=== PATIENT | male | born 1935 | race Caucasian/White ===

== ENCOUNTER 2024-04-25 11:20 | Outpatient (REF) | payer MEDICARE, BC, SELFPAY ==
--- NOTE | ~2024-04-25 | XR_ITS ---
Exam: X-ray lumbar spine, right knee, right hip and pelvis INDICATION: Patient states fall and pain in the hip and back COMPARISON: None TECHNIQUE: 4 views of the lumbar spine, 3 views of the right knee, and 2 views of the pelvis as well as AP and frog lateral views of the right hip. FINDINGS: Lumbar spine: Mild dextro scoliosis of the lumbar spine Bones are diffusely demineralized. Surgical clips right upper quadrant. Extensive atherosclerotic aortoiliac calcifications. Facet arthritis in the lower spine. Multilevel lumbar spondylosis. Multilevel superior and inferior endplate can cavities most notable at L1, of indeterminate age and etiology. Grade 1 anterolisthesis of L4 on L5 with mild loss of disc space height. Advanced degenerative changes with loss of disc space height at L5-S1. Pelvis and right hip: Diffuse demineralization. Moderate degenerative changes in the bilateral sacroiliac joints. Marked degenerative changes on single AP views of the left hip. Marked degenerative changes in the right hip with superolateral joint space narrowing. Additional imaging with CT scan recommended if there is concern for fracture or other underlying pathology. Right knee: Diffuse demineralization. Moderate joint effusion. Mild narrowing of the medial compartment. Tiny medial and patellofemoral osteophytes. XR/XR lumbar spine 2-3V IMPRESSION: 1. Multilevel lumbar spondylosis. 2. Multilevel superior and inferior endplate can cavities most notable at L1, of indeterminate age and etiology. 3. Marked degenerative changes in the bilateral hips. 4. Moderate joint effusion right knee. 5. Additional imaging with CT scan recommended if there is concern for fracture or other underlying pathology. Electronically signed by: Maggy Lieberman MD 05/22/2024 10:02 AM EDT
--- NOTE | ~2024-04-25 | XR_ITS ---
Exam: X-ray lumbar spine, right knee, right hip and pelvis INDICATION: Patient states fall and pain in the hip and back COMPARISON: None TECHNIQUE: 4 views of the lumbar spine, 3 views of the right knee, and 2 views of the pelvis as well as AP and frog lateral views of the right hip. FINDINGS: Lumbar spine: Mild dextro scoliosis of the lumbar spine Bones are diffusely demineralized. Surgical clips right upper quadrant. Extensive atherosclerotic aortoiliac calcifications. Facet arthritis in the lower spine. Multilevel lumbar spondylosis. Multilevel superior and inferior endplate can cavities most notable at L1, of indeterminate age and etiology. Grade 1 anterolisthesis of L4 on L5 with mild loss of disc space height. Advanced degenerative changes with loss of disc space height at L5-S1. Pelvis and right hip: Diffuse demineralization. Moderate degenerative changes in the bilateral sacroiliac joints. Marked degenerative changes on single AP views of the left hip. Marked degenerative changes in the right hip with superolateral joint space narrowing. Additional imaging with CT scan recommended if there is concern for fracture or other underlying pathology. Right knee: Diffuse demineralization. Moderate joint effusion. Mild narrowing of the medial compartment. Tiny medial and patellofemoral osteophytes. XR/XR knee RT 3V IMPRESSION: 1. Multilevel lumbar spondylosis. 2. Multilevel superior and inferior endplate can cavities most notable at L1, of indeterminate age and etiology. 3. Marked degenerative changes in the bilateral hips. 4. Moderate joint effusion right knee. 5. Additional imaging with CT scan recommended if there is concern for fracture or other underlying pathology. Electronically signed by: Maggy Lieberman MD 05/22/2024 10:02 AM EDT
--- NOTE | ~2024-04-25 | XR_ITS ---
Exam: X-ray lumbar spine, right knee, right hip and pelvis INDICATION: Patient states fall and pain in the hip and back COMPARISON: None TECHNIQUE: 4 views of the lumbar spine, 3 views of the right knee, and 2 views of the pelvis as well as AP and frog lateral views of the right hip. FINDINGS: Lumbar spine: Mild dextro scoliosis of the lumbar spine Bones are diffusely demineralized. Surgical clips right upper quadrant. Extensive atherosclerotic aortoiliac calcifications. Facet arthritis in the lower spine. Multilevel lumbar spondylosis. Multilevel superior and inferior endplate can cavities most notable at L1, of indeterminate age and etiology. Grade 1 anterolisthesis of L4 on L5 with mild loss of disc space height. Advanced degenerative changes with loss of disc space height at L5-S1. Pelvis and right hip: Diffuse demineralization. Moderate degenerative changes in the bilateral sacroiliac joints. Marked degenerative changes on single AP views of the left hip. Marked degenerative changes in the right hip with superolateral joint space narrowing. Additional imaging with CT scan recommended if there is concern for fracture or other underlying pathology. Right knee: Diffuse demineralization. Moderate joint effusion. Mild narrowing of the medial compartment. Tiny medial and patellofemoral osteophytes. XR/XR hip RT w PEL1V IMPRESSION: 1. Multilevel lumbar spondylosis. 2. Multilevel superior and inferior endplate can cavities most notable at L1, of indeterminate age and etiology. 3. Marked degenerative changes in the bilateral hips. 4. Moderate joint effusion right knee. 5. Additional imaging with CT scan recommended if there is concern for fracture or other underlying pathology. Electronically signed by: Maggy Lieberman MD 05/22/2024 10:02 AM EDT
== END 2024-04-25 11:21 | disposition home or self-care (01) ==
LOC: HO.XRAY 11:20
PROVIDERS: PCP Internal Medicine; Visit Provider Internal Medicine
DX: M79.604 Pain in right leg (principal)
CPT/HCPCS: 72100; 73502; 73562

== ENCOUNTER 2024-04-30 13:44 | Outpatient (AMB) | payer MEDICARE, SELFPAY ==
--- NOTE | 2024-04-30 13:44 | MHC.OFFVIS ---
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 The patient states that he 1st injured his low back approximately 1 year ago when he fell in his bathroom. He fell directly onto his back. He reaggravated his back several months ago while unloading boxes of tile from a pickup truck. The patient had acute onset of pain which radiated down his right leg. Has failed the last 3 months of conservative treatment including a home exercise program, topical creams, as well as Tylenol and anti-inflammatory medicines. The patient states that his low back pain is interfering with his activities of daily living and his ability to sleep well through the night. Also reports intermittent weakness in his right leg. He has been walking with a cane because of his weakness. Allergies No Known Allergies Allergy (Verified 04/30/24 13:48) Medication List - Last Reconciled 04/30/24 by Cedric Graves MD amlodipine 5 mg PO DAILY aspirin (Adult Low Dose Aspirin) 81 mg PO DAILY atorvastatin 40 mg PO DAILY clopidogrel 75 mg PO DAILY hydrochlorothiazide 25 mg PO DAILY omeprazole 20 mg PO DAILY oxybutynin chloride ER 10 mg PO DAILY tamsulosin 0.4 mg PO DAILY [facility] Social History (Updated 04/30/24 @ 13:53 by Porfirio Fritz) Alcohol intake: current Alcohol intake frequency: holidays/special occasions only Patient Tobacco Use Status: Never used Tobacco Physical Exam Const Other: Telehealth Results Reviewed Results Reviewed: X-rays of the patient's lumbar spine show moderate diffuse degenerative disc disease Assessment & Plan Assessment & Plan (1) Low back pain radiating to right leg: Code(s): M54.50 - Low back pain, unspecified; M79.604 - Pain in right leg Category: Medical Plan Mr. Cross presents with progressively worsening low back pain which radiates down his right leg most likely due to lumbar stenosis or a disc herniation. Thus, I will send the patient for an MRI of his lumbar spine for further evaluation. I will contact him by phone once the MRI results are available. He will call me prior to that time should his symptoms worsen in any way. I spent 22 minutes in reviewing the patient's records and imaging studies, speaking with the patient and documenting in the medical record. Orders: Orders lumbar spine wo con Today M54.50 - Low back pain, unspecified, M79.604 - Pain in right leg Coding Level of Care Code Tele New Pt Level 2 (54296) Diagnoses Low back pain radiating to right leg M54.50; M79.604
== END 2024-04-30 13:57 | disposition home or self-care (01) ==
LOC: HO.HOS 13:45
PROVIDERS: PCP Internal Medicine; Visit Provider Orthopaedic Surgery
DX: M54.50 Low back pain, unspecified (principal); M79.604 Pain in right leg
CPT/HCPCS: 99203

== ENCOUNTER → 2024-04-30 13:44 | Outpatient (BNVA) | payer MEDICARE, BC, SELFPAY | PROVIDERS: PCP Internal Medicine; Visit Provider Orthopaedic Surgery ==

== ENCOUNTER 2024-05-16 09:48 | Outpatient (AMB) | payer MEDICARE, SELFPAY ==
--- NOTE | 2024-05-16 09:51 | A.OFFVIS_ITS ---
Intake Visit Reasons: low back pain Intake Note: Juan is an 88-year-old male who presents with complaints of progressively worsening low back pain which radiates down his right leg. The patient states that he 1st injured his low back approximately 1 year ago when he fell in his bathroom. He fell directly onto his back. He reaggravated his back several months ago while unloading boxes of tile from a pickup truck. The patient had acute onset of pain which radiated down his right leg. Has failed the last 3 months of conservative treatment including a home exercise program, topical creams, as well as Tylenol and anti-inflammatory medicines. The patient states that his low back pain is interfering with his activities of daily living and his ability to sleep well through the night. Also reports intermittent weakness in his right leg. He has been walking with a cane because of his weakness. Allergies No Known Allergies Allergy (Verified 05/16/24 09:51) Medication List - Last Reconciled 05/16/24 by Cedric Graves MD amlodipine 5 mg PO DAILY aspirin (Adult Low Dose Aspirin) 81 mg PO DAILY atorvastatin 40 mg PO DAILY clopidogrel 75 mg PO DAILY hydrochlorothiazide 25 mg PO DAILY omeprazole 20 mg PO DAILY oxybutynin chloride ER 10 mg PO DAILY tamsulosin 0.4 mg PO DAILY [facility] Social History (Updated 04/30/24 @ 13:53 by Porfirio Fritz) Alcohol intake: current Alcohol intake frequency: holidays/special occasions only Patient Tobacco Use Status: Never used Tobacco Physical Exam Const Other: Well-nourished well-developed very friendly male awake alert and oriented x3 in no acute distress Back/Spine/Pelvis Other: Low back examination shows right-sided paraspinal muscle tenderness, pain with range of motion, positive straight leg raise test on the right at 70 degrees Results Reviewed Results Reviewed: MRI of the patient's lumbar spine performed at [facility] shows severe central stenosis at level L4-L5 Assessment & Plan Assessment & Plan (1) Low back pain radiating to right leg: Code(s): M54.50 - Low back pain, unspecified; M79.604 - Pain in right leg Category: Medical Plan Mr. Cross presents with progressively worsening low back pain which radiates down his right leg as well as associated right leg weakness possibly due to lumbar stenosis. Thus, I will arrange for the patient to have a follow-up appointment in our neurosurgery department here at [facility]. The patient will contact me prior to that appointment should his symptoms worsen in any way. Feel free to call me at any time should questions regarding his orthopedic management arise. I spent 21 minutes in reviewing the patient's records and imaging studies, seeing the patient and documenting in the medical record. Coding Level of Care Code Est Pt Level 3 (22414) Complex EM visit Add On G2211 Diagnoses Low back pain radiating to right leg M54.50; M79.604
== END 2024-05-16 10:19 | disposition home or self-care (01) ==
PROVIDERS: PCP Internal Medicine; Visit Provider Orthopaedic Surgery
DX: M54.50 Low back pain, unspecified (principal); M79.604 Pain in right leg
CPT/HCPCS: 99213

== ENCOUNTER → 2024-05-16 09:48 | Outpatient (BNVA) | payer BC, SELFPAY | PROVIDERS: PCP Internal Medicine; Visit Provider Orthopaedic Surgery ==

== ENCOUNTER 2024-06-03 10:03 | Outpatient (AMB) | payer MEDICARE, SELFPAY ==
--- NOTE | 2024-06-03 10:21 | A.SPINEOV_ITS ---
Intake Visit Reasons: low back pain down to his right leg Intake Note: Mr. Cross is here today c/o low back pain radiating down his rt. leg. MRI done @ [facility]. [employer] Pile [employer] Operator Required: No Allergies No Known Allergies Allergy (Verified 06/03/24 10:22) Assessment & Plan Assessment & Plan (1) Lumbar stenosis: Code(s): M48.061 - Spinal stenosis, lumbar region without neurogenic claudication Category: Medical (2) Spondylolisthesis, lumbar region: Code(s): M43.16 - Spondylolisthesis, lumbar region Category: Medical Plan Dear Dr Graves, Thank you for referring Mr Cross to our office today. He is a very nice 88-year-old gentleman history of a stroke, on Plavix and aspirin since 2017, presents with several months low back pain centered in the middle of his low back radiating down his right leg into his outer calf in his foot. It is aggravated with standing and walking and better when he sits but also can be present at nighttime. To this point, he just been really hoping that it would go away, but unfortunately the symptoms have only continued to progress. He will take an Aleve occasionally if he knows he is going to have to go somewhere where it will require prolonged standing or walking. He had an MRI done at the [facility] and this shows spondylolisthesis at L4-5 with severe stenosis. PMH: He has a history of bladder cancer, he has had intra bladder chemotherapy in his follow up for this with routine cystoscopies and has been stable. 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 He was started on aspirin and Plavix for this. I reviewed the notes from [facility] at that time and it was unclear why he had the stroke. He has been on aspirin and Plavix ever since that time. The original note from the neurologist recommended he stay on it for just 3 months. History of hypertension, high cholesterol, BPH, GERD, cholecystectomy. He denies any CAD, arrhythmias, pulmonary problems, major abdominal surgeries, blood clots, renal disease. Social hx: He does not smoke, he does routinely use alcohol but not on a daily basis, no marijuana recreational drugs Medications: Aspirin, Plavix, amlodipine, hydrochlorothiazide, oxybutynin, tamsulosin, omeprazole, multivitamin, stool softener Allergies: None Physical exam: He is awake alert oriented no acute distress, he is able stand up out of a chair on his own, reports midline low back pain, motor examination reveals weakness of his right hand which I would rate as 4-5 rest of his motor strength is normal. Reflexes diminished in the lower extremities. Gait is normal. Imaging review: Lumbar MRI done at the [facility] shows spondylolisthesis at L4-5. Surprisingly he has overall fairly good disc quality. There are some degenerative changes and overgrowth of ligament and facets causing moderate to severe stenosis at L4-5. There is also a grade 1 spondylolisthesis at this level. There are some other more minor degenerative changes but none significant as L4-5. There is an old compression fracture at L1. Impression: 88-year-old male presents with several months of midline back pain radiating down his right leg into his calf and foot which seems consistent with the stenosis we see at L4-5. There is a spondylolisthesis at L4-5 and because of the complaint of back pain, we should get standing flexion-extension x-rays. If there is no instability, this is something usually Dr. Tijerina will treat with a simple decompression. We did briefly discuss this as well as the recovery, risks, benefits etc.. I will review everything with Dr. Tijerina and get back to the patient with a final plan. Obviously, he could consider things like injections and physical therapy as part of his treatment plan, but typically with central canal stenosis like this those are limited yield to what they can provide him for any long-term benefit. We did talk about the fact that he would need to come off his aspirin and Plavix if he were to consider surgery. Typically this is 10 days before the surgery and resumed 1 week after surgery. Thank you for allowing us to care for your patient. The total time spent with this visit with this patient was 45 minutes reviewing history, physical exam, lumbar imaging review, and implementation of treatment plan or further diagnostic testing Saad Tijerina MD,PhD [facility] Orders: Orders XR lumbar spine 4V min Today M43.16 - Spondylolisthesis, lumbar region, M48.061 - Spinal stenosis, lumbar region without neurogenic claudication Coding Level of Care Code New Pt Level 4 (83258) Diagnoses Lumbar stenosis M48.061 Spondylolisthesis, lumbar region M43.16
== END 2024-06-03 11:29 | disposition home or self-care (01) ==
PROVIDERS: PCP Internal Medicine; Referring Provider Orthopaedic Surgery; Visit Provider Physician Assistant
DX: M48.061 Spinal stenosis, lumbar region without neurogenic claudication (principal); M43.16 Spondylolisthesis, lumbar region
CPT/HCPCS: 99204

== ENCOUNTER 2024-06-03 10:03 | Outpatient (REF) | payer MEDICARE, SELFPAY ==
--- NOTE | ~2024-06-03 | XR_ITS ---
EXAMINATION: XR LUMBOSACRAL SPINE CLINICAL INFORMATION: Lumbar spinal stenosis, without neurogenic claudication. COMPARISON: Lumbar spine radiographs dated 04/25/2024. TECHNIQUE: AP, bilateral oblique and lateral views of the lumbar spine and lateral view of the lumbosacral junction. FINDINGS: There is bony demineralization. There is a slight lumbar levoscoliosis. There is a mild L1 anterior wedge compression fracture. At T9-10 through T11-12, there is mild disc space narrowing, with vacuum disc phenomenon. At L4-5, there is a 4 mm anterolisthesis. At L5-S1, there is marked degenerative disc disease, with vacuum disc phenomenon. No acute fracture or spondylolisthesis is seen. There is multi-level thoracolumbar endplate arthropathy. The posterior elements are intact. No spondylolysis defect is seen. There is facet arthropathy at L5-S1. Aortoiliac atherosclerotic calcifications are seen. XR/XR lumbar spine 4V min IMPRESSION: 1. There is a mild L1 anterior wedge compression fracture. 2. There is multi-level lower thoracic and lumbar degenerative disc disease, most pronounced at L5-S1, where degenerative disc disease is marked. 3. There is a slight lumbar levoscoliosis. 4. There is facet arthropathy at L5-S1. Electronically signed by: Terence Simental MD 06/03/2024 09:17 PM EDT
== END 2024-06-03 10:04 | disposition home or self-care (01) ==
LOC: HO.XRAY 10:03
PROVIDERS: PCP Internal Medicine; Visit Provider Physician Assistant
DX: M48.061 Spinal stenosis, lumbar region without neurogenic claudication (principal); M43.16 Spondylolisthesis, lumbar region
CPT/HCPCS: 72110; 99202

== ENCOUNTER 2024-07-11 06:54 | Day surgery (SDC) | payer MEDICARE, SELFPAY ==
[2024-06-26 10:32] VITALS: BMI 36.0
--- NOTE | 2024-07-09 13:25 | HO.ANESPROP2 ---
Documented by User: Ailin Chiu NP 07/09/24 13:32 HPI - Anesthesia Eval Consult details Narrative: 88yo M for Right L4-5 Conor Laminotomy/Decompression Plavix for hx CVA PMFSH Active Problems Active Problems: All Active Problems Spondylolisthesis, lumbar region (Acute) Lumbar stenosis (Acute) Low back pain radiating to right leg (Acute) Past Medical History Medical History (Updated 06/27/24 @ 09:30 by Soha Ch RN) Diverticulosis BPH (benign prostatic hyperplasia) [place] (hard of hearing) Snores OAB (overactive bladder) Hx of bladder cancer (~2018) Arthritis Back pain GERD (gastroesophageal reflux disease) Hx-TIA (transient ischemic attack) (~2016) HLD (hyperlipidemia) HTN (hypertension) Surgical History Surgical History (Updated 06/27/24 @ 09:31 by Soha Ch RN) Hx of arthroscopic knee surgery Hx of bilateral cataract extraction Hx laparoscopic cholecystectomy (~2013) Hx of cystoscopy (~2018) Hx of colonoscopy Social History Social History (Updated 06/26/24 @ 10:30 by Soha Ch RN) Household Members: Spouse Housing: House Are you a primary child adolescent care to a significant other at home: No Do you presently have visiting nurse or other home services: No Alcohol intake: current Alcohol intake frequency: holidays/special occasions only Patient Tobacco Use Status: Never used Tobacco Use of substances other than those prescribed or required for medical reasons: No Have you been hit, kicked, punched, or otherwise hurt by someone within the past year? If so, by whom?: No Are you DNR?: No Advance Directives: No Advance Directives Information Provided: Yes Advance Directives on File: No Recently lost weight without trying: No Nutrition Risks: Surgical patient >75years Meds Allergies Allergy/AdvReac Type Severity Reaction Status Date / Time No Known Allergies Allergy Verified 07/11/24 07:07 Home Medications ?Medication ?Instructions ?Recorded ?Confirmed ?Last Taken ?Type amlodipine 5 mg tablet 5 mg PO DAILY 04/30/24 06/26/24 07/11/24 History aspirin 81 mg tablet,delayed 81 mg PO DAILY 04/30/24 06/26/24 Unknown History release (Adult Low Dose Aspirin) atorvastatin 40 mg tablet 40 mg PO DAILY 04/30/24 06/26/24 Unknown History clopidogrel 75 mg tablet 75 mg PO DAILY 04/30/24 06/26/24 Unknown History hydrochlorothiazide 25 mg tablet 25 mg PO DAILY 04/30/24 06/26/24 Unknown History omeprazole 20 mg capsule,delayed 20 mg PO DAILY 04/30/24 06/26/24 Unknown History release oxybutynin chloride 10 mg 10 mg PO DAILY 04/30/24 06/26/24 Unknown History tablet,extended release 24 hr tamsulosin 0.4 mg capsule 0.4 mg PO DAILY 04/30/24 06/26/24 Unknown History cholecalciferol (vitamin D3) 25 25 mcg PO DAILY 06/26/24 06/26/24 Unknown History mcg (1,000 unit) capsule (Vitamin D3) multivitamin 1 tab PO DAILY 06/26/24 06/26/24 Unknown History Exam Height,Weight and Vital Signs: Height 5 ft 7 in Weight 104.326 kg Pertinent Lab Results Pertinent Lab Results: CBC and BMP 06/2024 from outside facility [place] Narrative Narrative: EKG 06/2024 from outside facility SR with 1st deg AV block @ 67 Assessment and Plan Assessment Anesthesia Assessment: Chart Reviewed Documented by User: Vira Hanson MD 07/11/24 07:54 PMFSH Past Medical History Medical History (Updated 06/27/24 @ 09:30 by Soha Ch, HARPREET) Diverticulosis BPH (benign prostatic hyperplasia) [place] (hard of hearing) Snores OAB (overactive bladder) Hx of bladder cancer (~2018) Arthritis Back pain GERD (gastroesophageal reflux disease) Hx-TIA (transient ischemic attack) (~2016) HLD (hyperlipidemia) HTN (hypertension) Surgical History Surgical History (Updated 06/27/24 @ 09:31 by Shoa Ch, HARPREET) Hx of arthroscopic knee surgery Hx of bilateral cataract extraction Hx laparoscopic cholecystectomy (~2013) Hx of cystoscopy (~2019) Hx of colonoscopy History of Problems with Anesthesia: No Social History Social History (Updated 06/26/24 @ 10:30 by Soha Ch RN) Household Members: Spouse Housing: House Are you a primary child adolescent care to a significant other at home: No Do you presently have visiting nurse or other home services: No Alcohol intake: current Alcohol intake frequency: holidays/special occasions only Patient Tobacco Use Status: Never used Tobacco Use of substances other than those prescribed or required for medical reasons: No Have you been hit, kicked, punched, or otherwise hurt by someone within the past year? If so, by whom?: No Are you DNR?: No Advance Directives: No Advance Directives Information Provided: Yes Advance Directives on File: No Recently lost weight without trying: No Nutrition Risks: Surgical patient >75years Meds Allergies Allergy/AdvReac Type Severity Reaction Status Date / Time No Known Allergies Allergy Verified 07/11/24 07:07 Home Medications ?Medication ?Instructions ?Recorded ?Confirmed ?Last Taken ?Type amlodipine 5 mg tablet 5 mg PO DAILY 04/30/24 06/26/24 07/11/24 History aspirin 81 mg tablet,delayed 81 mg PO DAILY 04/30/24 06/26/24 Unknown History release (Adult Low Dose Aspirin) atorvastatin 40 mg tablet 40 mg PO DAILY 04/30/24 06/26/24 Unknown History clopidogrel 75 mg tablet 75 mg PO DAILY 04/30/24 06/26/24 Unknown History hydrochlorothiazide 25 mg tablet 25 mg PO DAILY 04/30/24 06/26/24 Unknown History omeprazole 20 mg capsule,delayed 20 mg PO DAILY 04/30/24 06/26/24 Unknown History release oxybutynin chloride 10 mg 10 mg PO DAILY 04/30/24 06/26/24 Unknown History tablet,extended release 24 hr tamsulosin 0.4 mg capsule 0.4 mg PO DAILY 04/30/24 06/26/24 Unknown History cholecalciferol (vitamin D3) 25 25 mcg PO DAILY 06/26/24 06/26/24 Unknown History mcg (1,000 unit) capsule (Vitamin D3) multivitamin 1 tab PO DAILY 06/26/24 06/26/24 Unknown History Exam Airway Mallampati Class: III TM Dist: >3cm Neck ROM: Limited Loose/Missing/Broken Teeth: Yes Heart: RRR Lungs: CTA Assessment and Plan Assessment Anesthesia Assessment: Anesthesia Plan Discussed Final Anesthetic Review History of Problems with Anesthesia: No NPO: Yes ASA Class: III Final Preanesthetic Review: Meds/Allgs Chart Reviewed, Consent Obtained/Reviewed and Anes Risks/Benef Reviewed Patient Risk: Intermediate Procedure Risk: Intermediate Anesthetic Plan Anesthetic Plan: GA Disposition: Standard PACU
[2024-07-11] VITALS (8 sets, daily range): BP systolic 144–167; BP diastolic 67–95; PULSE 66–78; RESP 14–16; TEMP 36.1–36.6; O2SAT 95–98
--- NOTE | 2024-07-11 07:03 | P.HPSUR_ITS ---
Pre-Procedural Eval Section A - 24 Hr Update-Section A only Date of Service: 07/11/24 The patient is an INPATIENT: No Changes since office visit: No Cold of Flu in the past 2 weeks, No New Medical Problems, No Changes in Medication and No Patient answered all questions The patient has been examined within 24 hours of the surgical procedure. The History & Physical has been completed within 30 days and I have reviewed it.: No Section B - Complete if H&P > 30 days Chief Complaint: Spinal stenosis, lumbar region without neurogenic Allergies: Allergies Allergy/AdvReac Type Severity Reaction Status Date / Time No Known Allergies Allergy Verified 06/26/24 10:30 Review of Systems Sugical H&P ROS: Negative: Constitution, Cardiovascular, Respiratory, Neurological, Psychiatric, Hem-Onc, Allergic/Immunologic, Gastrointestinal, Genitourinary, Musculoskeletal, Integumentary, Endocrine and Eyes/Ears/Nose/Thro at Exam Surgical H&P Exam: Normal: HEENT, Normal: Heart, Normal: Lungs, Normal: Extremities, Normal: Abdomen, Normal: Skin and Normal: Neurological (awake, alert,oriented x 3 ) Plan Diagnosis/Plan: Unchanged right L4-5 hemilaminotomy and decompression Time Spent With Patient Time: Total time managing care of this patient today _6___ minutes.
[2024-07-11] MEDS: Gabapentin 300 MG CAPSULE PO (07:30)
[2024-07-11] MEDS: methocarbamoL 750 MG TABLET PO (07:31)
[2024-07-11] MEDS: Lactated Ringers 1,000 ML 100 ML IVCONT (07:59)
--- NOTE | 2024-07-11 08:34 | P.DS_ITS ---
DS: Providers Provider Date of Service: 07/11/24 Date of discharge: 07/11/24 Primary care physician: Gerber Daniels MD Admitting clinician: Mehrdad Tijerina DS: Diagnosis Discharge Diagnosis (1) Lumbar stenosis: Status: Acute DS: Summary Time Attestation Discharge Coordination Time (in mins): 4 Quality: Safe Use of Opioids Does Pt have an Active Cancer Diagnosis on the Problem List?: No Quality: Stroke Does the patient have a stroke diagnosis?: No Physical Exam Vital Signs: Vital Signs: Last Vital Signs Temp 97.0 F 07/11/24 08:00 Pulse 76 07/11/24 08:00 Resp 14 07/11/24 08:00 BP 144/67 H 07/11/24 08:00 Pulse Ox 95 07/11/24 08:00 O2 Del Method Room Air 07/11/24 08:00 BMI result Body Mass Index 36.0 Discharge Plan Discharge Patient Disposition: Home, Self-Care Referrals: Gerber Daniels MD [Primary Care Provider] - 1 Week Discharge Medications: New docusate sodium [Colace] 100 mg capsule 100 mg PO BID Qty: 20 0RF oxycodone 5 mg tablet 5 mg PO Q4H PRN (Reason: pain) Qty: 20 0RF Rx Instructions: Partial Fill upon patient request. Continued multivitamin Tablet 1 tab PO DAILY cholecalciferol (vitamin D3) [Vitamin D3] 25 mcg (1,000 unit) Capsule 25 mcg PO DAILY atorvastatin 40 mg tablet 40 mg PO DAILY amlodipine 5 mg tablet 5 mg PO DAILY hydrochlorothiazide 25 mg tablet 25 mg PO DAILY oxybutynin chloride 10 mg tablet extended release 24hr 10 mg PO DAILY tamsulosin 0.4 mg capsule 0.4 mg PO DAILY omeprazole 20 mg capsule,delayed release(DR/EC) 20 mg PO DAILY Held clopidogrel 75 mg tablet 75 mg PO DAILY Hold Instructions: Resume on 07/18/24. you may resume plavix one week after surgery aspirin [Adult Low Dose Aspirin] 81 mg tablet,delayed release (DR/EC) 81 mg PO DAILY Hold Instructions: Resume on 07/18/24. You may resume 1 week after surgery Discharge Orders: Discharge Order (Routine); Ordered 07/11/24 Ordered By: Saad Penny Diet: Advance to usual diet Activity on Discharge: As tolerated Activity Restrictions/Additional Instructions: After your spinal surgery we ask you to observe the following restrictions/guidelines: Activity: It is normal to feel some discomfort as you increase your activity, but that will improve with time. We ask you avoid heavy lifting or acitivities that cause pain. As a general ru le, 8lbs is a safe limit for lifting right after surgery. Walk as much as you feel comfortable but not to exhaustion. You will feel extra tired the first few days after surgery. Stay well hydrated. It is OK to walk up and down stairs You may return to driving when you are off narcotics (such as vicodin, oxycodone, dilaudid, etc), and you are back to normal functional capacity. If you have any concerns please check with office before driving. Return to work is specific to each patient and each surgery, so please speak with your doctor/PA at first follow up. Please bring paperwork such as FMLA at that time if you need it filled out. Medications: You may resume aspirin and Plavix 1 week after surgery For optimum pain control, it is best to start with a combination of 500 mg of Tylenol every 4 hours with 600 mg of Motrin every 8 hours, and use narcotics as needed in between for breakthrough pain. We will give you a short supply of narcotics after surgery (usually one weeks worth). If you need more please call the office but do not use more than prescribed. You will need to give our office 48 hours notice if you need narcotics refilled and we do not fill narcotics on weekends or evenings. If you are on a narcotic, it is a good idea to take a stool softener such as colace or senna to avoid constipation If you take blood thinner such as aspirin, Plavix, Coumadin, Effient, Eliquis etc for conditions such as Afib, DVT, Pulmonary embolus, coronary disease, stents etc please speak with your surgeon about specific details as to when you can resume these medications. You can resume NSAIDs on post op day 1 (eg: Motrin, Naproxen, etc). Follow up: Please call the office, , after surgery to arrange a 3 week follow up for wound check. Wound Care: You may remove your dressing on the first day after surgery. ?You may ?leave open to air. Please do not remove the steri strips underneath. they will fall off on their own in one week. IT IS NORMAL FOR THE WOUND TO OOZE OR BE BLOODY FOR A FEW DAYS AFTER SURGERY. ?IF THIS HAPPENS JUST PLACE NEW DRESSING OVER IT TO AVOID STAINING CLOTHES. You may shower on post op day # 1 We ask that you do not let the water soak the wound. If it does get wet, just towel dry lightly. Please do not scrub your incision or place any type of chemical/ointment on the wound. No tub baths, pools or jacuzzis for one month. If you have any leaking or redness from your wound, or fevers, please call office Print Language: Gabonese
--- NOTE | 2024-07-11 09:30 | P.OP_ITS ---
Operative Note Operative Note Date of Service: 07/11/24 Narrative: Preoperative Diagnosis: L4-5 spinal stenosis/lateral recess stenosis/neural foraminal stenosis Operation: Right L4-5 Laminotomy, Partial facetectomy and foraminotomy with use of microscope Consent Informed Consent was obtained for this operation. I have explained the nature, purpose and benefits of the operation. I have discussed the risks and benefit of the operation including possible complications or adverse events with patient/family. Alternative(s) were discussed with the patient with their relative benefits and risks as well as the consequences of not accepting the operation were included in obtaining consent. Surgeon: TOBY LANDAVERDE MD, PHD Procedure Assisted By: Saad Montgomery Description of Procedure This patient is suffering from unilateral neurogenic claudication due to lumbar spinal stenosis. The patient was offered a decompression. The procedure complications were explained. The patient was consented. The patient was brought to the operating room and endotracheally intubated. The patient was turned in prone position on the Kvng frame. Prep and drape was done followed by timeout. The Physician assistant professor sculpture provided access. A mid lumbar incision was made followed by release of the paravertebral muscle on the right side to expose the right L4- 5 lamina and facet joints. An intraoperative x-ray was obtained to confirm the correct level. The microscope was brought in. I took over the procedure. The high-speed drill was used to do a right L4-5 laminotomy until flavum ligament was reached. A #2 Kerrison was used to expand the laminotomy near flush to the pedicles and to include a partial facetectomy. The flavum ligament was opened and resected with a #3 Kerrison to decompress the underlying thecal sac. The flavum ligament was removed to decompress the lateral recess and the exiting L5 nerve root. A long nerve hook could be easily passed along the medial side of the pedicle as a sign of adequate decompression. The microscope was removed. Hemostasis was done. The physician assistant professor sculpture close the Incision in 2 layers. Steri-Strips were used to approximate incision. An OpSite with Tegaderm was used to cover the incision. All sponge needle counts were correct. Patient was extubated and transported in stable is to recovery room. Anesthesia: General Estimated Blood Loss (ml): 15 Complications: None Duration of Surgery: Under 60 Minutes Postoperative Plan: Discharge to home
== END 2024-07-11 11:17 | disposition home or self-care (01) ==
PROVIDERS: PCP Internal Medicine; Visit Provider Neurological Surgery
PROC: (CPT 63047; principal; 2024-07-11 09:00)
DX: M48.061 Spinal stenosis, lumbar region without neurogenic claudication (principal); M43.16 Spondylolisthesis, lumbar region; I10 Essential (primary) hypertension; E78.00 Pure hypercholesterolemia, unspecified; K21.9 Gastro-esophageal reflux disease without esophagitis; Z86.73 Personal history of transient ischemic attack (TIA), and cerebral infarction without residual deficits; N40.0 Benign prostatic hyperplasia without lower urinary tract symptoms; Z85.51 Personal history of malignant neoplasm of bladder; Z79.01 Long term (current) use of anticoagulants; Z79.82 Long term (current) use of aspirin; Z79.899 Other long term (current) drug therapy; Z90.49 Acquired absence of other specified parts of digestive tract
CPT/HCPCS: 63047; J0131; J0690; J1100; J2405; J2704; J3010

== ENCOUNTER → 2024-07-11 06:54 | Outpatient (BNV) | payer MEDICARE, SELFPAY | PROVIDERS: PCP Internal Medicine; Visit Provider Neurological Surgery | DX: M48.061 Spinal stenosis, lumbar region without neurogenic claudication (principal) | CPT/HCPCS: 63047; 99499 ==

== ENCOUNTER 2024-08-01 11:16 | Outpatient (AMB) | payer MEDICARE, SELFPAY ==
--- NOTE | 2024-08-01 11:23 | HO.SPINEOV ---
Intake Visit Reasons: 1st post op Intake Note: Mr. Cross is here today for his 1st post-op visit. Hand Ii Blocker Required: No Allergies No Known Allergies Allergy (Verified 07/11/24 07:07) Assessment & Plan Assessment & Plan (1) Lumbar stenosis: Code(s): M48.061 - Spinal stenosis, lumbar region without neurogenic claudication Category: Medical Plan Operation: Right L4-5 Laminotomy, Partial facetectomy and foraminotomy Juan comes in today for his 1st postoperative visit. He reports she is very satisfied with the surgery and feels much better than he did preoperatively. The patient reports he is up walking around and completing the majority of his ADLs. 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 He does still reports some residual right-sided leg pain, which we discussed. This is likely due to the postoperative inflammation he was experiencing accompanied by his increased activity by returning to work the day after surgery. No new neurological deficits. Patient is able to ambulate well, rises from a seated position without difficulty. Incision site is closed, well healing, with no signs of drainage. We will follow-up with the patient in 6 weeks for their 2nd postoperative visit. Joel Tijerina MD,PhD [facility] Coding Level of Care Code Global (43899) Diagnoses Lumbar stenosis M48.061
== END 2024-08-01 11:38 | disposition home or self-care (01) ==
PROVIDERS: PCP Internal Medicine; Visit Provider Physician Assistant
DX: M48.061 Spinal stenosis, lumbar region without neurogenic claudication (principal)
CPT/HCPCS: 99024

== ENCOUNTER → 2024-08-01 11:16 | Outpatient (BNVA) | payer MEDICARE, SELFPAY | PROVIDERS: PCP Internal Medicine; Visit Provider Physician Assistant | DX: M48.061 Spinal stenosis, lumbar region without neurogenic claudication (principal); Z47.89 Encounter for other orthopedic aftercare; Z98.890 Other specified postprocedural states | CPT/HCPCS: 99212 ==

== ENCOUNTER 2024-09-09 13:09 | Outpatient (AMB) | payer MEDICARE, SELFPAY ==
--- NOTE | 2024-09-09 13:13 | MHC.OFFVIS ---
Intake Visit Reasons: Right knee pain Intake Note: [place] 89 yr old male presents with complaints of progressively worsening right knee pain. He describes his pain as sharp in nature. His pain has gotten worse over the last year in spite of continued non operative treatments. He has tried physical therapy exercises which aggravated his pain. He has also tried Aleve and Tylenol which gave him minimal relief. He denies any locking or giving way. He would like to hold off on surgery for as long as possible. Allergies No Known Allergies Allergy (Verified 09/09/24 13:24) Medication List - Last Reconciled 09/09/24 by Cedric Graves MD amlodipine 5 mg PO DAILY aspirin (Adult Low Dose Aspirin) 81 mg PO DAILY atorvastatin 40 mg PO DAILY cholecalciferol (vitamin D3) (Vitamin D3) 25 mcg PO DAILY clopidogrel 75 mg PO DAILY docusate sodium (Colace) 100 mg PO BID hydrochlorothiazide 25 mg PO DAILY multivitamin 1 tab PO DAILY omeprazole 20 mg PO DAILY oxybutynin chloride ER 10 mg PO DAILY oxycodone 5 mg PO Q4H PRN tamsulosin 0.4 mg PO DAILY PFSH Medical History (Updated 09/09/24 @ 13:34 by Cedric Graves MD) Diverticulosis BPH (benign prostatic hyperplasia) [place] (hard of hearing) Snores OAB (overactive bladder) Hx of bladder cancer (~2018) Arthritis Back pain GERD (gastroesophageal reflux disease) Hx-TIA (transient ischemic attack) (~2017) HLD (hyperlipidemia) HTN (hypertension) Surgical History (Updated 06/27/24 @ 09:31 by Soha Ch RN) Hx of arthroscopic knee surgery Hx of bilateral cataract extraction Hx laparoscopic cholecystectomy (~2013) Hx of cystoscopy (~2019) Hx of colonoscopy Social History Household Members: Spouse Housing: House Are you a primary progressive care manager to a significant other at home: No Do you presently have visiting nurse or other home services: No Alcohol intake: current Alcohol intake frequency: holidays/special occasions only Patient Tobacco Use Status: Never used Tobacco Physical Exam Const Other: Well-nourished well-developed very friendly male awake alert and oriented x3 in no acute distress Extrem Other: Right knee examination shows a minimal effusion palpable crepitus with of motion, pain with range of motion, no instability Office Procedures AMB Joint Injection/Aspiration Joint Injection/Aspiration Primary Site: right knee Prep: site was prepped using aseptic technique Injected: 40 mg of, DepoMedrol and 1% plain lidocaine Procedure: The patient tolerated the procedure well Coding - Large joint Procedure code (CPT) selection complete Results Reviewed Results Reviewed: X-rays of the patient's right knee taken previously show joint space narrowing, subchondral sclerosis, no acute bony abnormalities Assessment & Plan Assessment & Plan (1) Arthritis of right knee: Code(s): M17.11 - Unilateral primary osteoarthritis, right knee Category: Medical (2) Right knee pain: Code(s): M25.561 - Pain in right knee Plan James presents with right knee pain due to degenerative joint disease. I had a lengthy discussion with the patient regarding the treatment options. The risks and benefits of a right knee cortisone injection were discussed at length with the patient. The patient wished to proceed. He tolerated the injection well. He will continue with his home exercise program. He will contact me prior to his follow-up appointment in 3 months should any questions or concerns arise. Feel free to call me at any time should questions regarding his orthopedic management arise. I spent 22 minutes in reviewing the patient's records and imaging studies, seeing the patient and documenting in the medical record. Orders: Orders AMB Joint Injection/Aspiration Today M17.11 - Unilateral primary osteoarthritis, right knee Coding Level of Care Code Est Pt Level 3 (04959) Complex EM visit Add On G2211 Diagnoses Arthritis of right knee M17.11 Right knee pain M25.561 CPT Codes Coding - Large joint: 05209 - Large joint ([id number])
== END 2024-09-09 13:33 | disposition home or self-care (01) ==
PROVIDERS: PCP Internal Medicine; Visit Provider Orthopaedic Surgery
DX: M17.11 Unilateral primary osteoarthritis, right knee (principal)
CPT/HCPCS: 20610; 99213

== ENCOUNTER → 2024-09-09 13:09 | Outpatient (BNVA) | payer MEDICARE, SELFPAY | PROVIDERS: PCP Internal Medicine; Visit Provider Orthopaedic Surgery | DX: M17.11 Unilateral primary osteoarthritis, right knee (principal) | CPT/HCPCS: 20610; 99212; J1010; J2003 ==

== ENCOUNTER 2024-09-12 11:07 | Outpatient (AMB) | payer MEDICARE, SELFPAY ==
--- NOTE | 2024-09-12 11:11 | A.SPINEOV_ITS ---
Intake Visit Reasons: 2nd post op Intake Note: Mr. Cross is here today for his 2nd post op. Manager Studio Required: No Allergies No Known Allergies Allergy (Verified 09/09/24 13:24) Assessment & Plan Assessment & Plan (1) Lumbar stenosis: Code(s): M48.061 - Spinal stenosis, lumbar region without neurogenic claudication Category: Medical Plan Operation: Right L4-5 Laminotomy, Partial facetectomy and foraminotomy Juan is a pleasant 89 year old male who comes in today for his second postoperative visit. 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 He had also stated he still had some residual right-sided leg pain. He continues to suffer from issues with his right knee, which is being [place] up [place] [facility] [place] He feels his back pain and right hip pain are much better than before surgery. He has continued working, and feels he has made progress with his spine. Unfortunately he still has quite a bit of right knee and anterior tibilias pain, but he did say the recent knee injection he had was helpful for this. No new neurological deficits, patient ambulates well and rises from a seated position without trouble. Posterior incision site is closed and well healed. There is no need for continued routine follow up with Juan. He should continue following up with orthopedics. Joel Tijerina MD,PhD [facility] Coding Level of Care Code Global (13579) Diagnoses Lumbar stenosis M48.061
== END 2024-09-12 11:58 | disposition home or self-care (01) ==
PROVIDERS: PCP Internal Medicine; Visit Provider Physician Assistant
DX: M48.061 Spinal stenosis, lumbar region without neurogenic claudication (principal)
CPT/HCPCS: 99024

== ENCOUNTER → 2024-09-12 11:07 | Outpatient (BNVA) | payer MEDICARE, SELFPAY | PROVIDERS: PCP Internal Medicine; Visit Provider Physician Assistant | DX: M48.061 Spinal stenosis, lumbar region without neurogenic claudication (principal) | CPT/HCPCS: 99212 ==

== ENCOUNTER 2024-12-10 13:08 | Outpatient (AMB) | payer MEDICARE, SELFPAY ==
--- NOTE | 2024-12-10 13:13 | MHC.OFFVIS ---
Vital Signs 12/10/24 13:20 Height 5 ft 7 in Weight 230 lb BMI 36.0 Intake Visit Reasons: Right shoulder pain Intake Note: Juan is an 89 year old male who presents with complaints of progressively worsening right shoulder pain. He describes his pain as achy in nature. Most of the pain is along the lateral aspect of his right shoulder. The patient states that his right shoulder pain is interfering with his activities of daily living and his ability to sleep well through the night. He has tried Tylenol and anti-inflammatory medicines which gave him only mild relief. Would like to hold off on surgery if at all possible. Allergies No Known Allergies Allergy (Verified 12/10/24 13:21) Medication List - Last Reconciled 12/10/24 by Cedric Graves MD amlodipine 5 mg PO DAILY aspirin (Adult Low Dose Aspirin) 81 mg PO DAILY atorvastatin 40 mg PO DAILY cholecalciferol (vitamin D3) (Vitamin D3) 25 mcg PO DAILY clopidogrel 75 mg PO DAILY docusate sodium (Colace) 100 mg PO BID hydrochlorothiazide 25 mg PO DAILY multivitamin 1 tab PO DAILY omeprazole 20 mg PO DAILY oxybutynin chloride ER 10 mg PO DAILY oxycodone 5 mg PO Q4H PRN tamsulosin 0.4 mg PO DAILY PFSH Medical History (Updated 12/10/24 @ 14:00 by Cedric Graves MD) Diverticulosis BPH (benign prostatic hyperplasia) [place] (hard of hearing) Snores OAB (overactive bladder) Hx of bladder cancer (~2019) Arthritis Back pain GERD (gastroesophageal reflux disease) Hx-TIA (transient ischemic attack) (~2016) HLD (hyperlipidemia) HTN (hypertension) Surgical History (Updated 06/27/24 @ 09:31 by Soha Ch RN) Hx of arthroscopic knee surgery Hx of bilateral cataract extraction Hx laparoscopic cholecystectomy (~2013) Hx of cystoscopy (~2019) Hx of colonoscopy Social History Household Members: Spouse Housing: House Are you a primary student career development specialist to a significant other at home: No Do you presently have visiting nurse or other home services: No Alcohol intake: current Alcohol intake frequency: holidays/special occasions only Patient Tobacco Use Status: Never used Tobacco Physical Exam Vital Signs: BMI result Body Mass Index 36.0 Const Other: Well-nourished well-developed very friendly male awake alert and oriented x3 in no acute distress Extrem Other: Bilateral upper extremity examination shows good capillary refill, no skin lesions noted, normal sensation light touch Right shoulder examination shows slightly decreased range of motion when compared to his left shoulder, 4+ out of 5 strength with supraspinatus testing, positive impingement signs, no instability Office Procedures AMB Joint Injection/Aspiration Joint Injection/Aspiration Primary Site: right shoulder Prep: site was prepped using aseptic technique Injected: 40 mg of, DepoMedrol and 1% plain lidocaine Procedure: The patient tolerated the procedure well Coding - Large joint Procedure code (CPT) selection complete Assessment & Plan Assessment & Plan (1) Impingement of right shoulder: Code(s): M25.811 - Other specified joint disorders, right shoulder Category: Medical (2) Right shoulder pain: Code(s): M25.511 - Pain in right shoulder Plan Mr. Cross presents with right shoulder pain due to impingement syndrome. The risks and benefits of a right shoulder cortisone injection were discussed at length with the patient. The patient wished proceed. He tolerated the injection well. He will continue with his home stretching program. He will contact me prior to his follow-up appointment in 3 months should any questions or concerns arise. Feel free to call me at any time should questions regarding his orthopedic management arise. I spent 22 minutes in reviewing the patient's records and imaging studies, seeing the patient and documenting in the medical record. Orders: Orders AMB Joint Injection/Aspiration Today M25.811 - Other specified joint disorders, right shoulder Coding Level of Care Code Est Pt Level 3 (06128) Complex EM visit Add On G2211 Diagnoses Impingement of right shoulder M25.811 Right shoulder pain M25.511 CPT Codes Coding - 74408 Large joint: 62788 - Large joint ([id number])
[2024-12-10 13:20] VITALS: BMI 36.0
--- OUTSIDE RECORDS SUMMARY | 2024-12-10 15:25 | XMS_ITS | Encounter Summary ---
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 Phone Sarah Ponce NP Primary Care Provider [phone] Reason for Referral * Home Health (Routine) - Closed Specialty Diagnoses / Procedures Referred By Chaz garvey Referred To Contact Home Health Services Diagnoses Acute on chronic diastolic congestive heart failure (CMS/HCC) Jessi Garner MD [address] [place] [address] Phone: tel: fax: [address] [address] Phone: tel: Referral ID Status Reason Start Date Expiration Date V isits Requested Visits Authorized [id number] Closed Consult and Treat 12/05/2024 12/05/2025 1 1 Reason for Visit * Reason Comments Shortness of Breath SOB x 1 week, Admitt ed Fri for new onset CHF. Left AM on Monday. Increasing sob and BLE edema * Auth/Cert (Routine) Specialty Diagnoses / Procedures Referred By Chaz garvey Referred To Contact Diagnoses Shortness of breath Bilateral lower extremity edema Acute hypoxic respiratory failure Procedures [facility] IP/OBS CARE INITIAL MODERATE LEVEL PER DAY Quincy Little MD [address] [place] [address] Phone: tel: fax: [facility] Care Unit [address] [place] [address] Phone: tel: Referral ID Status Reason Start Date Expiration Date Visits Re quested Visits Authorized [id number] 1 1 Encounter Details Date Type Department Care Team (Latest Contact Info) Description 12/03/2024 11:52 PM EDT - 12/05/2024 5:28 PM EDT Hospital Encounter [facility] [address] [place] [address] Quincy Little MD [address] [place] [address] Jessi Garner MD [address] [place] [address] Shortness of breath (Primary Dx); Acute hypoxic respiratory failure (CMS/HCC); Bilateral lower extremity edema; Acute on chronic diastolic congestive heart failure (CMS/HCC) Discharge Disposition: Home-Health Care Svc Social History Tobacco Use Types Packs/Day Years Used Date Smoking Tobacco: Never Smokeless Tobacco: Never Alcohol Use Standard Drinks/Week Comments Yes 0 (1 standard drink = 0.6 oz pure alcohol) 2 drinks per day - vodka with orange juice Housing Instability Answer Date Recorde d Are you worried that in the next 2 months you may not have stable housing? Patient declined 12/04/2024 Food Access & Nutrition Answer Date Rec orded Do you have access to a vari ety of food including fruits and vegetables? Patient declined 12/04/2024 Health Literacy Answer Date Recorded How often do you need to hav e someone help you when you read instructions, pamphlets, or other written material from your doctor or pharmacy? Patient declined 12/04/2024 Caregiver: How often do you need to have someone help you when you read instructions, pamphlets, or other written material from your doctor or pharmacy? Not on file 025 Financial Risk Answer Date Recorded How hard is it for you to pa y for the very basics like food, housing, medical care, and air conditioning / heating? Patient declined 12/04/2024 Transportation Answer Date Recorded Has the lack of transportati on kept you from meetings, work, or from getting things needed for daily living? Patient declined 12/04/2024 Has the lack of transportati on kept you from medical appointments or from getting medications? Patient declined 12/04/2024 Social Isolation Answer Date Recorded How often do you feel lonely or isolated from those around you? Patient declined 12/04/2024 Food Risk Answer Date Recorded Within the past 12 months we worried whether our food would run out before we got money to buy more. Patient declined 025 Within the past 12 months th e food we bought just didn't last and we didn't have money to get more. Patient declined 11/10 Dependent Care Answer Date Recorded Do you need help finding or paying for care for your loved ones. For example, childhood teacher or elderly care for an older adult? Patient declined 12/04/2024 Education Answer Date Recorded Do you think completing more education or training, like finishing a GED, going to college, or learning a trade, would be helpful for you? Patient declined 12/04/2024 Employment and Income Answer Date Recor ded During the last four weeks, have you been actively looking for work? Patient declined 12/04/2024 Living Situation Answer Date Recorded What is your living situation? 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 Not on file Not on file Not o n file documented as of this encounter Last Filed Vital Signs Vital Sign Reading Time Taken Comments Blood Pressure 124/90 12/05/2024 2:15 PM EDT Pulse 95 12/05/2024 2:15 PM EDT Temperature 36.6 ??C (97.8 ??F) 12/05/2024 2:15 PM ED T Respiratory Rate 18 12/05/2024 2:15 PM EDT Oxygen Saturation 96% 12/05/2024 2:15 PM EDT Inhaled Oxygen Concentration - - Weight 106 kg (233 lb 3.2 oz) 12/05/2024 5:53 AM EDT Height 172.7 cm (5' 8 ) 12/04/2024 12:08 AM EDT Body Mass Index 35.46 12/04/2024 12:08 AM EDT documented in this encounter Discharge Summaries * Jessi Garner MD - 12/05/2024 2:42 PM EDT Images from the original note were not included. FINDLAY DISCHARGE SUMMARY Patient Information Joaquin Goldberg : 1935 [89 y.o.] Admitting Provider Quincy Little MD Discharge Provider Jessi Garner MD, Jessi Garner MD Primary Care Physician Sarah Ponce NP Admission Date 12/03/2024 Discharge Date 12/05/2024 Summary of Hospital Problems Presenting Chief Complaint: Shortness of breath, lower leg swelling. Primary Discharge Diagnosis: Acute on chronic diastolic congestive heart failure Acute hypoxic respiratory failure improved Secondary Discharge Diagnosis: Hypomagnesemia History of bladder cancer BPH GERD Discharge Destination: Home with services Code Status at Discharge: Full Code - Default Hospital Course Summary This is an 89-year-old obese male with history of hypertension, hyperlipidemia, CVA, bladder cancer, BPH, likely CHF, presenting to the emergency room with complaints of increasing shortness of breath, weight gain and lower extremity edema. Patient was recently admitted from 11/29/2024 to 12/01/2024 for volume overload, CHF at which time he was diuresed and discharged home as he became confused overnight and refused further hospitalization with plan to do outpatient echocardiogram. Was noted to be hypoxic in the ED. Acute hypoxic respiratory failure Secondary volume overload, CHF unknown EF. Patient was recently admitted for CHF exacerbation, at that time did not want to stay anymore in the hospital and a plan was to have outpatient echocardiogram if and follow-up with PCP. Patient however went home, noted having increased lower extremity edema and some exertional dyspneaand hence came to the ED for further evaluation. Noted to be slightly hypoxic on presentation. Was started on IV Lasix for diuresis, has been diuresing well with 40 mg twice daily. Chest x-ray does not show any evidence of acute infiltrates or any significant volume overload. Troponin within normal limits. Feels significantly better following IV Lasix. Patient has been insisting to go home since the day he came. Encouraged to stay for echocardiogram. Had echocardiogram done which showed normal LV regional wall motion. Left ventricular systolic function within normal range. EF of 55 to 60%. Right ventricle moderately dilated. Basal hypokinesis with apical hypokinesis, so- called Cruz sign present. Mild to moderate aortic stenosis noted. Borde rline pulmonary hypertension. Given echo findings of concern for Cruz sign, CTA chest was done, negative for PE. Patient has been diuresing with the IV Lasix, also does state that he has been having more salty soup over the past 1 week, must have likely precipitated him to go back into CHF exacerbation. Strongly discussed regarding medication and dietary compliance with low-salt diet and fluid restriction. Will switch to Lasix 60 mg in the morning and 40 mg in the evening for now. Continue spironolactone Recommend renal functions to be checked in 4 days Hypomagnesemia has been repleted History of bladder cancer BPH followed by urology as outpatient. Continue oxybutynin, Flomax and finasteride.History of CVA on aspirin Plavix and statin GERD on PPI Discussed with patient and spouse present at the bedside regarding plan of care. Discussed the importance of staying on dietary and medication compliance especially for the CHF management. Follow-up with PCP in a week To have renal functions checked in 4 days Follow-Up Instructions and Recommendations [facility] [address] [facility] [address] [facility] [address] Discharge Procedure Orders Basic metabolic panel Standing Status: Future Standing Exp. Date: 12/14/24 Scheduling Instructions: Please send to PCP - Sarah Ponce NP Ambulatory referral to Home Health Standing Status: Future Referral Priority: Routine Referral Type: Home Health Referral Reason: Consult and Treat Referral Location: [facility] Requested Specialty: Home Health Services Number of Visits Requested: 1 Discharge Medications Your medication list CHANGE how you take these medications Instructions Last Dose Given Next Dose Due furosemide 20 mg tablet Commonly known as: LASIX What changed: how much to take how to take this when to take this additional instructions Take 60mg daily in am and 40mg in evening CONTINUE taking these medications Instructions Last Dose Given Next Dose Due aspirin 81 mg EC tablet Take 1 tablet (81 mg total) by mouth 1 (one) time each day. atorvastatin 40 mg tablet Commonly known as: LIPITOR Take 1 tablet (40 mg total) by mouth 1 (one) time each day. clopidogreL 75 mg tablet Commonly known as: PLAVIX Take 1 tablet (75 mg total) by mouth 1 (one) time each day. finasteride 5 mg tablet Commonly known as: PROSCAR Take 1 tablet (5 mg total) by mouth 1 (one) time each day. metoprolol tartrate 25 mg tablet Commonly known as: LOPRESSOR Take 1 tablet (25 mg total) by mouth 2 (two) times a day. omeprazole [address] capsule Commonly known as: PriLOSEC Take 1 capsule (20 mg total) by mouth 1 (one) time each day. oxyBUTYnin XL 10 mg 24 hr tablet Commonly known as: DITROPAN-XL Take 1 tablet (10 mg total) by mouth 1 (one) time each day. spironolactone 25 mg tablet Commonly known as: ALDACTONE Take 1 tablet (25 mg total) by mouth 1 (one) time each day. tamsulosin 0.4 mg 24 hr capsule Commonly known as: FLOMAX Take 1 capsule (0.4 mg total) by mouth at bedtime. 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 No results found for: PTWT , PTHT Results from last 7 days Lab Units 12/05/24 0540 12/04/24 0704 12/04/24 0016 SODIUM mmol/L 138 139 141 POTASSIUM mmol/L 3.9 3.3* 4.0 CHLORIDE mmol/L 102 102 104 CO2 mmol/L 31 29 31 BUN mg/dL 13 20 20 CREATININE mg/dL 0.89 0.90 0.89 GLUCOSE mg/dL 109* 110* 116* CALCIUM mg/dL 9.0 8.7 8.6 Results from last 7 days Lab Units 12/05/24 0540 12/04/24 0528 12/04/24 0016 WBC AUTO K/mcL 5.5 4.6* 4.6* HEMOGLOBIN g/dL 12.6* 11.9* 12.3* HEMATOCRIT % 40.0* 36.7* 38.8* PLATELETS K/mcL 248 234 247 Recent Results (from the past week) Respiratory virus panel molecular study Collection Time: 12/04/24 12:54 AM Specimen: Nares; Swab Result Value Ref Range Adenovirus Detection by PCR Not Detected Not Detected Influenza A PCR Not Detected Not Detected Influenza B PCR Not Detected Not Detected Coronavirus 229E Not Detected Not Detected Coronavirus HKU1 Not Detected Not Detected Coronavirus OC43 Not Detected Not Detected Coronavirus NL63 Not Detected Not Detected Parainfluenza Virus 1 Not Detected Not Detected Parainfluenza Virus 2 Not Detected Not Detected Parainfluenza Virus 3 Not Detected Not Detected Parainfluenza Virus 4 Not Detected Not Detected RSV PCR Not Detected Not Detected Human Metapneumovirus A and B Not Detected Not Detected Rhinovirus/Enterovirus Not Detected Not Detected Bordetella pertussis Not Detected Not Detected Bordetella parapertussis Not Detected Not Detected Mycoplasma pneumo by PCR Not Detected Not Detected Chlamydia pneumoniae Not Detected Not Detected SARS COV-[address] Not Detected CT Angio Chest wo and/or w Contrast Final Result No pulmonary emboli. No active pulmonary disease. Moderate to large hiatal hernia, unchanged. No evidence of obstruction. No significant change from the prior study. -------- FINAL REPORT -------- Dictated By: Oswaldo Kahn Dictated Date: 12/05/2024 11:18 ET Assigned Physician: Oswaldo Kahn Reviewed and Electronically Signed By: Oswaldo Kahn Signed Date: 12/05/2024 11:23 ET Workstation ID: [id number] Transcribed By: Self Edit Transcribed Date: 12/05/2024 11:18 ET Transthoracic echocardiogram (TTE) complete with PRN contrast, bubble, strain, and 3D order panel Final Result XR Chest 2 Views Final Result Impression: 1. Stable mild cardiomegaly. 2. Large hiatal hernia. 3. Mild bibasilar subsegmental atelectasis. [place] ([id number]) -------- FINAL REPORT -------- Dictated By: Lovely Henderson Dictated Date: 12/04/2024 08:53 ET Assigned Physician: Lovely Henderson Reviewed and Electronically Signed By: Lovely Henderson Signed Date: 12/04/2024 08:55 ET Workstation ID: [id number] Transcribed By: Self Edit Transcribed Date: 12/04/2024 08:53 ET 12/03/24 TRANSTHORACIC ECHOCARDIOGRAM (TTE) COMPLETE (CONTRAST/BUBBLE/3D PRN) 12/04/2024 12/04/2024 Interpretation Summary Left ventricle cavity size is normal. There is normal left ventricular wall thickness. There is normal left ventricular regional wall motion. Left ventricular systolic function is in the normal rangewith an ejection fraction of 55-60%. The right ventricle is moderately dilated. There is basal hypokinesis with apical hypokinesis-the so-called Cruz's sign -which can be seen with pulmonary embolism. Clinical correlation is advised however. There is mild to moderate aortic stenosis-see measurements below. There is evidence of borderline pulmonary hypertension. The ascending aorta, aortic root, and aortic arch are mildly dilated for age and body surface area as detailed below. No recent priors for comparison. Signed by: Jesika Carty on 12/04/2024 3:20 PM Total time spent 45 minutes doing chart review, seeing patient performing physical exam, formulating plan, coordinating with RN, ICC for discharge, and documentation * Jessi Garner MD - 12/05/2024 2:37 PM EDT Cardiac diet - Sodium and Fluid restriction 1800cc/day * Jessi Garner MD - 12/05/2024 2:35 PM EDT As tolerated documented in this encounter Discharge Instructions * Discharge Instructions* Jessi Garner MD - 12/05/2024 2:38 PM EDT Check blood work for kidney functions in 4 days Follow-up with your primary care physician in a week please make sure to make this appointment Check weights daily and if more than 5 pounds weight increase in 3 days., Take an additional dose of Lasix 20 mg and call your doctor, medications may need to be readjusted Hold spironolactone for the next 4 days and then resume * Attachments The following attachments cannot be sent through Care Everywhere. * Heart Failure: Restricting Fluids: General Info (Cambodian) * Heart Failure: Limiting Sodium (Cambodian) documented in this encounter Medications at Time of Discharge aspirin 81 mg EC tablet Take 1 tablet (81 mg total) by mouth 1 (one) time each day. atorvastatin (LIPITOR) 40 mg tablet Take 1 tablet (40 mg total) by mouth 1 (one) time each day. 11/24/2024 clopidogreL (PLAVIX) 75 mg tablet Take 1 tablet (75 mg total) by mouth 1 (one) time each day. 11/24/2024 finasteride (PROSCAR) 5 mg tablet Take 1 tablet (5 mg total) by mouth 1 (one) time each day. 10/09/2024 furosemide (LASIX) 20 mg tablet Take 60mg daily in am and 40mg in evening 90 each 12/05/2024 metoprolol tartrate (LOPRESSOR) 25 mg tablet Take 1 tablet (25 mg total) by mouth 2 (two) times a day. 60 each 12/01/2024 12/31/2024 omeprazole (PriLOSEC) [address] capsule Take 1 capsule (20 mg total) by mouth 1 (one) time each day. 11/24/2024 oxyBUTYnin XL (DITROPAN-XL) 10 mg 24 hr tablet Take 1 tablet (10 mg total) by mouth 1 (one) time each day. 11/28/2024 spironolactone (ALDACTONE) 25 mg tablet Take 1 tablet (25 mg total) by mouth 1 (one) time each day. 30 each 12/01/2024 12/31/2024 tamsulosin (FLOMAX) 0.4 mg 24 hr capsule Take 1 capsule (0.4 mg total) by mouth at bedtime. 10/29/2024 documented as of this encounter Ordered Prescriptions Prescription Sig Dispense Quantity Refills Last Filled Start Date End Date furosemide (LASIX) 20 mg tablet Take 60mg daily in am and 40mg in evening 90 each 12/05/2024 documented in this encounter Discharge Disposition Disposition Code Departure Means Destination Comment s Home-Health Care [facility] documented in this encounter Progress Notes * Halina Guajardo RN - 12/05/2024 11:34 AM EDT 12/05/24 1134 Initial Transition Plan Initial [facility] Informed Choice Informed Choice Given? Yes Transportation Transportation at discharge Family READMISSION r/t leaving AMA before CHF TX completed. ALBARO: 12/06 Pt indicating he wants to leave today because he has a bladder cancer follow up appt tomorrow. Barriers: hypoxia, 2L NC, IV Lasix, IV mag, ? Medication compliance w/ 'a ton' of salt in his diet Dispo: [facility], per Pt and family agreement. Pt cleared for [facility] home w family. * Jessi Garner MD - 12/05/2024 8:05 AM EDT [facility] Provider Response Note PATIENT: JOAQUIN GOLDBERG : 1935 ADMIT DATE: 12/04/2024 3:58 AM DISCH DATE: RESPONDING PROVIDER #: [id number] PROVIDER RESPONSE TEXT: Donot know yet QUERY TEXT: Congestive Heart Failure is documented in the medical record. Please document the type and acuity, such as: ED Triage Notes 12/04/2024 (1) Admitted on 11/29 for new onset CHF and left AMA on 12/01. H&P 12/04/2024 Acute respirator failure with hypoxia CHF exacerbation Volume overload - IV Lasix 40 mg twice daily - Fluid restriction: 1500cc - Daily weights - I&Os - Monitor on telemetry - Echocardiogram - AM labs Progress Notes 12/04/2024 Acute hypoxic respiratory failure Secondary volume overload, CHF unknown EF. Switched to IV Lasix 40 mg twice daily for diuresis, await echocardiogram. Chest x-ray does not show any evidence of acute infiltrates or any significant volume overload. Troponin within normal limits. Continue daily weights, fluid restriction BNP (pcg/mL) 39 ECHOCARDIOGRAM Systolic function is normal Ejection fraction of 55-60% Please refer to complete ECHO Report Contact: The patient's clinical indicators include: Options provided: -- Systolic, Please indicate if it is acute, chronic, acute on chronic as well as the underlying cause of the CHF in the box. -- Diastolic, Please indicate if it is acute, chronic, acute on chronic as well as the underlying cause of the CHF in the box. -- Combined systolic and diastolic, Please indicate if it is acute, chronic, acute on chronic as well as the underlying cause of the CHF in the box. -- Other - I will add my own diagnosis -- Disagree - Not applicable / Not valid Query created by: Mckenzie Hopson on 12/04/2024 4:33 PM Electronically signed by: JESSI GARNER MD 12/05/2024 8:04 AM * Khushi Sewell RN - 12/04/2024 5:38 PM EDT Problem: Cognitive: Shanita Sanchez Fall Risk Goal: Last Known Fall Outcome: Progressing Goal: Mobility requiring assistance of person or device Outcome: Progressing Goal: Dizziness Outcome: Progressing Goal: Medications Outcome: Progressing Goal: Mental Status/LOC/Awareness Outcome: Progressing Goal: Toileting Needs Outcome: Progressing Goal: Volume and Electrolyte Status Outcome: Progressing Goal: Communication/Sensory Outcome: Progressing Goal: Behavior Outcome: Progressing Goals: Clinical Goals for the Shift: feel better Identify possible barriers to meeting goals/advancing plan of care: Stability of the patient: Moderately Stable - Low risk of patient condition declining or worsening End of Shift Summary: * Halina Guajardo RN - 12/04/2024 2:50 PM EDT 12/04/24 1400 Patient Interview Do you remember reviewing the discharge instructions the last time you were here? No How confident were you to use those instructions at home? Not confident Did you feel well when you left the hospital? No Did someone talk to you about who to contact (and how) if you were starting to feel worse? Yes Were you educated about your condition prior to leaving the hospital last time? Yes If you have symptoms, do you know what to do to make yourself feel better? Yes Do you know what makes you feel worse? Yes Are you having any problems taking your medications? Unsure Do you ever have a problem with: Other ( takes care of them) When was the last time you saw your Primary Care Provider? Has one, last seen (Comment) (12/02/2024) Did you have a follow up appointment scheduled prior to discharge? Yes How long after discharge was the appointment scheduled for? 7-14 days Were you able to go to this appointment? Yes Does anyone regularly help you manage your condition (medications, appointments, diet, etc)? Yes Do you have someone that can help care for you when you need it (ie family, friend, VNA, PCP)? Yes Readmission Reason Pt/Caregiver 2B: Pt/Caregiver - Refusal of services Root Cause Analysis Medical Reason for Readmission shortness of breath Patient Reason for Readmission can't breathe Days between readmission 5 What brought the patient back to the hospital? Medical Medical Reasons Acute SOB Was the Admission Planned? 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 Yes Transportation Transportation at discharge Family ICC met w/ Pt and family at bedside, confirmed demographics ALBARO: 12/06 Barriers: hypoxia, 2L NC, IV Lasix, IV mag, ? Medication compliance w/ 'a ton' of salt in his diet Dispo: VNA referral initiated, no HCP on file - at home in safe. * Jessi Garner MD - 12/04/2024 1:56 PM EDT Images from the original note were not included. SUMAN PROGRESS NOTE Date: 12/04/2024 Author: Jessi Garner MD Patient ID: Joaquin Goldberg is a 89 y.o. male : 1935 MR#: [id number] SUBJECTIVE Patient seen and examined. Sitting up in chair at the time of my visit, spouse present at the bedside. States that patient does poorly when he stays overnight in the hospital. Becomes more confused. Currently complains of some shoulder pain. Denies any difficulty breathing sitting. Legs are still swollen. Current Medications: aspirin, 81 mg, oral, Daily atorvastatin, 40 mg, oral, Daily clopidogreL, 75 mg, oral, Daily finasteride, 5 mg, oral, Daily furosemide, 40 mg, intravenous, BID 05-28 oxyBUTYnin XL, 10 mg, oral, Daily pantoprazole, 40 mg, oral, q AM AC tamsulosin, 0.4 mg, oral, Nightly PRN medications: acetaminophen, bisacodyL, ondansetron (ZOFRAN-ODT) disintegrating tablet OR ondansetron OBJECTIVE Vitals: 12/04/24 0328 12/04/24 0500 12/04/24 0749 12/04/24 1056 BP: 126/59 (!) 144/74 130/63 127/80 BP Location: Left arm;Upper Right arm Right arm Right arm Patient Position: Sitting Lying Lying Pulse: 69 80 76 84 Resp: Temp: 36.5 ??C (97.7 ??F) 36.5 ??C (97.7 ??F) 36.1 ??C (97 ??F) 36.2 ??C (97.1 ??F) TempSrc: Oral Oral Temporal Temporal SpO2: 96% 98% 96% 93% Weight: 109 kg (240 lb 14.4 oz) Height: Physical Exam Elderly obese male not in any acute distress HEENT PERRLA, EOMI Neck supple Chest no accessory muscle use, clear to auscultation Heart S1-S2 regular Abdomen soft nontender extremities bilateral lower extremity edema noted 3+. 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 Results from last 7 days Lab Units 12/04/24 0704 SODIUM mmol/L 139 POTASSIUM mmol/L 3.3* CHLORIDE mmol/L 102 CO2 mmol/L 29 BUN mg/dL 20 CREATININE mg/dL 0.90 GLUCOSE mg/dL 110* CALCIUM mg/dL 8.7 Results from last 7 days Lab Units 12/04/24 0528 WBC AUTO K/mcL 4.6* HEMOGLOBIN g/dL 11.9* HEMATOCRIT % 36.7* PLATELETS K/mcL 234 Recent Results (from the past week) Respiratory virus panel molecular study Collection Time: 12/04/24 12:54 AM Specimen: Nares; Swab Result Value Ref Range Adenovirus Detection by PCR Not Detected Not Detected Influenza A PCR Not Detected Not Detected Influenza B PCR Not Detected Not Detected Coronavirus 229E Not Detected Not Detected Coronavirus HKU1 Not Detected Not Detected Coronavirus OC43 Not Detected Not Detected Coronavirus NL63 Not Detected Not Detected Parainfluenza Virus 1 Not Detected Not Detected Parainfluenza Virus 2 Not Detected Not Detected Parainfluenza Virus 3 Not Detected Not Detected Parainfluenza Virus 4 Not Detected Not Detected RSV PCR Not Detected Not Detected Human Metapneumovirus A and B Not Detected Not Detected Rhinovirus/Enterovirus Not Detected Not Detected Bordetella pertussis Not Detected Not Detected Bordetella parapertussis Not Detected Not Detected Mycoplasma pneumo by PCR Not Detected Not Detected Chlamydia pneumoniae Not Detected Not Detected SARS COV-2 Not Detected Not Detected Imaging: XR Chest 2 Views Narrative: History: Chest pain. Comparison: 11/29/24, 02/29/24, thoracic CTA 11/29/24 Findings: PA and lateral views. Mild enlargement of the cardiac silhouette is unchanged. Atherosclerotic calcification of the aorta is noted. Soft tissue fullness at the base of the thorax in the midline is consistent with a large hiatal hernia, with CT correlation. Hilar contours and pulmonary vascularity are within normal limits. Mild bandlike opacity at the lung bases suggests subsegmental atelectasis and is without significant change from the previous studies. The costophrenic angles are sharp. Cholecystectomy clips are noted. A compression fracture at the thoracolumbar junction is without significant change. Impression: Impression: 1. Stable mild cardiomegaly. 2. Large hiatal hernia. 3. Mild bibasilar subsegmental atelectasis. [place] ([id number]) -------- FINAL REPORT -------- Dictated By: Lovely Henderson Dictated Date: 12/04/2024 08:53 ET Assigned Physician: Lovely Henderson Reviewed and Electronically Signed By: Lovely Henderson Signed Date: 12/04/2024 08:55 ET Workstation ID: [id number] Transcribed By: Self Edit Transcribed Date: 12/04/2024 08:53 ET ASSESSMENT & PLAN This is an 89-year-old obese male with history of hypertension, hyperlipidemia, CVA, bladder cancer, BPH, likely CHF, presenting to the emergency room with complaints of increasing shortness of breath, weight gain and lower extremity edema. Patient was recently admitted from 11/29/2024 to 12/01/2024 for volume overload, CHF at which time he was diuresed and discharged home as he became confused overnight and refused further hospitalization with plan to do outpatient echocardiogram. Was noted to be hypoxic in the ED. Acute hypoxic respiratory failure Secondary volume overload, CHF unknown EF. Switched to IV Lasix 40 mg twice daily for diuresis, await echocardiogram. Chest x-ray does not show any evidence of acute infiltrates or any significant volume overload. Troponin within normal limits. Continue daily weights, fluid restriction Hypomagnesemia has been repleted History of bladder cancer BPH followed by urology as outpatient. Continue oxybutynin, Flomax and finasteride.History of CVA on aspirin Plavix and statin Monitor for any episodes of confusion/agitations overnight. Will place on trazodone at bedtime for sleep. GERD on PPI CODE STATUS is full Discussed with patient and spouse present at the bedside regarding plan of care. Anticipate likely another 1 to 2 days of IV diuresis and then likely switch to oral diuretics on DC. 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 Smoking Status Never BSA 2.25 m?? Current Mental Status: A/O x [x]4, []3, []2, []1 Current Ambulation Status: independant IV Access: [x] Yes / [] No Field IV present: [] Yes / [x] No Hx of Violence: [] Yes / [x] No / [] Unknown Fall Risk:[x] Yes / [] No Yellow Bracelet Applied [x] Yes / [] No Yellow Socks Applied [] Yes / [x] No Patient Belongings inventoried and BL completed: [x] Yes / [] No Patient belongings stored in the security closet: [] Yes (If Yes please supply Security bag #): [x] No Patient Medications stored in Pharmacy: [] Yes (If Yes please supply Medication Security bag #): [x] No ED Summary of Care: Sob/BLE edema. Admitted on 11/29 for new onset CHF, left AMA on 12/01 due to disorientation/agitation. States has been feeling more sob. +2-3 pitting edema BLE. Room air sat 88-91- placed on 2L nc. 40 lasix given. Ambulates to bathroom- refuses/unable to use urinal to obtain accurate output. Submitted by and Phone Extension: * Katie Camargo RN - 12/04/2024 12:08 AM EDT Coming from home with c/o sob. Admitted on 11/29 for new onset CHF and left AMA on 12/01. and daughter stste that he became confused and disoriented and was adamant he had to lev. Since dc, has gotten progressively more sob with increased BLE edema. +3 pitting edema BLE, LS dim in all ward, increased work of breathing noted, dyspnea at rest * HOMAR Gregorio - 12/03/2024 11:48 PM EDT Emergency Medicine Note Patient Name: Joaquin Goldberg Initial Evaluation: 12/03/2024 : 1935 Patient's PCP: Sarah Ponce NP Emergency Physician: HOMAR Gregorio History of Present Illness Chief Complaint: Chief Complaint Patient presents with Shortness of Breath SOB x 1 week, Admitted Fri for new onset CHF. Left AM on Monday. Increasing sob and BLE edema HPI: This is an 89-year-old male with a history of CVA, HTN, HLD, recurrent bladder cancer followedby Dr. Hopkins presenting for evaluation of cough and shortness of breath. He was recently hospitalized in this facility 11/29/2024 to 12/01/2024. Initially started on an IV Lasix drip, however then removed his own IV line and refused any further IV or IV medication. He was supposed to have an echocardiogram, however refused to stay in the hospital to get that done. He was ultimately discharged on oral Lasix, spironolactone and metoprolol. Patient believes he has been taking these medications, but reports that he takes what his gives him. ROS: I have performed a ROS with the pertinent positives and negatives documented in the history ofpresent illness. Previous History Past Medical History: Diagnosis Date BPH (benign prostatic hyperplasia) BPH (benign prostatic hyperplasia) CHF (congestive heart failure) ([facility]) CVA (cerebral vascular accident) ([facility]) H/O arthroscopy of knee History of cholecystectomy HLD (hyperlipidemia) HLD (hyperlipidemia) Hypertension Past Surgical History: Procedure Laterality Date CHOLECYSTECTOMY SPINE SURGERY Social History Tobacco Use Smoking status: Never Smokeless tobacco: Never Substance Use Topics Alcohol use: Yes Comment: 2 drinks per day - vodka with orange juice Family History Problem Relation Name Age of Onset Stroke Brother has No Known Allergies. No current facility-administered medications on file prior to encounter. Current Outpatient Medications on File Prior to Encounter Medication Sig Dispense Refill aspirin 81 mg EC tablet Take 1 tablet (81 mg total) by mouth 1 (one) time each day. atorvastatin (LIPITOR) 40 mg tablet Take 1 tablet (40 mg total) by mouth 1 (one) time each day. clopidogreL (PLAVIX) 75 mg tablet Take 1 tablet (75 mg total) by mouth 1 (one) time each day. finasteride (PROSCAR) 5 mg tablet Take 1 tablet (5 mg total) by mouth 1 (one) time each day. furosemide (LASIX) 20 mg tablet Take 1 tablet (20 mg total) by mouth 2 (two) times daily morning and afternoon. 60 each 0 metoprolol tartrate (LOPRESSOR) 25 mg tablet Take 1 tablet (25 mg total) by mouth 2 (two) times a day. 60 each 0 omeprazole (PriLOSEC) [address] capsule Take 1 capsule (20 mg total) by mouth 1 (one) time each day. oxyBUTYnin XL (DITROPAN-XL) 10 mg 24 hr tablet Take 1 tablet (10 mg total) by mouth 1 (one) time each day. spironolactone (ALDACTONE) 25 mg tablet Take 1 tablet (25 mg total) by mouth 1 (one) time each day.30 each 0 tamsulosin (FLOMAX) 0.4 mg 24 hr capsule Take 1 capsule (0.4 mg total) by mouth at bedtime. [DISCONTINUED] amLODIPine (NORVASC) 5 mg tablet Take 1 tablet (5 mg total) by mouth 1 (one) time each day. [DISCONTINUED] hydroCHLOROthiazide (HYDRODIURIL) 25 mg tablet Take 1 tablet (25 mg total) by mouth 1 (one) time each day. Physical Exam ED Triage Vitals [12/04/24 0008] Temp Heart Rate Resp BP 36.8 ??C (98.3 ??F) 74 23 (!) 127/100 SpO2 Temp Source Heart Rate Source Patient Position 95 % Oral Monitor Sitting BP Location FiO2 (%) Left arm;Upper -- General: Well-appearing, well nourished, in no acute distress HEENT: PERRL, EOMI, external ears and nose appear unremarkable, airway is patent Neck: Supple, full range of motion Chest: Lung sounds slightly diminished, but otherwise clear Circulatory: RRR, extremities well perfused, bilateral lower extremity pitting edema Abdomen: Non-distended, Non-Tender Extremities: Normal ROM, No edema Skin: Warm and dry Neuro: Alert and oriented, no focal deficits Results Labs Reviewed COMPREHENSIVE METABOLIC PANEL - Abnormal Result Value Sodium 141 Potassium 4.0 Chloride 104 CO2 31 Anion Gap 6 Glucose 116 (*) BUN 20 Creatinine 0.89 eGFR 82 BUN/Creatinine Ratio 22.5 Calcium 8.6 AST (SGOT) 82 (*) ALT (SGPT) 90 (*) Alkaline Phosphatase 75 Total Protein 6.2 Albumin 3.3 Total Bilirubin 0.5 MAGNESIUM - Abnormal Magnesium 1.7 (*) CBC WITH AUTO DIFFERENTIAL - Abnormal WBC 4.6 (*) RBC 4.40 (*) Hemoglobin 12.3 (*) Hematocrit 38.8 (*) MCV 89.2 MCH 28.3 MCHC 31.7 (*) RDW 15.0 Platelets 247 MPV 9.9 NRBC 0.0 NRBC Absolute 0.00 Neutrophils Relative 50.6 Lymphocytes Relative 26.1 Monocytes Relative 18.2 Eosinophils Relative 3.5 Basophils Relative 0.9 Immature Granulocytes Relative 0.7 Neutrophils Absolute 2.31 Lymphocytes Absolute 1.19 Monocytes Absolute 0.83 Eosinophils Absolute 0.16 Basophils Absolute 0.04 Immature Granulocytes Absolute 0.03 URINALYSIS WITH REFLEX MICROSCOPIC AND CULTURE - Abnormal Specific Wrights Urine 1.024 pH, Urine 5.5 Leukocytes, Urine Negative Nitrite, Urine Negative Protein, Urine Negative Glucose, Urine Negative Ketones, Urine Trace (*) Urobilinogen, Urine 0.2 Bilirubin, Urine Negative Blood, Urine Negative RESPIRATORY VIRUS PANEL MOLECULAR STUDY - Normal Adenovirus Detection by PCR Not Detected Influenza A PCR Not Detected Influenza B PCR Not Detected Coronavirus 229E Not Detected Coronavirus HKU1 Not Detected Coronavirus OC43 Not Detected Coronavirus NL63 Not Detected Parainfluenza Virus 1 Not Detected Parainfluenza Virus 2 Not Detected Parainfluenza Virus 3 Not Detected Parainfluenza Virus 4 Not Detected RSV PCR Not Detected Human Metapneumovirus A and B Not Detected Rhinovirus/Enterovirus Not Detected Bordetella pertussis Not Detected Bordetella parapertussis Not Detected Mycoplasma pneumo by PCR Not Detected Chlamydia pneumoniae Not Detected SARS COV-2 Not Detected Narrative: Testing was performed using the [employer] Respiratory Pathogen PCR Assay. All results must be correlated with the clinical findings. Results should not be used as the sole basis for diagnosis. False Negative results may occur from the presence of sequence variants in the region targeted by the assay or the presence of inhibitors. Results may be affected by concurrent antiviral/antimicrobial therapy or levels of organisms that are below the limit of detection. TROPONIN I HIGH SENSITIVITY - Normal High Sensitivity Troponin I 7 Narrative: High levels of biotin in samples may falsely decrease hsTroponin values. Use caution when interpreting hsTroponin results in patients taking biotin who exhibit renal impairment (eGFR <60) or in patients taking more than 20 mg/day of biotin. TROPONIN I HIGH SENSITIVITY - Normal High Sensitivity Troponin I 8 Narrative: High levels of biotin in samples may falsely decrease hsTroponin values. Use caution when interpreting hsTroponin results in patients taking biotin who exhibit renal impairment (eGFR <60) or in patients taking more than 20 mg/day of biotin. LIPASE - Normal Lipase 24 B-TYPE NATRIURETIC PEPTIDE - Normal BNP 39 CBC AND DIFFERENTIAL Narrative: The following orders were created for panel order CBC and differential. Procedure Abnormality Status --------- ------ CBC auto differential[[id number]] Abnormal Final result Please view results for these tests on the individual orders. URINALYSIS WITH REFLEX MICROSCOPIC AND CULTURE Narrative: The following orders were created for panel order Urinalysis with reflex microscopic and culture. Procedure Abnormality Status --------- ------ Urinalysis with reflex ...[[id number]] Abnormal Final result Thomas urine culture tube[[id number]] In process Please view results for these tests on the individual orders. Abnormal Labs Reviewed COMPREHENSIVE METABOLIC PANEL - Abnormal; Notable for the following components: Result Value Glucose 116 (*) AST (SGOT) 82 (*) ALT (SGPT) 90 (*) All other components within normal limits MAGNESIUM - Abnormal; Notable for the following components: Magnesium 1.7 (*) All other components within normal limits CBC WITH AUTO DIFFERENTIAL - Abnormal; Notable for the following components: WBC 4.6 (*) RBC 4.40 (*) Hemoglobin 12.3 (*) Hematocrit 38.8 (*) MCHC 31.7 (*) All other components within normal limits URINALYSIS WITH REFLEX MICROSCOPIC AND CULTURE - Abnormal; Notable for the following components: Ketones, Urine Trace (*) All other components within normal limits XR Chest 2 Views (Results Pending) I have discussed the incidental/abnormal imaging and/or lab abnormalities with the patient and haveinstructed them the need for further evaluation and workup with their primary care doctor. I have provided the patient with a paper copy of the abnormality. The laboratory results, imaging results and other diagnostic exam results were reviewed in the EMR. EKG Interpretation Critical Care Time None ? Medical Decision Making Medications magnesium sulfate 2 gram/50 mL (4 %) IVPB 2 g (2 g intravenous New Bag 12/04/24226) furosemide (LASIX) injection 40 mg (40 mg intravenous Given 12/04/24225) acetaminophen (TYLENOL) tablet 650 mg (650 mg oral Given 12/04/24326) 12/04/24 1:02 AM patient seen and evaluated, vitals reviewed, blood pressure is elevated though patient has been persistently coughing, he is afebrile not tachycardic or hypoxic. He does appear to getquite dyspneic with minimal exertion on the stretcher. Lung sounds are slightly diminished, but otherwise clear. He does have bilateral lower extremity pitting edema. Unclear whether or not he has been taking his Lasix and spironolactone as prescribed during recent hospitalization. Broad medical workup to be initiated. Differential to include viral syndrome, URI, bronchitis, pneumonia, CHF exacerbation. Ambulatory pulse ox. Continuous cardiac and pulse oximetry monitoring. ED Course as of 12/04/24342Dec 04, 2024 034 Labs reviewed and reassuring, stable for his baseline, magnesium slightly low to 1.7 will be repleted. His viral panel is negative. Troponins within normal limits, there is no delta BNP of 39 which is minimally elevated from his recent hospitalization. He did have an episode of hypoxia sittingupright on the stretcher while he was awake. He responded to 2 L nasal cannula. He was given a doseof IV Lasix. He is agreeable to hospitalization, family is hopeful that he was able to get the echothat he was supposed to get. Will discuss with hospital medicine. [LQ] ED Course User Index [LQ] HOMAR Gregorio Clinical Impressions as of 12/04/24342 Shortness of breath Acute hypoxic respiratory failure (CMS/HCC) Bilateral lower extremity edema Procedures Procedures Diagnosis 1. Shortness of breath 2. Acute hypoxic respiratory failure (CMS/HCC) 3. Bilateral lower extremity edema Disposition Admit to Inpatient ED Prescriptions None Physician Attestation HOMAR Gregorio 12/04/24 011 HOMAR rGegorio 12/04/24342 Cosigned by Amaury Gallagher MD at 12/05/2024 11:32 AM EDT Associated attestation - Amaury Gallagher MD - 12/05/2024 11:32 AM EDT I performed a history and physical examination and discussed the patient management with preceding Advanced Practice Provider. I agree with the history and physical assessment and plan of care, with the following exceptions: None Patient being admitted for acute hypoxic respiratory failure Amaury Gallagher MD documented in this encounter H&P Notes * HOMAR Graham - 12/04/2024 4:18 AM EDT Images from the original note were not included. [facility] HISTORY AND PHYSICAL Please contact author [HOMAR Linares] via [employer]. Patient: Joaquin Goldberg Admission Date/Time: 12/03/2024 11:52 PM : 1935 [89 y.o.] Patient's PCP: Sarah Ponce NP Attending Provider: No att. providers found CHIEF COMPLAINT: Shortness of breath, cough HPI: 89-year-old male with PMH of hypertension, hyperlipidemia, suspected heart failure, history of CVA,bladder cancer, BPH and obesity presents to the ED for shortness of breath, cough and lower extremity swelling Patient was recently admitted from 11/29 - 12/01 for volume overload with suspected underlying heart failure At that time patient had IV diuretics with improvement in edema, he became confused overnight and refused hospitalization, echocardiogram, IV access. Family agreed to have echocardiogram performed outpatient Patient was discharged on Lasix, spironolactone and metoprolol??? Amlodipine and hydralazine were discontinued Since his return back home patient states he has had ongoing cough and shortness of breath, not feeling great . He reports left greater than right lower extremity edema. Patient states his dry weight is around 223 pounds, he weighed himself this morning and was 241. He denies any chest pain, palpitations, lightheaded, dizziness Patient does report using a ton of salt in his diet. Patient states he was not able to get an appointment for an echocardiogram until January 2025 We discussed inpatient echocardiogram inpatient and he agreed Vitals: 126/59, pulse 69, respiratory 22, 96% on 2L, afebrile??? Patient was hypoxic 88% with ambulation on room air Labs: WBC 4.6, hemoglobin 12.3, hematocrit 38.8, creatinine 0.89. Magnesium 1.7. Troponin 7, 8, BNP39. Viral panel negative. UA: Negative In the ED patient received acetaminophen 650 mg p.o. x 1, IV Lasix 40 mg x 1, magnesium 2 g IV x 1 ROS Negative except noted in HPI ALLERGIES: NKDA HOME MEDICATIONS: Medication list from discharge summary on 11/29/2024: Furosemide 20 mg twice daily Metoprolol tartrate 25 mg twice daily Spironolactone 25 mg daily Aspirin 81 mg daily Atorvastatin 40 mg daily Plavix 75 mg daily Finasteride 5 mg daily Omeprazole 20 mg daily Oxybutynin 10 mg daily Tamsulosin 0.4 mg at bedtime Medications that were discontinued: Amlodipine 5 mg daily, hydrochlorothiazide 25 mg daily PAST MEDICAL HISTORY: Suspected heart failure, unknown type Hx CVA Bladder cancer Hypertension Hyperlipidemia BPH Alcohol use disorder SURGICAL HISTORY: Cholecystectomy Back surgery, details unknown SOCIAL HISTORY: Tobacco use - Denies Alcohol use - Denies Illicit drug use - Denies Mobility - Independent ADLs - Independent FAMILY HISTORY: Brother had a stroke PHYSICAL EXAM: GENERAL: 89-year-old male sitting upright on stretcher, NAD HEENT: Normocephalic. EOM intact. PERRL. Dry MM. CARDIAC: Irregular rhythm, rate controlled in the 80s on telemetry.. No murmur, rubs, gallops. 2-3+pitting lower extremity edema PULMONARY: Lungs clear bilaterally, no significant wheeze, rales. Nasal cannula in place. Slight increased work of breathing with speaking but in no acute distress MSK: Limited mobility to bilateral lower extremities due to significant edema. Moves all other extremities NEURO: Initially a bit confused with conversation but then became clear. Alert, oriented to place, situation and medical history. Calm/pleasant mood SKIN: Appears clean dry and intact. RESULTS/IMAGING: ASSESSMENT AND PLAN: 89-year-old male with PMH of HTN, HLD, suspected CHF, Hx CVA, bladder cancer, BPH and obesity presents to the ED for SOB, cough and lower extremity edema Recently admitted from 11/29 - 12/01 for volume overload with suspected underlying heart failure Refused echocardiogram at the time Reported dry weight: 223 lb. Most recent 251 lb Unclear medication compliance and he reports using a ton of salt in his diet. Hypoxic with ambulation in the ED 88% and placed on 2L satting 97%. Labs stable. Acute respirator failure with hypoxia CHF exacerbation Volume overload - IV Lasix 40 mg twice daily - Fluid restriction: 1500cc - Daily weights - I&Os - Monitor on telemetry - Echocardiogram - AM labs Hypomagnesemia Magnesium 1.7 on admission, replaced, trend w/ routine labs Bladder cancer Follows w/ Urology - Dr. Hopkins - Oxybutynin 10 mg daily - Tamsulosin 0.4 mg at bedtime - Finasteride 5 mg daily Hx CVA - Continue aspirin, plavix, statin GERD - Omeprazole 20 mg daily Possible sleep apnea - Per last admission patient refused many times. FULL CODE HCP: Lucita, daughter [phone]. Yoli, spouse [phone] PPX: Pneumoboots Case and plan discussed with: Dr. Little Cosigned by Quincy Little MD at 12/06/2024 2:58 AM EDT Associated attestation - Quincy Little MD - 12/06/2024 2:58 AM EDT This is a split/shared visit with HOMAR Graham. I personally performed the medical decision making (MDM) for the care of this patient on 12/04/2024 as documented below 89-year-old man with multiple medical problem including hypertension; hyperlipidemia; remote CVA and BPH is being hospitalized for shortness of breath and cough significant for hypoxemia and workup for acute on chronic hypoxemic respiratory failure. We reviewed interest in judicious IV diuresis forthe concerns of acute on chronic heart failure alongside hypertension and daily weight, fluid and electrolyte balances; as well as in interval echo. 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 failure (CMS/HCC) 1 Occurrences starting 12/05/2024 until 12/05/2025 documented as of this encounter Procedures Procedure Name Priority Date/Time Associated Diagnosis Comments ECG OUTSIDE 12/06/2024 ECG ANNOTATED 12/06/2024 CT ANGIO CHEST WO AND/OR W CONTRAST STAT 12/05/2024 10:24 AM EDT Acute hypoxic respiratory failure (CMS/HCC) CBC WITH AUTO DIFFERENTIAL Routine 12/05/2024 5:40 AM EDT CBC AND DIFFERENTIAL Routine 12/05/2024 5:40 AM EDT BASIC METABOLIC PANEL Routine 12/05/2024 5:40 AM EDT TRANSTHORACIC ECHOCARDIOGRAM (TTE) COMPLETE W/ CONTRAST Routine 12/04/2024 1:17 PM EDT Shortness of breath Acute hypoxic respiratory failure (CMS/HCC) EXTRA TUBES Routine 12/04/2024 7:04 AM EDT LAVENDER - EDTA Routine 12/04/2024 7:04 AM EDT BASIC METABOLIC PANEL Routine 12/04/2024 7:04 AM EDT CBC WITH AUTO DIFFERENTIAL Routine 12/04/2024 5:28 AM EDT CBC AND DIFFERENTIAL Routine 12/04/2024 5:28 AM EDT MAGNESIUM Routine 12/04/2024 5:28 AM EDT URINALYSIS WITH REFLEX MICROSCOPIC AND CULTURE STAT 12/04/2024 2:14 AM EDT THOMAS URINE CULTURE TUBE STAT 12/04/2024 2:14 AM EDT URINALYSIS WITH REFLEX MICROSCOPIC AND CULTURE STAT 12/04/2024 2:14 AM EDT XR CHEST 2 VIEWS STAT 12/04/2024 2:04 AM EDT TROPONIN I HIGH SENSITIVITY STAT 12/04/2024 1:53 AM EDT RESPIRATORY VIRUS PANEL MOLECULAR STUDY STAT 12/04/2024 12:54 AM EDT TROPONIN I HIGH SENSITIVITY STAT 12/04/2024 12:16 AM EDT CBC WITH AUTO DIFFERENTIAL STAT 12/04/2024 12:16 AM EDT CBC AND DIFFERENTIAL STAT 12/04/2024 12:16 AM EDT B-TYPE NATRIURETIC PEPTIDE STAT 12/04/2024 12:16 AM EDT MAGNESIUM STAT 12/04/2024 12:16 AM EDT LIPASE STAT 12/04/2024 12:16 AM EDT COMPREHENSIVE METABOLIC PANEL STAT 12/04/2024 12:16 AM EDT documented in this encounter Results * ECG-Annotated (12/06/2024) us Provider Onbase MD ECG ORDERABLES Final Result * ECG-Outside (12/06/2024) us Provider Onbase MD ECG ORDERABLES Final Result * CT Angio Chest wo and/or w Contrast (12/05/2024 10:24 AM EDT) Anatomical Region Laterality Modality Body Computed Tomogra phy 12/05/2024 11:1 8 AM EDT Impressions 12/05/2024 11:23 AM EDT No pulmonary emboli. No active pulmonary disease. Moderate to large hiatal hernia, unchanged. No evidence of obstruction. No significant change from the prior study. -------- FINAL REPORT -------- Dictated By: Oswaldo Kahn Dictated Date: 12/05/2024 11:18 ET Assigned Physician: Oswaldo Kahn Reviewed and Electronically Signed By: Oswaldo Kahn Signed Date: 12/05/2024 11:23 ET Workstation ID: [id number] Transcribed By: Self Edit Transcribed Date: 12/05/2024 11:18 ET Narrative 12/05/2024 11:23 AM EDT INDICATION: Chest pain and shortness of breath Technique: CTA performed of the chest using pulmonary angiographic protocol with a total of 90 mL of Isovue-370 intravenously without incident. 3D multiplanar reconstructions performed on a computer workstation. Scanner: [employer] 64 slice VCT Dose reduction technique: ASIR (Adaptive statistical iterative reconstruction) and/or AEC (automated exposure control) Dose: total exam DLP 726 mGY per cm Comparison: November 29, 2024 FINDINGS: Pulmonary artery: Main, right, left, lobar, segmental and subsegmental pulmonary arteries are well-opacified and normal in course and caliber. No pulmonary emboli. Thoracic aorta is suboptimally opacified but grossly normal in course and caliber and unchanged from the prior study. Trachea unremarkable. Esophagus within normal limits. Moderate to large size hiatal hernia, unchanged. The heart is normal in size and shape. No pericardial effusions. There is no evidence of lymphadenopathy. Lung wrad are clear. There are no infiltrates, effusions, nodules or masses. Mild dependent atelectatic changes. Bony structures demonstrate osteopenia and mild degenerative changes. Procedure Note Oswaldo Kahn MD - 12/05/2024 INDICATION: Chest pain and shortness of breath Technique: CTA performed of the chest using pulmonary angiographicprotocol with a total of 90 mL of Isovue-370 intravenously withoutincident. 3D multiplanar reconstructions performed on a computerworkstation. Scanner: [employer] 64 slice VCT Dose reduction technique: ASIR (Adaptive statistical iterativereconstruction) and/or AEC (automated exposure control) Dose: total exam DLP 726 mGY per cm Comparison: November 29, 2024 FINDINGS: Pulmonary artery: Main, right, left, lobar, segmental and subsegmentalpulmonary arteries are well-opacified and normal in course and caliber. Nopulmonary emboli. Thoracic aorta is suboptimally opacified but grossly normal in course andcaliber and unchanged from the prior study. Trachea unremarkable. Esophagus within normal limits. Moderate to largesize hiatal hernia, unchanged. The heart is normal in size and shape. Nopericardial effusions. There is no evidence of lymphadenopathy. Lung ward are clear. There are no infiltrates, effusions, nodules ormasses. Mild dependent atelectatic changes. Bony structures demonstrate osteopenia and mild degenerative changes. IMPRESSION: No pulmonary emboli. No active pulmonary disease. Moderate to large hiatal hernia, unchanged. No evidence of obstruction. No significant change from the prior study. -------- FINAL REPORT -------- Dictated By: Oswaldo Kahn Dictated Date: 12/05/2024 11:18 ET Assigned Physician: Oswaldo Kahn Reviewed and Electronically Signed By: Oswaldo Kanh Signed Date: 12/05/2024 11:23 ET Workstation ID: [id number] Transcribed By: Self Edit Transcribed Date: 12/05/2024 11:18 ET Jessi Garner MD [facility] CT PROCEDURES Final Res ult * (ABNORMAL) CBC auto differential (12/05/2024 5:40 AM EDT) WBC 5.5 4.8 - 10.8 K/mcL LAB HEMETOLOGY METHOD 12/05/2024 6:31 AM EDT [facility] RBC 4.50 4.50 - 5.50 M/mcL LAB HEMETOLOGY METHOD 12/05/2024 6:31 AM EDT [facility] Hemoglobin 12.6(L) 13.5 - 17.5 g/dL LAB HEMETOLOGY METHOD 12/05/2024 6:[address] [facility] Hematocrit 40.0(L) 42.0 - 54.0 % LAB HEMETOLOGY METHOD 12/05/2024 6:[address] [facility] MCV 88.5 79.0 - 98.0 FL LAB HEMETOLOGY METHOD 12/05/2024 6:[address] [facility] MCH 27.9 27.0 - 32.0 pcg LAB HEMETOLOGY METHOD 12/05/2024 6:[address] [facility] MCHC 31.5(L) 32.0 - 37.0 g/dL LAB HEMETOLOGY METHOD 12/05/2024 6:[address] [facility] RDW 14.9 11.0 - 15.0 % LAB HEMETOLOGY METHOD 12/05/2024 6:[address] [facility] Platelets 248 130 - 400 K/mcL LAB HEMETOLOGY METHOD 12/05/2024 6:[address] [facility] MPV 10.3 7.0 - 11.0 FL LAB HEMETOLOGY METHOD 12/05/2024 6:[address] [facility] NRBC 0.0 <1.0 % LAB HEMETOLOGY METHOD 12/05/2024 6:[address] [facility] NRBC Absolute 0.00 <0.10 K/mcL LAB HEMETOLOGY METHOD 12/05/2024 6:[address] [facility] Neutrophils Relative 59.6 % LAB HEMETOLOGY METHOD 12/05/2024 6:[address] [facility] Lymphocytes Relative 19.9 % LAB HEMETOLOGY METHOD 12/05/2024 6:[address] [facility] Monocytes Relative 16.4 % LAB HEMETOLOGY METHOD 12/05/2024 6:31 AM EDT [facility] Eosinophils Relative 2.7 % LAB HEMETOLOGY METHOD 12/05/2024 6:31 AM EDT [facility] Basophils Relative 0.9 % LAB HEMETOLOGY METHOD 12/05/2024 6:[address] [facility] Immature Granulocytes Relative 0.5 % LAB HEMETOLOGY METHOD 12/05/2024 6:31 AM EDT [facility] Neutrophils Absolute 3.27 1.50 - 7.00 K/mcL LAB HEMETOLOGY METHOD 12/05/2024 6:31 AM EDT [facility] Lymphocytes Absolute 1.09 1.00 - 5.00 K/mcL LAB HEMETOLOGY METHOD [facility]24 [facility] Monocytes Absolute 0.90 0.20 - 1.00 K/mcL LAB HEMETOLOGY METHOD 12/05/2024 6:31 AM EDT [facility] Eosinophils Absolute 0.15 0.00 - 0.50 K/mcL LAB HEMETOLOGY METHOD 12/05/2024 6:31 AM T [facility] Basophils Absolute 0.05 0.00 - 0.20 K/mcL LAB HEMETOLOGY METHOD 12/05/2024 6:[address] [facility] Immature Granulocytes Absolute 0.03 0.00 - 0.03 K/mcL LAB HEMETOLOGY METHOD 12/05/2024 6:31 AM T [facility] Blood Venous blood specimen / Unknown Venipuncture / Unknown 12/05/2024 5:40 AM EDT 12/05/2024 6:17 AM EDT Jessi Garner MD LAB BLOOD ORDERABLES Final Result [facility] [address] [place] [address], * (ABNORMAL) Basic metabolic panel (12/05/2024 5:40 AM EDT) Sodium 138 133 - 145 mmol/L LAB CHEMISTRY METHOD 12/05/2024 6:[address] [facility] Potassium 3.9 3.5 - 5.5 mmol/L LAB CHEMISTRY METHOD 12/05/2024 6:[address] [facility] Chloride 102 96 - 110 mmol/L LAB CHEMISTRY METHOD 12/05/2024 6:[address] [facility] CO2 31 21 - 32 mmol/L LAB CHEMISTRY METHOD 12/05/2024 6:[address] [facility] Anion Gap 5 3 - 11 LAB CHEMISTRY METHOD 12/05/2024 6:[address] [facility] Glucose 109(H) 70 - 100 mg/dL LAB CHEMISTRY METHOD 12/05/2024 6:[address] [facility] BUN 13 5 - 25 mg/dL LAB CHEMISTRY METHOD 12/05/2024 6:[address] [facility] Creatinine 0.89 0.70 - 1.30 mg/dL LAB CHEMISTRY METHOD 12/05/2024 6:[address] [facility] eGFR 82 >=60 mL/min/1. 73m2 LAB CHEMISTRY METHOD 12/05/2024 6:[address] [facility] Comment:Calculation based on the??Chronic Kidney Disease Epidemiology Collaboration (CKD-EPI) equation refit??without adjustment for race. BUN/Creatinine Ratio 14.6 LAB CHEMISTRY METHOD 12/05/2024 6:[address] [facility] Calcium 9.0 8.5 - 10.5 mg/dL LAB CHEMISTRY METHOD 12/05/2024 6:[address] [facility] Blood Venous blood specimen / Unknown Venipuncture / Unknown 12/05/2024 5:40 AM EDT 12/05/2024 6:17 AM EDT us Jessi Garner MD LAB BLOOD ORDERABLES Final Result [place] ([facility]) [facility] [address] [facility] [place] [address], [place] [phone] * (ABNORMAL) TRANSTHORACIC ECHOCARDIOGRAM (TTE) COMPLETE W/ CONTRAST (12/04/2024 1:17 PM EDT) Left Atrium Minor [place] 5.9 cm CV PACS Left Atrium Major [place] 6.8 cm CV PACS LA Area Sys (A2C) 20 cm2 CV PACS LA Area Sys (A4C) 25 cm2 CV PACS LA Volume (BP) 66 mL CV PACS RA Area 21.8 cm2 CV PACS RA 2D Volume 69 mL CV PACS AV Mean Gradient 12 mmHg CV PACS Ao VTI 52.2 cm CV PACS AV Peak Raad 2.4 m/s CV PACS AV Peak Gradient 23 mmHg CV PACS AV Area Continuity Equation 1.4 cm2 CV PACS AV Area Peak Velocity 1.2 cm2 CV PACS Aortic Arch 3.0 cm CV PACS Ascending Aorta 3.9 cm CV PACS Aortic Sinus Valsalva 4.1 cm CV PACS IVSD 1.0 0.6 - 1.0 cm CV PACS LVIDD 4.0(A) 4.2 - 5.8 cm CV PACS LVIDS 2.8 2.5 - 4.0 cm CV PACS LVOT Diameter 2.3 cm CV PACS LVOT Mean Raad 0.5 m/s CV PACS LVOT Mean Grad 1 mmHg CV PACS LVOT Peak VTI 17.6 cm CV PACS LVOT Peak Raad 0.9 m/s CV PACS LVOT Peak Gradient 3 mmHg CV PACS LVPWD 1.0 0.6 - 1.0 cm CV PACS MV E' Tissue Velocity Lateral 9 cm/s CV PACS MV E' Tissue Velocity Septal 7 cm/s CV PACS LVOT Area 4.3 cm2 CV PACS LVOT Stroke Volume 75 mL CV PACS MV Deceleration [place] 3.1 m/s2 CV PACS E Wave Deceleration Time 263(A) 119 - 242 ms CV PACS MV PHT 76 ms CV PACS MV Peak A Raad 1.00 m/s CV PACS MV Peak E Raad 0.80 m/s CV PACS MV Area PHT 2.9 cm2 CV PACS PV Acceleration Time 50 ms CV PACS RV Diastolic Basal Dimension 4.6(A) 2.5 - 4.1 cm CV PACS RV S' 18 cm/s CV PACS TAPSE 26 mm CV PACS TR Peak Velocity 2.90 m/s CV PACS TR Peak Gradient 33 mmHg CV PACS E/E' Ratio Septal 11 CV PACS E/E' Ratio Averaged 10 CV PACS LVOT Stroke Index 0 mL/m2 CV PACS Relative Wall Thickness ratio 0.50(A) 0.24 - 0.42 CV PACS LVOT:AV VTI Index 0.34 CV PACS FS 30 % CV PACS LV Mass 2D 127 96 - 200 g CV PACS Ascending Aorta Index 1.76 cm/m2 CV PACS LVOT flow 208 mL/s CV PACS RA 2D Volume Index 31 18 - 32 mL/m2 CV PACS WILBERT Index (VTI) 0.63 cm2/m2 CV PACS WILBERT Index (Pk Raad) 0.54 cm2/m2 CV PACS LVIDD Index 1.81 cm/m2 CV PACS LVIDS Index 1.27 cm/m2 CV PACS AV Velocity Ratio 0.36 CV PACS E/A Ratio 0.8 0.8 - 2.0 CV PACS E/E' Ratio Lateral 9 CV PACS LA Volume Index (BP) 29 mL/m2 CV PACS LV Mass Index 2D 57 50 - 102 g/m2 CV PACS BSA 2.34 m2 CV PACS Right Ventricular Peak Systolic Pressure 37 mmHg CV PACS Est. RA Pressure 3 mmHg CV PACS RV Free Wall Peak S' 18 cm/s CV PACS RA Major [place] 5.7 cm CV PACS RA Major [place] Index 2.6 2.1 - 2.7 cm/m2 CV PACS AV Area 2D 1.5 cm2 CV PACS WILBERT Index (2D) 0.68 cm2/m2 CV PACS AV Area Index 0.7 CV PACS Anatomical Region Laterality Modality Ultrasound Narrative 12/04/2024 3:20 PM EDT ?Left ventricle cavity size is normal. ??There is normal left ventricular wall thickness. ??There is normal left ventricular regional wall motion. ?? Left ventricular systolic function is in the normal range with an ejection fraction of 55-60%. ?The right ventricle is moderately dilated. ??There is basal hypokinesis with apical hypokinesis-the so-called Cruz's sign -which can be seen with pulmonary embolism. ??Clinical correlation is advised however. ?There is mild to moderate aortic stenosis-see measurements below. 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 ?The ascending aorta, aortic root, and aortic arch are mildly dilated for age and body surface area as detailed below. ?No recent priors for comparison. Left Ventricle Left ventricle cavity size is normal. Wall thickness is upper normal. Systolic function is normal with an ejection fraction of 55-60%. Indeterminate diastolic function. Right Ventricle The right ventricle is moderately dilated and apical views. There appears to be a hypokinetic base with hyperdynamic apical segments? the so-called Cruz sign. This can be seen with acute pulmonary embolism. Clinical correlation advised. Systolic function is normal. Left Atrium Left atrium cavity size is normal. Right Atrium Right atrium cavity is normal. IVC/SVC RA pressures is estimated to be 3 mmHg (IVC diameter <21 mm and decreases >50% during inspiration). Mitral Valve The leaflets are mildly thickened. There is annular calcification. There is trace regurgitation. There is no evidence of mitral valve stenosis. Tricuspid Valve Tricuspid valve structure is normal. There is mild regurgitation. 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 The RVSP is estimated at 36 mmHg. Aortic Valve Number of aortic valve cusps cannot be determined but valve is likely trileaflet. Leaflets are thickened. [place] is mildly reduced. There is no regurgitation. There is mild to moderate stenosis. Pulmonic Valve Pulmonic valve structure is normal. There is trace pulmonic valve regurgitation. Ascending Aorta Aortic sinus 4.1 cm. Ascending aorta 3.9 cm. Aortic arch 3.0 cm. Pericardium Pericardium appears normal. There is no pericardial effusion. Study Details Overall the study quality was technically difficult. Definity contrast was given to enhance imaging. Audrey GRAF CV ECHO PROCEDURES Carolyn lakhani Result * Lavender tube (12/04/2024 7:04 AM EDT) [facility] Extra Tube Hold for add-ons. 12/04/2024 9:[address] [facility] Comment:Auto resulted. Blood Venous blood specimen / Unknown Venipuncture / Unknown 12/04/2024 7:04 AM EDT 12/04/2024 7:20 AM EDT Quincy Little MD LAB BLOOD ORDERABLES Carolyn lakhani Result [facility] [address] [place] [address], [place] [phone] * (ABNORMAL) Basic metabolic panel (12/04/2024 7:04 AM EDT) [facility] Sodium 139 133 - 145 mmol/L LAB CHEMISTRY METHOD 12/04/2024 7:[address] [facility] Potassium 3.3(L) 3.5 - 5.5 mmol/L LAB CHEMISTRY METHOD 12/04/2024 7:[address] [facility] Chloride 102 96 - 110 mmol/L LAB CHEMISTRY METHOD 12/04/2024 7:[address] [facility] CO2 29 21 - 32 mmol/L LAB CHEMISTRY METHOD 12/04/2024 7:[address] [facility] Anion Gap 8 3 - 11 LAB CHEMISTRY METHOD 12/04/2024 7:[address] [facility] Glucose 110(H) 70 - 100 mg/dL LAB CHEMISTRY METHOD 12/04/2024 7:[address] [facility] BUN 20 5 - 25 mg/dL LAB CHEMISTRY METHOD 12/04/2024 7:[address] [facility] Creatinine 0.90 0.70 - 1.30 mg/dL LAB CHEMISTRY METHOD 12/04/2024 7:[address] [facility] eGFR 82 >=60 mL/min/1. 73m2 LAB CHEMISTRY METHOD 12/04/2024 7:49 AM EDT [facility] Comment:Calculation based on the??Chronic Kidney Disease Epidemiology Collaboration (CKD-EPI) equation refit??without adjustment for race. BUN/Creatinine Ratio 22.2 LAB CHEMISTRY METHOD 12/04/2024 7:49 AM EDT [facility] Calcium 8.7 8.5 - 10.5 mg/dL LAB CHEMISTRY METHOD 12/04/2024 7:49 AM EDT [facility] Blood Venous blood specimen / Unknown Venipuncture / Unknown 12/04/2024 7:04 AM EDT 12/04/2024 7:17 AM EDT Audrey GRAF LAB BLOOD ORDERABLES Fi nal Result [facility] [address] [place] [address], * (ABNORMAL) CBC auto differential (12/04/2024 5:28 AM EDT) WBC 4.6(L) 4.8 - 10.8 K/mcL LAB HEMETOLOGY METHOD 12/04/2024 6:34 AM T [facility] RBC 4.10(L) 4.50 - 5.50 M/mcL LAB HEMETOLOGY METHOD 12/04/2024 6:34 AM T [facility] Hemoglobin 11.9(L) 13.5 - 17.5 g/dL LAB HEMETOLOGY METHOD 12/04/2024 6:34 AM T [facility] Hematocrit 36.7(L) 42.0 - 54.0 % LAB HEMETOLOGY METHOD 12/04/2024 6:34 AM T [facility] MCV 89.7 79.0 - 98.0 FL LAB HEMETOLOGY METHOD 12/04/2024 6:34 AM EDT [facility] MCH 29.1 27.0 - 32.0 pcg LAB HEMETOLOGY METHOD 12/04/2024 6:[address] [facility] MCHC 32.4 32.0 - 37.0 g/dL LAB HEMETOLOGY METHOD 12/04/2024 6:[address] [facility] RDW 14.9 11.0 - 15.0 % LAB HEMETOLOGY METHOD 12/04/2024 6:[address] [facility] Platelets 234 130 - 400 K/mcL LAB HEMETOLOGY METHOD 12/04/2024 6:[address] [facility] MPV 10.6 7.0 - 11.0 FL LAB HEMETOLOGY METHOD 12/04/2024 6:[address] [facility] NRBC 0.0 <1.0 % LAB HEMETOLOGY METHOD 12/04/2024 6:[address] [facility] NRBC Absolute 0.00 <0.10 K/mcL LAB HEMETOLOGY METHOD 12/04/2024 6:[address] [facility] Neutrophils Relative 48.5 % LAB HEMETOLOGY METHOD 12/04/2024 6:[address] [facility] Lymphocytes Relative 28.0 % LAB HEMETOLOGY METHOD 12/04/2024 6:[address] [facility] Monocytes Relative 18.5 % LAB HEMETOLOGY METHOD 12/04/2024 6:[address] [facility] Eosinophils Relative 3.7 % LAB HEMETOLOGY METHOD 12/04/2024 6:[address] [facility] Basophils Relative 0.9 % LAB HEMETOLOGY METHOD 12/04/2024 6:[address] [facility] Immature Granulocytes Relative 0.4 % LAB HEMETOLOGY METHOD 12/04/2024 6:[address] [facility] Neutrophils Absolute 2.25 1.50 - 7.00 K/mcL LAB HEMETOLOGY METHOD 12/04/2024 6:34 AM EDT [facility] Lymphocytes Absolute 1.30 1.00 - 5.00 K/[facility] LAB HEMETOLOGY METHOD 12/04/2024 6:34 AM EDT [facility] Monocytes Absolute 0.86 0.20 - 1.00 K/[facility] LAB HEMETOLOGY METHOD 12/04/2024 6:34 AM EDT [facility] Eosinophils Absolute 0.17 0.00 - 0.50 K/[facility] LAB HEMETOLOGY METHOD 12/04/2024 6:34 AM EDT [facility] Basophils Absolute 0.04 0.00 - 0.20 K/[facility] LAB HEMETOLOGY METHOD 12/04/2024 6:34 AM EDT [facility] Immature Granulocytes Absolute 0.02 0.00 - 0.03 K/[facility] LAB HEMETOLOGY METHOD 12/04/2024 6:34 AM EDT [facility] Blood Venous blood specimen / Unknown Venipuncture / Unknown 12/04/2024 5:28 AM EDT 12/04/2024 6:14 AM EDT us Audrey GRAF LAB BLOOD ORDERABLES Fi nal Result [facility] [address] [place] [address], * Magnesium (12/04/2024 5:28 AM EDT) Magnesium 2.3 1.9 - 2.6 mg/dL LAB CHEMISTRY METHOD 12/04/2024 7:06 AM EDT [facility] Blood Venous blood specimen / Unknown Venipuncture / Unknown 12/04/2024 5:28 AM EDT 12/04/2024 6:13 AM EDT us Audrey GRAF LAB BLOOD ORDERABLES Fi nal Result Performing Organization Address City/[facility]/ZIP Co de Phone Number [facility] [address] [place] [address], [place] [phone] * Thomas urine culture tube (12/04/2024 2:14 AM EDT) [facility] Extra Tube Hold for add-ons. 12/04/2024 4:01 AM EDT [facility] Comment:Auto resulted. Urine Urine specimen obtained by clean catch procedure / Unknown Non-blood Collection / Unknown 12/04/2024 2:14 AM EDT 12/04/2024 2:22 AM EDT us Precious GRAF LAB URINE ORDERABLES Final Resu lt Performing Organization Address [facility]/ZIP Co de Phone Number [facility] [address] [place] [address], [place] [phone] * (ABNORMAL) Urinalysis with reflex microscopic and culture (12/04/2024 2:14 AM EDT) [facility] Specific Wrights Urine 1.024 1.003 - 1.030 LAB URINALYSIS - AUTOMATED METHOD 12/04/2024 2:26 AM EDT [facility] pH, Urine 5.5 5.0 - 8.0 pH LAB URINALYSIS - AUTOMATED METHOD 12/04/2024 2:26 AM EDT [facility] Leukocytes, Urine Negative Negative LAB URINALYSIS - AUTOMATED METHOD 12/04/2024 2:26 AM EDT [facility] Nitrite, Urine Negative Negative LAB URINALYSIS - AUTOMATED METHOD 12/04/2024 2:26 AM T [facility] Protein, Urine Negative <=Trace mg/dL LAB URINALYSIS - AUTOMATED METHOD 12/04/2024 2:26 AM T [facility] Glucose, Urine Negative Negative mg/dL LAB URINALYSIS - AUTOMATED METHOD 12/04/2024 2:26 AM EDT [facility] Ketones, Urine Trace(A) Negative mg/dL LAB URINALYSIS - AUTOMATED METHOD 12/04/2024 2:26 AM EDT [facility] Urobilinogen, Urine 0.2 0.2 - 1.0 mg/dL LAB URINALYSIS - AUTOMATED METHOD 12/04/2024 2:26 AM EDT [facility] Bilirubin, Urine Negative Negative LAB URINALYSIS - AUTOMATED METHOD 12/04/2024 2:26 AM EDT [facility] Blood, Urine Negative Negative LAB URINALYSIS - AUTOMATED METHOD 12/04/2024 2:26 AM EDT [facility] Urine Urine specimen obtained by clean catch procedure / Unknown Non-blood Collection / Unknown 12/04/2024 2:14 AM EDT 12/04/2024 2:22 AM EDT us Precious GRAF LAB URINE ORDERABLES Final Resu lt [facility] [address] [place] [address], * XR Chest 2 Views (12/04/2024 2:04 AM EDT) Anatomical Region Laterality Modality Body Radiographic Brynn ging 12/04/2024 8:53 AM EDT Impressions 12/04/2024 8:55 AM EDT Impression: 1. Stable mild cardiomegaly. 2. Large hiatal hernia. 3. Mild bibasilar subsegmental atelectasis. Telerad HOMAR ([id number]) -------- FINAL REPORT -------- Dictated By: Lovely Henderson Dictated Date: 12/04/2024 08:53 ET Assigned Physician: Lovely Henderson Reviewed and Electronically Signed By: Lovely Henderson Signed Date: 12/04/2024 08:55 ET Workstation ID: [id number] Transcribed By: Self Edit Transcribed Date: 12/04/2024 08:53 ET Narrative 12/04/2024 8:55 AM EDT History: Chest pain. Comparison: 11/29/24, 02/29/24, thoracic CTA 11/29/24 Findings: PA and lateral views. Mild enlargement of the cardiac silhouette is unchanged. Atherosclerotic calcification of the aorta is noted. Soft tissue fullness at the base of the thorax in the midline is consistent with a large hiatal hernia, with CT correlation. Hilar contours and pulmonary vascularity are within normal limits. Mild bandlike opacity at the lung bases suggests subsegmental atelectasis and is without significant change from the previous studies. The costophrenic angles are sharp. Cholecystectomy clips are noted. A compression fracture at the thoracolumbar junction is without significant change. Procedure Note Lovely Henderson MD - 12/04/2024 History: Chest pain. Comparison: 11/29/24, 02/29/24, thoracic CTA 11/29/24 Findings: PA and lateral views. Mild enlargement of the cardiac silhouette isunchanged. Atherosclerotic calcification of the aorta is noted. Softtissue fullness at the base of the thorax in the midline is consistentwith a large hiatal hernia, with CT correlation. Hilar contours and pulmonary vascularity are within normal limits. Mildbandlike opacity at the lung bases suggests subsegmental atelectasis andis without significant change from the previous studies. The costophrenicangles are sharp. Cholecystectomy clips are noted. A compression fracture at thethoracolumbar junction is without significant change. IMPRESSION: Impression: 1. Stable mild cardiomegaly. 2. Large hiatal hernia. 3. Mild bibasilar subsegmental atelectasis. Telerad HOMAR ([id number]) -------- FINAL REPORT -------- Dictated By: Lovely Henderson Dictated Date: 12/04/2024 08:53 ET Assigned Physician: Lovely Henderson Reviewed and Electronically Signed By: Lovley Henderson Signed Date: 12/04/2024 08:55 ET Workstation ID: [id number] Transcribed By: Self Edit Transcribed Date: 12/04/2024 08:53 ET us Amaury Gallagher MD IMG XR PROCEDURES Final Result * Troponin I high sensitivity (12/04/2024 1:53 AM EDT) [facility] High Sensitivity Troponin I 8 <=79 ng/L LAB CHEMISTRY METHOD 12/04/2024 2:27 AM EDT [facility] Blood Venous blood specimen / Unknown Venipuncture / Unknown 12/04/2024 1:53 AM EDT 12/04/2024 1:55 AM EDT Narrative [facility] - 12/04/2024 2:27 AM EDT High levels of biotin in samples may falsely decrease hsTroponin values. ??Use caution when interpreting hsTroponin results in patients taking biotin who exhibit renal impairment (eGFR <60) or in patients taking more than 20 mg/day of biotin. us Amaury Gallagher MD LAB BLOOD ORDERABLES Final Resu lt [facility] [address] [place] [address], * Respiratory virus panel molecular study (12/04/2024 12:54 AM EDT) [facility] Adenovirus Detection by PCR Not Detected Not Detected LAB MICROBIOLOGY METHOD 12/04/2024 2:56 AM EDT [facility] Influenza A PCR Not Detected Not Detected LAB MICROBIOLOGY METHOD 12/04/2024 2:56 AM EDT [facility] Influenza B PCR Not Detected Not Detected LAB MICROBIOLOGY METHOD 12/04/2024 2:56 AM EDT [facility] Coronavirus 229E Not Detected Not Detected LAB MICROBIOLOGY METHOD 12/04/2024 2:56 AM EDT [facility] Coronavirus HKU1 Not Detected Not Detected LAB MICROBIOLOGY METHOD 12/04/2024 2:56 AM EDT [facility] Coronavirus OC43 Not Detected Not Detected LAB MICROBIOLOGY METHOD 12/04/2024 2:56 AM EDT [facility] Coronavirus NL63 Not Detected Not Detected LAB MICROBIOLOGY METHOD 12/04/2024 2:56 AM EDT [facility] Parainfluenza Virus 1 Not Detected Not Detected LAB MICROBIOLOGY METHOD 12/04/2024 2:56 AM EDT [facility] Parainfluenza Virus 2 Not Detected Not Detected LAB MICROBIOLOGY METHOD 12/04/2024 2:56 AM EDT [facility] Parainfluenza Virus 3 Not Detected Not Detected LAB MICROBIOLOGY METHOD 12/04/2024 2:56 AM EDT [facility] Parainfluenza Virus 4 Not Detected Not Detected LAB MICROBIOLOGY METHOD 12/04/2024 2:56 AM EDT [facility] RSV PCR Not Detected Not Detected LAB MICROBIOLOGY METHOD 12/04/2024 2:56 AM EDT [facility] Human Metapneumovirus A and B Not Detected Not Detected LAB MICROBIOLOGY METHOD 12/04/2024 2:56 AM EDT [facility] Rhinovirus/Entero virus Not Detected Not Detected LAB MICROBIOLOGY METHOD 12/04/2024 2:56 AM EDT [facility] Bordetella pertussis Not Detected Not Detected LAB MICROBIOLOGY METHOD 12/04/2024 2:56 AM EDT [facility] Bordetella parapertussis Not Detected Not Detected LAB MICROBIOLOGY METHOD 12/04/2024 2:56 AM EDT [facility] Mycoplasma pneumo by PCR Not Detected Not Detected LAB MICROBIOLOGY METHOD 12/04/2024 2:56 AM EDT [facility] Chlamydia pneumoniae Not Detected Not Detected LAB MICROBIOLOGY METHOD 12/04/2024 2:56 AM EDT [facility] SARS COV-2 Not Detected Not Detected LAB MICROBIOLOGY METHOD 12/04/2024 2:56 AM EDT [facility] Swab Both anterior nares / Unknown Non-blood Collection / Unknown 12/04/2024 12:54 AM EDT 12/04/2024 1:58 AM EDT Narrative [facility] - 12/04/2024 2:56 AM EDT Testing was performed using the [employer] Respiratory Pathogen PCR Assay. All results must be correlated with the clinical findings. Results should not be used as the sole basis for diagnosis. False Negative results may occur from the presence of sequence variants in the region targeted by the assay or the presence of inhibitors. Results may be affected by concurrent antiviral/antimicrobial therapy or levels of organisms that are below the limit of detection. us Precious GRAF LAB MICROBIOLOGY - GENERAL SHANI DUDLEY Final Result [facility] [address] [place] [address], * (ABNORMAL) CBC auto differential (12/04/2024 12:16 AM EDT) WBC 4.6(L) 4.8 - 10.8 K/mcL LAB HEMETOLOGY METHOD 12/04/2024 12:27 AM EDT [facility] RBC 4.40(L) 4.50 - 5.50 M/mcL LAB HEMETOLOGY METHOD 12/04/2024 12:[address] [facility] Hemoglobin 12.3(L) 13.5 - 17.5 g/dL LAB HEMETOLOGY METHOD 12/04/2024 12:27 AM EDT [facility] Hematocrit 38.8(L) 42.0 - 54.0 % LAB HEMETOLOGY METHOD 12/04/2024 12:27 AM EDT [facility] MCV 89.2 79.0 - 98.0 FL LAB HEMETOLOGY METHOD 12/04/2024 12:[address] [facility] MCH 28.3 27.0 - 32.0 pcg LAB HEMETOLOGY METHOD 12/04/2024 12:[address] [facility] MCHC 31.7(L) 32.0 - 37.0 g/dL LAB HEMETOLOGY METHOD 12/04/2024 12:[address] [facility] RDW 15.0 11.0 - 15.0 % LAB HEMETOLOGY METHOD 12/04/2024 12:[address] [facility] Platelets 247 130 - 400 K/mcL LAB HEMETOLOGY METHOD 12/04/2024 12:[address] [facility] MPV 9.9 7.0 - 11.0 FL LAB HEMETOLOGY METHOD 12/04/2024 12:[address] [facility] NRBC 0.0 <1.0 % LAB HEMETOLOGY METHOD 12/04/2024 12:[address] [facility] NRBC Absolute 0.00 <0.10 K/mcL LAB HEMETOLOGY METHOD 12/04/2024 12:[address] [facility] Neutrophils Relative 50.6 % LAB HEMETOLOGY METHOD 12/04/2024 12:[address] [facility] Lymphocytes Relative 26.1 % LAB HEMETOLOGY METHOD 12/04/2024 12:[address] [facility] Monocytes Relative 18.2 % LAB HEMETOLOGY METHOD 12/04/2024 12:[address] [facility] Eosinophils Relative 3.5 % LAB HEMETOLOGY METHOD 12/04/2024 12:[address] [facility] Basophils Relative 0.9 % LAB HEMETOLOGY METHOD 12/04/2024 12:[address] [facility] Immature Granulocytes Relative 0.7 % LAB HEMETOLOGY METHOD 12/04/2024 12:[address] [facility] Neutrophils Absolute 2.31 1.50 - 7.00 K/mcL LAB HEMETOLOGY METHOD 12/04/2024 12:27 AM EDT [facility] Lymphocytes Absolute 1.19 1.00 - 5.00 K/mcL LAB HEMETOLOGY METHOD 12/04/2024 12:27 AM EDT [facility] Monocytes Absolute 0.83 0.20 - 1.00 K/mcL LAB HEMETOLOGY METHOD 12/04/2024 12:27 AM EDT [facility] Eosinophils Absolute 0.16 0.00 - 0.50 K/[facility] LAB HEMETOLOGY METHOD 12/04/2024 12:27 AM EDT [facility] Basophils Absolute 0.04 0.00 - 0.20 K/[facility] LAB HEMETOLOGY METHOD 12/04/2024 12:27 AM EDT [facility]) [facility] Immature Granulocytes Absolute 0.03 0.00 - 0.03 K/[facility] LAB HEMETOLOGY METHOD 12/04/2024 12:27 AM EDT [facility] Blood Venous blood specimen / Unknown Venipuncture / Unknown 12/04/2024 12:16 AM EDT 12/04/2024 12:22 AM EDT us Amaury Gallagher MD LAB BLOOD ORDERABLES Final Resu lt [facility] [address] [place] [address], * B-type natriuretic peptide (12/04/2024 12:16 AM EDT) BNP 39 <=100 pcg/mL LAB CHEMISTRY METHOD 12/04/2024 1:01 AM EDT [facility] Blood Venous blood specimen / Unknown Venipuncture / Unknown 12/04/2024 12:16 AM EDT 12/04/2024 12:22 AM EDT us Amaury Gallagher MD LAB BLOOD ORDERABLES Final Resu lt [facility] [address] [place] [address], * (ABNORMAL) Magnesium (12/04/2024 12:16 AM EDT) Pathologist [facility] [place] Magnesium 1.7(L) 1.9 - 2.6 mg/dL LAB CHEMISTRY METHOD 12/04/2024 12:46 AM EDT [facility] Blood Venous blood specimen / Unknown Venipuncture / Unknown 12/04/2024 12:16 AM EDT 12/04/2024 12:22 AM EDT us Amaury Gallagher MD LAB BLOOD ORDERABLES Final Resu lt Performing Organization Address [facility] de Phone Number [facility] [address] [place] [address], * Lipase (12/04/2024 12:16 AM EDT) [facility] Lipase 24 13 - 75 unit/L LAB CHEMISTRY METHOD 12/04/2024 12:46 AM EDT [facility] Blood Venous blood specimen / Unknown Venipuncture / Unknown 12/04/2024 12:16 AM EDT 12/04/2024 12:22 AM EDT us Amaury Gallagher MD LAB BLOOD ORDERABLES Final Resu lt Performing Organization Address [facility]/ZIP Co de Phone Number [facility] [address] [place] [address], [place] [phone] * (ABNORMAL) Comprehensive metabolic panel (12/04/2024 12:16 AM EDT) [facility] Sodium 141 133 - 145 mmol/L LAB CHEMISTRY METHOD 12/04/2024 12:54 AM EDT [facility] Potassium 4.0 3.5 - 5.5 mmol/L LAB CHEMISTRY METHOD 12/04/2024 12:[address] [facility] Chloride 104 96 - 110 mmol/L LAB CHEMISTRY METHOD 12/04/2024 12:[address] [facility] CO2 31 21 - 32 mmol/L LAB CHEMISTRY METHOD 12/04/2024 12:[address] [facility] Anion Gap 6 3 - 11 LAB CHEMISTRY METHOD 12/04/2024 12:[address] [facility] Glucose 116(H) 70 - 100 mg/dL LAB CHEMISTRY METHOD 12/04/2024 12:[address] [facility] BUN 20 5 - 25 mg/dL LAB CHEMISTRY METHOD 12/04/2024 12:[address] [facility] Creatinine 0.89 0.70 - 1.30 mg/dL LAB CHEMISTRY METHOD 12/04/2024 12:[address] [facility] eGFR 82 >=60 mL/min/1. 73m2 LAB CHEMISTRY METHOD 12/04/2024 12:[address] [facility] Comment:Calculation based on the??Chronic Kidney Disease Epidemiology Collaboration (CKD-EPI) equation refit??without adjustment for race. BUN/Creatinine Ratio 22.5 LAB CHEMISTRY METHOD 12/04/2024 12:[address] [facility] Calcium 8.6 8.5 - 10.5 mg/dL LAB CHEMISTRY METHOD 12/04/2024 12:[address] [facility] AST (SGOT) 82(H) 10 - 42 unit/L LAB CHEMISTRY METHOD 12/04/2024 12:[address] [facility] ALT (SGPT) 90(H) 10 - 60 unit/L LAB CHEMISTRY METHOD 12/04/2024 12:[address] [facility] Alkaline Phosphatase 75 42 - 121 unit/L LAB CHEMISTRY METHOD 12/04/2024 12:[address] [facility] Total Protein 6.2 6.0 - 8.0 g/dL LAB CHEMISTRY METHOD 12/04/2024 12:54 AM EDT [facility] Albumin 3.3 3.2 - 5.0 g/dL LAB CHEMISTRY METHOD 12/04/2024 12:54 AM EDT [facility] Total Bilirubin 0.5 0.0 - 1.4 mg/dL LAB CHEMISTRY METHOD 12/04/2024 12:54 AM EDT [facility] Blood Venous blood specimen / Unknown Venipuncture / Unknown 12/04/2024 12:16 AM EDT 12/04/2024 12:22 AM EDT us Amaury Gallagher MD LAB BLOOD ORDERABLES Final Resu lt Performing Organization Address [facility] Co de Phone Number [facility] [address] [place] [address], [place] [phone] * Troponin I high sensitivity (12/04/2024 12:16 AM EDT) [facility] High Sensitivity Troponin I 7 <=79 ng/L LAB CHEMISTRY METHOD 12/04/2024 12:47 AM EDT [facility] Blood Venous blood specimen / Unknown Venipuncture / Unknown 12/04/2024 12:16 AM EDT 12/04/2024 12:22 AM EDT Narrative [facility] - 12/04/2024 12:47 AM EDT High levels of biotin in samples may falsely decrease hsTroponin values. ??Use caution when interpreting hsTroponin results in patients taking biotin who exhibit renal impairment (eGFR <60) or in patients taking more than 20 mg/day of biotin. us Amaury Gallagher MD LAB BLOOD ORDERABLES Final Resu lt Performing Organization Address [facility]/ZIP Co de Phone Number [facility] [address] [place] [address], [place] [phone] documented in this encounter Visit Diagnoses Diagnosis Shortness of breath- Primary Shortness of breath Acute hypoxic respiratory failure Bilateral lower extremity edema Acute on chronic diastolic congestive heart failure ([facility]) CHF (congestive heart failure) ([facility]) Congestive heart failure, unspecified documented in this encounter Admitting Diagnoses Diagnosis Shortness of breath documented in this encounter Administered Medications Inactive Administered Medications - up to 3 most recent administrations Medication Order MAR Action Action Date Dose Rate Site acetaminophen (TYLENOL) tablet 650 mg 650 mg, oral, Once, On Mon12/04/24 at 0246, For 1 dose Given 12/04/2024 3:27 AM EDT 650 mg acetaminophen (TYLENOL) tablet 650 mg 650 mg, oral, Every 6 hours PRN, mild pain, Starting on Mon12/04/24 at 0417 Given 12/05/2024 9:05 AM EDT 650 mg Given 12/04/2024 1:27 PM EDT 650 mg aspirin EC tablet 81 mg 81 mg, oral, Daily, First dose on Mon12/04/24 at 0900, Do not crush, chew, or split. Given 12/05/2024 9:04 AM EDT 81 mg Given 12/04/2024 8:17 AM EDT 81 mg atorvastatin (LIPITOR) tablet 40 mg 40 mg, oral, Daily, First dose on Mon12/04/24 at 0900 Given 12/05/2024 9:05 AM EDT 40 mg Given 12/04/2024 8:17 AM EDT 40 mg bisacodyL (DULCOLAX) EC tablet 10 mg 10 mg, oral, Daily PRN, constipation, Starting on Mon12/04/24 at 0417, 1st line for treatment of constipation - give scheduled if no bowel movement in past 24 hours. Do not crush, chew, or split. clopidogreL (PLAVIX) tablet 75 mg 75 mg, oral, Daily, First dose on Mon12/04/24 at 0900 Given 12/05/2024 9:04 AM EDT 75 mg Given 12/04/2024 8:17 AM EDT 75 mg finasteride (PROSCAR) tablet 5 mg 5 mg, oral, Daily, First dose on Mon12/04/24 at 0900, HAZARDOUS Drug Precautions - Low Risk (Category A/NIOSH Group 3) Reproductive Risk Only: - Do NOT split, crush, or open dosage units - Single pair of ASTM standard D6978 certified chemotherapy gloves - Eye protection (goggles or face shield) required only with a potential for facial contact (i.e. concern for spitting or vomiting of the dose during or after administration) Given 12/05/2024 9:04 AM EDT 5 mg Given 12/04/2024 8:17 AM EDT 5 mg furosemide (LASIX) injection 40 mg 40 mg, intravenous, Once, On Mon12/04/24 at 0211, For 1 dose Given 12/04/2024 2:26 AM EDT 40 mg furosemide (LASIX) injection 40 mg 40 mg, intravenous, BID Diuretic, First dose on Mon12/04/24 at 0900 Given 12/05/2024 2:19 PM EDT 40 mg Given 12/05/2024 9:03 AM EDT 40 mg Given 12/04/2024 4:37 PM EDT 40 mg iopamidoL (ISOVUE-370) 370 mg iodine /mL (76 %) injection 90 mL 90 mL, intravenous, Once in imaging, Starting on Antonia 12/05/24 at 1016, For 1 dose Given 12/05/2024 10:16 AM EDT 90 mL magnesium sulfate 2 gram/50 mL (4 %) IVPB 2 g 2 g, intravenous, at 25 mL/hr, Administer over 2 Hours, Once, On Mon12/04/24 at 0212, For 1 dose New Bag 12/04/2024 2:27 AM EDT 2 g 25 mL/hr ondansetron (PF) (ZOFRAN) injection 4 mg 4 mg, intravenous, Every 8 hours PRN, vomiting, nausea, Starting on Mon12/04/24 at 0417, -ONLY give IV if patient is unable to take orally. -If inadequate response within 30 minutes, proceed to next-line agent or contact provider if no further options ordered. ondansetron ODT (ZOFRAN-ODT) disintegrating tablet 4 mg 4 mg, oral, Every 8 hours PRN, vomiting, nausea, Starting on Mon12/04/24 at 0417, -Give IV if patient is unable to take orally. -If inadequate response within 30 minutes, proceed to next-line agent or contact provider if no further options ordered. For ODT tablets: -Do not remove from blister pack until just before administering. -Patient should allow tablet to dissolve on tongue. oxyBUTYnin XL (DITROPAN-XL) 24 hr tablet 10 mg 10 mg, oral, Daily, First dose on Mon12/04/24 at 0900, Do not crush, chew, or split. Given 12/05/2024 9:03 AM EDT 10 mg Given 12/04/2024 8:17 AM EDT 10 mg oxyCODONE (ROXICODONE) immediate release tablet 2.5 mg 2.5 mg, oral, Every 8 hours PRN, severe pain, Starting on Mon12/04/24 at 1401 pantoprazole (PROTONIX) EC tablet 40 mg 40 mg, oral, Every morning before breakfast, First dose on Mon12/04/24 at 0700, Do not crush, chew, or split. Given 12/05/2024 6:20 AM EDT 40 mg Given 12/04/2024 6:42 AM EDT 40 mg perflutren lipid microsphere (DEFINITY) 1.3 mL in sodium chloride 0.9% 8.7 mL injection 10 mL, intravenous, Administer over 10 Minutes, Once in imaging, Starting on Mon12/04/24 at 1317, For 1 dose, CV Medication Orders Given 12/04/2024 1:17 PM EDT 10 mL sodium chloride 0.9 % flush 10 mL 10 mL, intravenous, Once, On Antonia 12/05/24 at 1045, For 1 dose Given 12/05/2024 10:16 AM EDT 10 mL tamsulosin (FLOMAX) 24 hr capsule 0.4 mg 0.4 mg, oral, Nightly, First dose on Mon12/04/24 at 2100, For oral administration: capsules should be swallowed whole (Do not crush, chew, or open). For tube administration: open capsule and administer with water (granules should NOT be crushed). Given 12/04/2024 8:35 PM EDT 0.4 mg traZODone (DESYREL) tablet 25 mg 25 mg, oral, Nightly, First dose on Mon12/04/24 at 2100, Hold for sedation Given 12/04/2024 8:35 PM EDT 25 mg documented in this encounter Discontinued Medications Medication Sig Discontinue Reason Start Date End Da te furosemide (LASIX) 20 mg tablet Take 1 tablet (20 mg total) by mouth 2 (two) times daily morning and afternoon. 12/01/2024 12/05/2024 documented as of this encounter Active and Recently Administered Medications Times are shown in EDT. Scheduled Medication Order 12/03/2024 12/04/2024 12/05/2024 acetaminophen (TYLENOL) tablet 650 mg (COMPLETED) 650 mg, oral, Once, On Mon12/04/24 at 0246, For 1 dose 0327 (Given - Provider: Katie Camargo RN) aspirin EC tablet 81 mg 81 mg, oral, Daily, First dose on Mon12/04/24 at 0900, Do not crush, chew, or split. 0817 (Given - Provider: Khushi Sewell RN) 09 (Given - Provider: SKYE Morales) atorvastatin (LIPITOR) tablet 40 mg 40 mg, oral, Daily, First dose on Mon12/04/24 at 0900 0817 (Given - Provider: Khushi Sewell RN) 09 (Given - Provider: SKYE Morales) clopidogreL (PLAVIX) tablet 75 mg 75 mg, oral, Daily, First dose on Mon12/04/24 at 0900 0817 (Given - Provider: Khushi Sewell RN) 09 (Given - Provider: SKYE Morales) finasteride (PROSCAR) tablet 5 mg 5 mg, oral, Daily, First dose on Mon12/04/24 at 0900, HAZARDOUS Drug Precautions - Low Risk (Category A/NIOSH Group 3) Reproductive Risk Only: - Do NOT split, crush, or open dosage units - Single pair of ASTM standard [id number] certified chemotherapy gloves - Eye protection (goggles or face shield) required only with a potential for facial contact (i.e. concern for spitting or vomiting of the dose during or after administration) 0817 (Given - Provider: Khushi Sewell RN) 09 (Given - Provider: SKYE Morales) furosemide (LASIX) injection 40 mg (COMPLETED) 40 mg, intravenous, Once, On Mon12/04/24 at 0211, For 1 dose 0226 (Given - Provider: Katie Camargo RN) furosemide (LASIX) injection 40 mg 40 mg, intravenous, BID Diuretic, First dose on Mon12/04/24 at 0900 0817 (Given - Provider: Khushi Sewell RN)1637 (Given - Provider: Khushi Sewell RN) 0903 (Given - Provider: SKYE Morales)1419 (Given - Provider: Kylah Valenzulea RN - Comment: PER PROVIDER ORDER) iopamidoL (ISOVUE-370) 370 mg iodine /mL (76 %) injection 90 mL (COMPLETED) 90 mL, intravenous, Once in imaging, Starting on Mon12/05/24 at 1016, For 1 dose 1016 (Given - Provid er: Soledad Eubanksrum) magnesium sulfate 2 gram/50 mL (4 %) IVPB 2 g (COMPLETED) 2 g, intravenous, at 25 mL/hr, Administer over 2 Hours, Once, On Mon12/04/24 at 0212, For 1 dose 0227 (New Bag - Provider: Katie Camargo, HARPREET)0503 (Stopped - Provider: Katie Camargo RN) oxyBUTYnin XL (DITROPAN-XL) 24 hr tablet 10 mg 10 mg, oral, Daily, First dose on Mon12/04/24 at 0900, Do not crush, chew, or split. 0817 (Given - Provider: Khushi Sewell RN) 0903 (Given - Provider: SKYE Morales) pantoprazole (PROTONIX) EC tablet 40 mg 40 mg, oral, Every morning before breakfast, First dose on Mon12/04/24 at 0700, Do not crush, chew, or split. 0642 (Given - Provider: Stephanie Villatoro RN) 0620 (Given - Provider: Rosie Garcia RN) perflutren lipid microsphere (DEFINITY) 1.3 mL in sodium chloride 0.9% 8.7 mL injection (COMPLETED) 10 mL, intravenous, Administer over 10 Minutes, Once in imaging, Starting on Mon12/04/24 at 1317, For 1 dose, CV Medication Orders 1317 (Given - Provider: Brooklyn Sanford) sodium chloride 0.9 % flush 10 mL (COMPLETED) 10 mL, intravenous, Once, On Antonia 12/05/24 at 1045, For 1 dose 1016 (Given - Provid er: Soledad Charum) tamsulosin (FLOMAX) 24 hr capsule 0.4 mg 0.4 mg, oral, Nightly, First dose on Mon12/04/24 at 2100, For oral administration: capsules should be swallowed whole (Do not crush, chew, or open). For tube administration: open capsule and administer with water (granules should NOT be crushed). 2034 (Given - Provider: Rosie Garcia, HARPREET) traZODone (DESYREL) tablet 25 mg 25 mg, oral, Nightly, First dose on Mon12/04/24 at 2100, Hold for sedation 2034 (Given - Provider: Rosie Garcia RN) PRN Medication Order 12/03/2024 12/04/2024 12/05/2024 acetaminophen (TYLENOL) tablet 650 mg 650 mg, oral, Every 6 hours PRN, mild pain, Starting on Mon12/04/24 at 0417 1327 (Given - Provider: Khushi Sewell RN) 0905 (Given - Provider: SKYE Morales) bisacodyL (DULCOLAX) EC tablet 10 mg 10 mg, oral, Daily PRN, constipation, Starting on Mon12/04/24 at 0417, 1st line for treatment of constipation - give scheduled if no bowel movement in past 24 hours. Do not crush, chew, or split. ondansetron (PF) (ZOFRAN) injection 4 mg(Linked Group 1) 4 mg, intravenous, Every 8 hours PRN, vomiting, nausea, Starting on Mon12/04/24 at 0417, -ONLY give IV if patient is unable to take orally. -If inadequate response within 30 minutes, proceed to next-line agent or contact provider if no further options ordered. ondansetron ODT (ZOFRAN-ODT) disintegrating tablet 4 mg(Linked Group 1) 4 mg, oral, Every 8 hours PRN, vomiting, nausea, Starting on Mon12/04/24 at 0417, -Give IV if patient is unable to take orally. -If inadequate response within 30 minutes, proceed to next-line agent or contact provider if no further options ordered. For ODT tablets: -Do not remove from blister pack until just before administering. -Patient should allow tablet to dissolve on tongue. oxyCODONE (ROXICODONE) immediate release tablet 2.5 mg 2.5 mg, oral, Every 8 hours PRN, severe pain, Starting on Mon12/04/24 at 1401 Linked Groups Order Group 1: ondansetron ODT (ZOFRAN-ODT) disintegrating tablet 4 mgJump to med 4 mg, oral, Every 8 hours PRN, vomiting, nausea, Starting on Mon12/04/24 at 0417, -Give IV if patient is unable to take orally. -If inadequate response within 30 minutes, proceed to next-line agent or contact provider if no further options ordered. For ODT tablets: -Do not remove from blister pack until just before administering. -Patient should allow tablet to dissolve on tongue. Or ondansetron (PF) (ZOFRAN) injection 4 mgJump to med 4 mg, intravenous, Every 8 hours PRN, vomiting, nausea, Starting on Mon12/04/24 at 0417, -ONLY give IV if patient is unable to take orally. -If inadequate response within 30 minutes, proceed to next-line agent or contact provider if no further options ordered. documented in this encounter Orders Medications Ordered That Georges ht Not Have Been Administered Count Last Ordered Date First Ordered Date bisacodyL (DULCOLAX) EC tablet 10 mg 1 11/10 ondansetron (PF) (ZOFRAN) injection 4 mg 1 12/04/2024 ondansetron ODT (ZOFRAN-ODT) disintegrating tablet 4 mg 1 12/04/2024 oxyCODONE (ROXICODONE) immed iate release tablet 2.5 mg 1 12/04/2024 EKG Orders Without Results Count Last Ordered D ate First Ordered Date ECG 12-LEAD 1 12/04/2024 Nursing Count Last Ordered Date First Orde red Date CHECK PULSE OXIMETRY WHILE AMBULATING 1 VITAL SIGNS 1 12/04/2024 IV Count Last Ordered Date First Orde red Date INSERT PERIPHERAL IV 1 12/04/2024 Admission Count Last Ordered Date First Orde red Date ADMIT TO INPATIENT 1 12/04/2024 Transfer Count Last Ordered Date First Orde red Date ED TO FLOOR BED REQUEST 1 12/04/2024 Discharge Count Last Ordered Date First Orde red Date DISCHARGE PATIENT 1 12/05/2024 documented in this encounter Additional Health Concerns Infection Onset Date Last Indicated Resolved Time Respiratory Rule-Out 12/04/2024 12/04/2024 025 2:56 AM EDT COVID-19 Rule-Out 12/04/2024 12/04/2024 12/04/2024 2:56 AM EDT documented as of this encounter Care Teams Structures Mechanic Relationship Specialty Start Date End Date Sarah Ponce NP [address] [facility] [address] [place], [place] PCP - General Nurse Practitioner 11/29/24 documented as of this encounter
--- OUTSIDE RECORDS SUMMARY | 2024-12-10 15:25 | XMS_ITS | Clinical Summary ---
Author Organization LL [address] [place] [address] Address [address] [place] [address] Phone Care Team Providers Care Estimator Printing Name Role Phone PonceBladimir griffithSarah NP Primary Care Provider [phone] Allergies No known active allergies Medications atorvastatin (LIPITOR) 40 mg tablet Take 1 tablet (40 mg total) by mouth 1 (one) time each day. 11/25/19 25 Active clopidogreL (PLAVIX) 75 mg tablet Take 1 tablet (75 mg total) by mouth 1 (one) time each day. 11/25/19 25 Active finasteride (PROSCAR) 5 mg tablet Take 1 tablet (5 mg total) by mouth 1 (one) time each day. 10/09/19 25 Active omeprazole (PriLOSEC) [address] capsule Take 1 capsule (20 mg total) by mouth 1 (one) time each day. 11/25/19 25 Active oxyBUTYnin XL (DITROPAN-XL) 10 mg 24 hr tablet Take 1 tablet (10 mg total) by mouth 1 (one) time each day. 11/29/19 25 Active tamsulosin (FLOMAX) 0.4 mg 24 hr capsule Take 1 capsule (0.4 mg total) by mouth at bedtime. 10/29/19 25 Active aspirin 81 mg EC tablet Take 1 tablet (81 mg total) by mouth 1 (one) time each day. Active spironolactone (ALDACTONE) 25 mg tablet Take 1 tablet (25 mg total) by mouth 1 (one) time each day. 30 each 12/02/19 25 025 Active metoprolol tartrate (LOPRESSOR) 25 mg tablet Take 1 tablet (25 mg total) by mouth 2 (two) times a day. 60 each 12/02/19 25 Active furosemide (LASIX) 20 mg tablet Take 60mg daily in am and 40mg in evening 90 each 12/06/19 Active amLODIPine (NORVASC) 5 mg tablet Take 1 tablet (5 mg total) by mouth 1 (one) time each day. 09/26/19 25 025 Discontinued(St op Taking at Discharge) hydroCHLOROthi azide (HYDRODIURIL) 25 mg tablet Take 1 tablet (25 mg total) by mouth 1 (one) time each day. 11/25/19 25 Discontinued(St op Taking at Discharge) furosemide (LASIX) 20 mg tablet Take 1 tablet (20 mg total) by mouth 2 (two) times daily morning and afternoon. 60 each 12/02/19 25 Discontinued Active Problems Problem Noted Date Diagnosed Date CHF (congestive heart failure) 12/05/2024 Shortness of breath 12/04/2024 Acute congestive heart failu re, unspecified heart failure type 11/30/2024 Bilateral leg edema 11/29/2024 Primary hypertension 11/29/2024 Pure hypercholesterolemia 11/29/2024 CVA (cerebral vascular accident) 11/29/2024 GERD (gastroesophageal reflux disease) BPH (benign prostatic hyperplasia) 11/29/2024 Bladder cancer 11/29/2024 Assessment & Plan (11/29/2024 5:23 PM EDT): Treated by Dr Sandeep GONZALEZ (hyperlipidemia) Resolved Problems Problem Noted Date Diagnosed Date Resolved Date HLD (hyperlipidemia) Encounters Date Type Department Care Team Description 12/03/2024 11:52 PM EDT - 12/05/2024 5:28 PM EDT Hospital Encounter [facility] [address] [place] [id number] Quincy Little MD Surendran, Anupama, MD Shortness of breath (Primary Dx); Acute hypoxic respiratory failure (CMS/HCC); Bilateral lower extremity edema; Acute on chronic diastolic congestive heart failure (CMS/HCC) Discharge Disposition: Home-Health Care [facility] [place] 11/29/2024 11:50 AM EDT - 12/01/2024 1:19 PM EDT Hospital Encounter [facility] [address] [place] [phone] Mark Arriaga MD Alam, Aroosa, MD Kela, Kashyap Devendrabhai, MD Acute congestive heart failure, unspecified heart failure type (CMS/HCC) (Primary Dx); Leg edema; 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); Primary hypertension; Bilateral leg edema Discharge Disposition: Home or Self Care 10/16/2024 Lab Requisition [facility] - Main Lab [address] [facility] [place] [phone] Doc Moore PA Malignant neoplasm of overlapping sites of bladder (CMS/HCC) from Last 3 Months Surgical History Surgery Date Site/Laterality Comments CHOLECYSTECTOMY SPINE SURGERY Medical History Medical History Date Comments Hypertension HLD (hyperlipidemia) History of cholecystectomy H/O arthroscopy of knee HLD (hyperlipidemia) CVA (cerebral vascular accident) (CMS/HCC) BPH (benign prostatic hyperplasia) BPH (benign prostatic hyperplasia) CHF (congestive heart failure) (CMS/HCC) Family History Medical History Relation Name Comments Stroke Brother Relation Name Status Comments Brother Social History Tobacco Use Types Packs/Day Years Used Date Smoking Tobacco: Never Smokeless Tobacco: Never Tobacco Cessation:Counseling Given: Not Answered Alcohol Use Standard Drinks/Week Comments Yes 0 [...] care for your loved ones. For example, early childhood teacher or elderly care for an [...] Not on file Not o n file Obstetrics History Last Filed Vital Signs Vital Sign Reading Time Taken Comments Blood Pressure 124/90 12/05/2024 2:15 PM EDT Pulse 95 12/05/2024 2:15 PM EDT Temperature 36.6 ??C (97.8 ??F) 12/05/2024 2:15 PM ED T Respiratory Rate 18 12/05/2024 2:15 PM EDT Oxygen Saturation 96% 12/05/2024 2:15 PM EDT Inhaled Oxygen Concentration - - Weight 106 kg (233 lb 3.2 oz) 12/05/2024 5:53 A M EDT Height 172.7 cm (5' 8 ) 12/04/2024 12:08 AM EDT Body Mass Index 35.46 12/04/2024 12:08 AM EDT Plan of Treatment Health Maintenance Due Date Last Done Comments Zoster Vaccines (1 of 2) 1954 RSV Immunization Patients 60+ Years Old (1 - 1-dose 75+ series) 2010 Pneumococcal Vaccine: 50+ Years (2 of 2 - PCV) 03/07/2016 03/07/2015 Cholesterol Screening (Lipid Panel) 08/10/2022 Depression Screening 08/10/2022 Medicare Annual Wellness Visit 08/10/2022 COVID-19 Vaccine ( season) 2024 08/16/2021, 11/09/2020, 10/19/2020 Influenza Vaccine (Season Ended) 2025 Social Influencers of Health Screening 12/04/2025 12/04/2024 Falls Risk Assessment 12/05/2025 12/05/2024 Hypertension/CHF/CAD Annual BMP Blood Test 12/05/2025 12/05/2024, 12/04/2024, 12/04/2024, Additional history exists DTaP,Tdap,and Td Vaccines (2 - Td or Tdap) 02/01/2031 02/01/2021 HIB Vaccines Aged Out No longer eligi ble based on patient's age to complete this topic HPV Vaccines Aged Out No longer eligi ble based on patient's age to complete this topic Hepatitis A Vaccines Aged Out No long er eligible based on patient's age to complete this topic Hepatitis B Vaccines Aged Out No long er eligible based on patient's age to complete this topic IPV Vaccines Aged Out No longer eligi ble based on patient's age to complete this topic MMR Vaccines Aged Out No longer eligi ble based on patient's age to complete this topic Meningococcal ACWY Vaccine Aged Out N o longer eligible based on patient's age to complete this topic Meningococcal B Vacine Aged Out No lo nger eligible based on patient's age to complete this topic RSV Immunization Patients Under 20 months Aged Out No longer eligible based on patient's age to complete this topic Varicella Vaccines Aged Out No longer eligible based on patient's age to complete this topic Procedures Procedure Name Priority Date/Time Associated Diagnosis Comments ECG ANNOTATED 12/06/2024 ECG OUTSIDE 12/06/2024 CT ANGIO CHEST WO AND/OR W CONTRAST STAT 12/05/2024 10:24 AM EDT Acute hypoxic respiratory failure (CMS/HCC) CBC WITH AUTO DIFFERENTIAL Routine 12/05/2024 5:40 AM EDT CBC AND DIFFERENTIAL Routine 12/05/2024 5:40 AM EDT BASIC METABOLIC PANEL Routine 12/05/2024 5:40 AM EDT TRANSTHORACIC ECHOCARDIOGRAM (TTE) COMPLETE W/ CONTRAST Routine 12/04/2024 1:17 PM EDT Shortness of breath Acute hypoxic respiratory failure (CMS/HCC) LAVENDER - EDTA Routine 12/04/2024 7:04 AM EDT EXTRA TUBES Routine 12/04/2024 7:04 AM EDT BASIC METABOLIC PANEL Routine 12/04/2024 7:04 AM EDT CBC WITH AUTO DIFFERENTIAL Routine 12/04/2024 5:28 AM EDT CBC AND DIFFERENTIAL Routine 12/04/2024 5:28 AM EDT MAGNESIUM Routine 12/04/2024 5:28 AM EDT THOMAS URINE CULTURE TUBE STAT 12/04/2024 2:14 AM EDT URINALYSIS WITH REFLEX MICROSCOPIC AND CULTURE STAT 12/04/2024 2:14 AM EDT URINALYSIS WITH REFLEX MICROSCOPIC AND CULTURE STAT 12/04/2024 2:14 AM EDT XR CHEST 2 VIEWS STAT 12/04/2024 2:04 AM EDT TROPONIN I HIGH SENSITIVITY STAT 12/04/2024 1:53 AM EDT RESPIRATORY VIRUS PANEL MOLECULAR STUDY STAT 12/04/2024 12:54 AM EDT CBC WITH AUTO DIFFERENTIAL STAT 12/04/2024 12:16 AM EDT B-TYPE NATRIURETIC PEPTIDE STAT 12/04/2024 12:16 AM EDT MAGNESIUM STAT 12/04/2024 12:16 AM EDT LIPASE STAT 12/04/2024 12:16 AM EDT COMPREHENSIVE METABOLIC PANEL STAT 12/04/2024 12:16 AM EDT CBC AND DIFFERENTIAL STAT 12/04/2024 12:16 AM EDT TROPONIN I HIGH SENSITIVITY STAT 12/04/2024 12:16 AM EDT ECG ANNOTATED 12/02/2024 ECG ANNOTATED 12/02/2024 THOMAS URINE CULTURE TUBE STAT 12/01/2024 10:40 AM EDT URINALYSIS WITH REFLEX MICROSCOPIC AND CULTURE STAT 12/01/2024 10:40 AM EDT URINALYSIS WITH REFLEX MICROSCOPIC AND CULTURE STAT 12/01/2024 10:40 AM EDT COMPLETE BLOOD COUNT Routine 12/01/2024 5:36 AM EDT MAGNESIUM Routine 12/01/2024 5:35 AM EDT BASIC METABOLIC PANEL Routine 12/01/2024 5:35 AM EDT PHOSPHORUS Routine 12/01/2024 5:35 AM EDT ECG 12-LEAD STAT 11/30/2024 11:00 AM EDT CBC WITH AUTO DIFFERENTIAL Routine 11/30/2024 5:25 AM EDT CBC AND DIFFERENTIAL Routine 11/30/2024 5:25 AM EDT MAGNESIUM Routine 11/30/2024 5:25 AM EDT BASIC METABOLIC PANEL Routine 11/30/2024 5:25 AM EDT VAS US DUPLEX LOWER EXT VENOUS BILAT Routine 11/29/2024 7:17 PM EDT Acute congestive heart failure, unspecified heart failure type (CMS/HCC) Leg edema 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) Primary hypertension Bilateral leg edema CT ANGIO CHEST WO AND/OR W CONTRAST STAT 11/29/2024 3:13 PM EDT Acute congestive heart failure, unspecified heart failure type (CMS/HCC) TROPONIN I HIGH SENSITIVITY STAT 11/29/2024 1:29 PM EDT XR CHEST 1 VIEW STAT 11/29/2024 12:35 PM EDT ETHANOL Add-On 11/29/2024 11:34 AM EDT MAGNESIUM STAT 11/29/2024 11:34 AM EDT LIPASE STAT 11/29/2024 11:34 AM EDT COMPREHENSIVE METABOLIC PANEL STAT 11/29/2024 11:34 AM EDT CBC WITH AUTO DIFFERENTIAL STAT 11/29/2024 11:34 AM EDT TROPONIN I HIGH SENSITIVITY STAT 11/29/2024 11:34 AM EDT B-TYPE NATRIURETIC PEPTIDE STAT 11/29/2024 11:34 AM EDT CBC AND DIFFERENTIAL STAT 11/29/2024 11:34 AM EDT ECG 12-LEAD STAT 11/29/2024 10:49 AM EDT AP OUTSIDE CONSULT Routine 10/09/2024 12 :00 AM EST Malignant neoplasm of overlapping sites of bladder (CMS/HCC) from Last 3 Months Results * ECG-Outside (12/06/2024) us Provider Onbase MD ECG ORDERABLES Final Result * ECG-Annotated (12/06/2024) Only the most recent of3 resultswithin the time period is included. us Provider Onbase MD ECG ORDERABLES Final Result * CT Angio Chest wo and/or w Contrast (12/05/2024 10:24 AM EDT) Only the most recent of2 resultswithin the time period is included. Anatomical Region Laterality Modality Body Computed Tomogra [...] Signed Date: 12/05/2024 11:23 ET Workstation ID: [id number] Transcribed By: Self Edit Transcribed Date: 12/05/2024 11:18 ET Narrative 12/05/2024 11:23 AM EDT INDICATION: Chest pain and shortness of breath Technique: CTA performed of the chest using pulmonary angiographic protocol with a total of 90 mL of Isovue-370 intravenously without incident. 3D multiplanar reconstructions performed on a computer workstation. Scanner: [email or web address] LightSpeed 64 slice VCT Dose reduction technique: ASIR [...] There is no evidence of lymphadenopathy. Lung scott are clear. There are no infiltrates, effusions, nodules or masses. Mild dependent atelectatic changes. Bony structures demonstrate osteopenia and mild degenerative changes. Procedure Note Oswaldo Kahn MD - 12/05/2024 INDICATION: Chest pain and shortness of breath Technique: CTA performed of the chest using pulmonary angiographicprotocol with a total of 90 mL of Isovue-370 intravenously withoutincident. 3D multiplanar reconstructions performed on a computerworkstation. Scanner: [email or web address] LightSpeed 64 slice VCT Dose reduction technique: ASIR [...] There is no evidence of lymphadenopathy. Lung scott are clear. There are no infiltrates, effusions, [...] Signed Date: 12/05/2024 11:23 ET Workstation ID: [id number] Transcribed By: Self Edit Transcribed Date: 12/05/2024 11:18 ET us Jessi Pearl MD IMG CT PROCEDURES Final Res ult * (ABNORMAL) CBC auto differential (12/05/2024 5:40 AM EDT) Only the most recent of5 resultswithin the time period is included. WBC 5.5 4.8 - 10.8 K/mcL LAB HEMETOLOGY [facility] RBC 4.50 4.50 - 5.50 M/mcL LAB HEMETOLOGY METHOD 12/05/2024 6:31 AM [facility] Hemoglobin 12.6(L) 13.5 - 17.5 g/dL LAB HEMETOLOGY METHOD 12/05/2024 6:31 AM [facility] Hematocrit 40.0(L) 42.0 - 54.0 % LAB HEMETOLOGY METHOD 12/05/2024 6:31 AM [facility] MCV 88.5 79.0 - 98.0 FL LAB HEMETOLOGY METHOD 12/05/2024 6:31 AM [facility] MCH 27.9 27.0 - 32.0 pcg LAB HEMETOLOGY METHOD 12/05/2024 6:31 AM [facility] MCHC 31.5(L) 32.0 - 37.0 g/dL LAB HEMETOLOGY METHOD 12/05/2024 6:31 AM [facility] RDW 14.9 11.0 - 15.0 % LAB HEMETOLOGY METHOD 12/05/2024 6:31 AM [facility] Platelets 248 130 - 400 K/mcL LAB HEMETOLOGY METHOD 12/05/2024 6:31 AM [facility] MPV 10.3 7.0 - 11.0 FL LAB HEMETOLOGY METHOD 12/05/2024 6:31 AM [facility] NRBC 0.0 <1.0 % LAB HEMETOLOGY METHOD 12/05/2024 6:31 AM [facility] NRBC Absolute 0.00 <0.10 K/mcL LAB HEMETOLOGY METHOD 12/05/2024 6:31 AM [facility] Neutrophils Relative 59.6 % LAB HEMETOLOGY METHOD 12/05/2024 6:31 AM [facility] Lymphocytes Relative 19.9 % LAB HEMETOLOGY METHOD 12/05/2024 6:31 AM [facility] Monocytes Relative 16.4 % LAB HEMETOLOGY METHOD 12/05/2024 6:31 AM [facility] Eosinophils Relative 2.7 % LAB HEMETOLOGY METHOD 12/05/2024 6:31 AM [facility] Basophils Relative 0.9 % LAB HEMETOLOGY METHOD 12/05/2024 6:31 AM [facility] Immature Granulocytes Relative 0.5 % LAB HEMETOLOGY METHOD 12/05/2024 6:31 AM [facility] Neutrophils Absolute 3.27 1.50 - 7.00 K/mcL LAB HEMETOLOGY METHOD 12/05/2024 6:31 AM [facility] Lymphocytes Absolute 1.09 1.00 - 5.00 K/mcL LAB HEMETOLOGY METHOD 12/05/2024 6:31 AM EDT [facility] Monocytes Absolute 0.90 0.20 - 1.00 K/mcL LAB HEMETOLOGY METHOD 12/05/2024 6:31 AM EDT [facility] Eosinophils Absolute 0.15 0.00 - 0.50 K/mcL LAB HEMETOLOGY METHOD 12/05/2024 6:31 AM EDT [facility] Basophils Absolute 0.05 0.00 - 0.20 K/mcL LAB HEMETOLOGY METHOD 12/05/2024 6:31 AM EDT [facility] Immature Granulocytes Absolute 0.03 0.00 - 0.03 K/mcL LAB HEMETOLOGY METHOD 12/05/2024 6:31 AM EDT [facility] Blood Venous blood specimen / Unknown Venipuncture / Unknown 12/05/2024 5:40 AM EDT 12/05/2024 6:17 AM EDT Jessi Pearl MD LAB BLOOD ORDERABLES Final Result [facility] [address] [place] [address], * (ABNORMAL) Basic metabolic panel (12/05/2024 5:40 AM EDT) Only the most recent of4 resultswithin the time period is included. Sodium 138 133 - 145 mmol/L LAB CHEMISTRY METHOD 12/05/2024 6:58 AM EDT [facility] Potassium 3.9 3.5 - 5.5 mmol/L LAB CHEMISTRY METHOD 12/05/2024 6:58 AM EDT [facility] Chloride 102 96 - 110 mmol/L LAB CHEMISTRY METHOD 12/05/2024 6:58 AM EDT [facility] CO2 31 21 - 32 mmol/L LAB CHEMISTRY METHOD 12/05/2024 6:58 AM EDT [facility] Anion Gap 5 3 - 11 LAB CHEMISTRY METHOD 12/05/2024 6:58 AM [facility] Glucose 109(H) 70 - 100 mg/dL LAB CHEMISTRY METHOD 12/05/2024 6:58 AM [facility] BUN 13 5 - 25 mg/dL LAB CHEMISTRY METHOD 12/05/2024 6:58 AM [facility] Creatinine 0.89 0.70 - 1.30 mg/dL LAB CHEMISTRY METHOD 12/05/2024 6:58 AM EDT [facility] eGFR 82 >=60 mL/min/1. 73m2 LAB CHEMISTRY METHOD 12/05/2024 6:58 [facility] Comment:Calculation based on the??Chronic Kidney Disease Epidemiology Collaboration (CKD-EPI) equation refit??without adjustment for race. BUN/Creatinine Ratio 14.6 LAB CHEMISTRY METHOD 12/05/2024 6:58 AM [facility] Calcium 9.0 8.5 - 10.5 mg/dL LAB CHEMISTRY METHOD 12/05/2024 6:58 AM [facility] Blood Venous blood specimen / Unknown Venipuncture / Unknown 12/05/2024 5:40 AM EDT 12/05/2024 6:17 AM EDT us Jessi Pearl MD LAB BLOOD ORDERABLES Final Result [facility] [address] [place] [address], * (ABNORMAL) TRANSTHORACIC ECHOCARDIOGRAM (TTE) COMPLETE W/ CONTRAST (12/04/2024 1:17 PM EDT) Left Atrium Minor [place] 5.9 cm CV PACS Left Atrium Major [place] 6.8 cm CV PACS LA Area Sys [...] Volume 75 mL CV PACS MV Deceleration [place] 3.1 m/s2 CV PACS E Wave Deceleration [...] S' 18 cm/s CV PACS RA Major [place] 5.7 cm CV PACS RA Major [place] Index 2.6 2.1 - 2.7 cm/m2 CV [...] Definity contrast was given to enhance imaging. us Audrey GRAF CV ECHO PROCEDURES Carolyn l Result * Lavender tube (12/04/2024 7:04 AM EDT) Extra Tube Hold for add-ons. 12/04/2024 9:01 AM EDT [facility] Comment:Auto resulted. Blood Venous blood specimen / Unknown Venipuncture / Unknown 12/04/2024 7:04 AM EDT 12/04/2024 7:20 AM EDT us Quincy Little MD LAB BLOOD ORDERABLES Carolyn l Result [facility] [address] [place] [address], [place] [phone] * Magnesium (12/04/2024 5:28 AM EDT) Only the most recent of5 resultswithin the time period is included. [facility] Magnesium 2.3 1.9 - 2.6 mg/dL LAB CHEMISTRY METHOD 12/04/2024 7:06 AM EDT [facility] Blood Venous blood specimen / Unknown Venipuncture / Unknown 12/04/2024 5:28 AM EDT 12/04/2024 6:13 AM EDT Audrey GRAF LAB BLOOD ORDERABLES Fi nal Result [facility] [address] [place] [address], [place] [phone] * (ABNORMAL) Urinalysis with reflex microscopic and culture (12/04/2024 2:14 AM EDT) Only the most recent of2 resultswithin the time period is included. [facility] Specific Ronan Urine 1.024 1.003 - 1.030 LAB URINALYSIS - AUTOMATED METHOD 12/04/2024 2:26 AM [facility] pH, Urine 5.5 5.0 - 8.0 pH LAB URINALYSIS - AUTOMATED METHOD 12/04/2024 2:26 AM [facility] Leukocytes, Urine Negative Negative LAB URINALYSIS - AUTOMATED METHOD 12/04/2024 2:26 AM [facility] Nitrite, Urine Negative Negative LAB URINALYSIS - AUTOMATED METHOD 12/04/2024 2:26 AM T [facility] Protein, Urine Negative <=Trace mg/dL LAB URINALYSIS - AUTOMATED METHOD 12/04/2024 2:26 AM [facility] Glucose, Urine Negative Negative mg/dL LAB URINALYSIS - AUTOMATED METHOD 12/04/2024 2:26 AM EDT [facility] Ketones, Urine Trace(A) Negative mg/dL LAB URINALYSIS - AUTOMATED METHOD 12/04/2024 2:26 AM EDT [facility] Urobilinogen, Urine 0.2 0.2 - 1.0 mg/dL LAB URINALYSIS - AUTOMATED METHOD 12/04/2024 2:26 AM EDT [facility] Bilirubin, Urine Negative Negative LAB URINALYSIS - AUTOMATED METHOD 12/04/2024 2:26 AM EDT [facility] Blood, Urine Negative Negative LAB URINALYSIS - AUTOMATED METHOD 12/04/2024 2:26 AM EDT [facility] Urine Urine specimen obtained by clean catch procedure / Unknown Non-blood Collection / Unknown 12/04/2024 2:14 AM EDT 12/04/2024 2:22 AM EDT Precious GRAF LAB URINE ORDERABLES Final Resu lt Performing Organization Address [facility]/ZIP Co de Phone Number [facility] [address] [place] [address], [place] [phone] * Thomas urine culture tube (12/04/2024 2:14 AM EDT) Only the most recent of2 resultswithin the time period is included. Extra Tube Hold for add-ons. 12/04/2024 4:01 AM EDT [facility] Comment:Auto resulted. Urine Urine specimen obtained by clean catch procedure / Unknown Non-blood Collection / Unknown 12/04/2024 2:14 AM EDT 12/04/2024 2:22 AM EDT us Precious GRAF LAB URINE ORDERABLES Final Resu lt Performing Organization Address [facility]/ZIP Co de Phone Number [facility] [address] [place] [address], [place] [phone] * XR Chest 2 Views (12/04/2024 2:04 AM EDT) Anatomical Region Laterality Modality Body Radiographic Brynn ging 12/04/2024 8:53 AM EDT Impressions 12/04/2024 8:55 AM EDT Impression: 1. Stable mild cardiomegaly. 2. Large hiatal hernia. 3. Mild bibasilar subsegmental atelectasis. Telerad HOMAR ([id number]) -------- FINAL REPORT -------- Dictated By: Lovely Henderson Dictated Date: 12/04/2024 08:53 ET Assigned Physician: Lovely Henderson Reviewed and Electronically Signed By: Lovely Henderson Signed Date: 12/04/2024 08:55 ET Workstation ID: [id number] Transcribed By: Self Edit Transcribed Date: 12/04/2024 [...] 3. Mild bibasilar subsegmental atelectasis. Telerad HOMAR ([id number]) -------- FINAL REPORT -------- Dictated By: Lovely Henderson Dictated Date: 12/04/2024 08:53 ET Assigned Physician: Lovely Henderson Reviewed and Electronically Signed By: Lovely Henderson Signed Date: 12/04/2024 08:55 ET Workstation ID: [id number] Transcribed By: Self Edit Transcribed Date: 12/04/2024 08:53 ET Amaury Gallagher MD IMG XR PROCEDURES Final Result * Troponin I high sensitivity (12/04/2024 1:53 AM EDT) Only the most recent of4 resultswithin the time period is included. High Sensitivity Troponin I 8 <=79 ng/L LAB CHEMISTRY METHOD 12/04/2024 2:27 AM EDT [facility] Blood Venous blood specimen / Unknown Venipuncture / Unknown 12/04/2024 1:53 AM EDT 12/04/2024 1:55 AM EDT Narrative [facility] - 12/04/2024 2:27 AM EDT High levels of biotin in samples may falsely decrease hsTroponin values. ??Use caution when interpreting hsTroponin results in patients taking biotin who exhibit renal impairment (eGFR <60) or in patients taking more than 20 mg/day of biotin. us Amaury Gallagher MD LAB BLOOD ORDERABLES Final Resu lt [facility] [address] [place] [address], [place] [phone] * Respiratory virus panel molecular study (12/04/2024 12:54 AM EDT) [facility] Adenovirus Detection by PCR Not Detected Not Detected LAB MICROBIOLOGY METHOD 12/04/2024 2:56 AM EDT [facility] Influenza A PCR Not Detected Not Detected LAB MICROBIOLOGY METHOD 12/04/2024 2:56 AM EDT [facility] Influenza B PCR Not Detected Not Detected LAB MICROBIOLOGY METHOD 12/04/2024 2:56 AM EDT [facility] Coronavirus 229E Not Detected Not Detected LAB MICROBIOLOGY METHOD 12/04/2024 2:56 AM EDT [facility] Coronavirus HKU1 Not Detected Not Detected LAB MICROBIOLOGY METHOD 12/04/2024 2:56 AM EDT [facility] Coronavirus OC43 Not Detected Not Detected LAB MICROBIOLOGY METHOD 12/04/2024 2:56 AM EDT [facility] Coronavirus NL63 Not Detected Not Detected LAB MICROBIOLOGY METHOD 12/04/2024 2:56 AM EDT [facility] Parainfluenza Virus 1 Not Detected Not Detected LAB MICROBIOLOGY METHOD 12/04/2024 2:56 AM EDT [facility] Parainfluenza Virus 2 Not Detected Not Detected LAB MICROBIOLOGY METHOD 12/04/2024 2:56 AM EDT [facility] Parainfluenza Virus 3 Not Detected Not Detected LAB MICROBIOLOGY METHOD 12/04/2024 2:56 AM EDT [facility] Parainfluenza Virus 4 Not Detected Not Detected LAB MICROBIOLOGY METHOD 12/04/2024 2:56 AM EDT [facility] RSV PCR Not Detected Not Detected LAB MICROBIOLOGY METHOD 12/04/2024 2:56 AM EDT [facility] Human Metapneumovirus A and B Not Detected Not Detected LAB MICROBIOLOGY METHOD 12/04/2024 2:56 AM EDT [facility] Rhinovirus/Entero virus Not Detected Not Detected LAB MICROBIOLOGY METHOD 12/04/2024 2:56 AM EDT [facility] Bordetella pertussis Not Detected Not Detected LAB MICROBIOLOGY METHOD 12/04/2024 2:56 AM EDT [facility] Bordetella parapertussis Not Detected Not Detected LAB MICROBIOLOGY METHOD 12/04/2024 2:56 AM EDT [facility] Mycoplasma pneumo by PCR Not Detected Not Detected LAB MICROBIOLOGY METHOD 12/04/2024 2:56 AM EDT [facility] Chlamydia pneumoniae Not Detected Not Detected LAB MICROBIOLOGY METHOD 12/04/2024 2:56 AM EDT [facility] SARS COV-2 Not Detected Not Detected LAB MICROBIOLOGY METHOD 12/04/2024 2:56 AM EDT [facility] Swab Both anterior nares / Unknown Non-blood Collection / Unknown 12/04/2024 12:54 AM EDT 12/04/2024 1:58 AM EDT [facility] - 12/04/2024 2:56 AM EDT Testing was performed using the [employer] Respiratory Pathogen PCR Assay. All results must [...] MICROBIOLOGY - GENERAL SHANI DUDLEY Final Result [facility] [address] [place] [address], * B-type natriuretic peptide (12/04/2024 12:16 AM EDT) Only the most recent of2 resultswithin the time period is included. BNP 39 <=100 pcg/mL LAB CHEMISTRY METHOD 12/04/2024 1:01 AM EDT [facility] Blood Venous blood specimen / Unknown Venipuncture / Unknown 12/04/2024 12:16 AM EDT 12/04/2024 12:22 AM EDT us Amaury Gallagher MD LAB BLOOD ORDERABLES Final Resu lt Performing Organization Address [facility] Co de Phone Number [facility] [address] [place] [address], [place] [phone] * Lipase (12/04/2024 12:16 AM EDT) Only the most recent of2 resultswithin the time period is included. Lipase 24 13 - 75 unit/L LAB CHEMISTRY METHOD 12/04/2024 12:46 AM EDT [facility] Blood Venous blood specimen / Unknown Venipuncture / Unknown 12/04/2024 12:16 AM EDT 12/04/2024 12:22 AM EDT us Amaury Gallagher MD LAB BLOOD ORDERABLES Final Resu lt Performing Organization Address [facility] de Phone Number [facility] [address] [place] [address], [place] [phone] * (ABNORMAL) Comprehensive metabolic panel (12/04/2024 12:16 AM EDT) Only the most recent of2 resultswithin the time period is included. Sodium 141 133 - 145 mmol/L LAB CHEMISTRY METHOD 12/04/2024 12:54 AM EDT [facility] Potassium 4.0 3.5 - 5.5 mmol/L LAB CHEMISTRY METHOD 12/04/2024 12:54 AM EDT [facility] Chloride 104 96 - 110 mmol/L LAB CHEMISTRY METHOD 12/04/2024 12:54 AM EDT [facility] CO2 31 21 - 32 mmol/L LAB CHEMISTRY METHOD 12/04/2024 12:54 AM EDT [facility] Anion Gap 6 3 - 11 LAB CHEMISTRY METHOD 12/04/2024 12:54 AM [facility] Glucose 116(H) 70 - 100 mg/dL LAB CHEMISTRY METHOD 12/04/2024 12:54 AM [facility] BUN 20 5 - 25 mg/dL LAB CHEMISTRY METHOD 12/04/2024 12:54 AM [facility] Creatinine 0.89 0.70 - 1.30 mg/dL LAB CHEMISTRY METHOD 12/04/2024 12:54 AM [facility] eGFR 82 >=60 mL/min/1. 73m2 LAB CHEMISTRY METHOD 12/04/2024 12:54 AM [facility] Comment:Calculation based on the??Chronic Kidney Disease Epidemiology Collaboration (CKD-EPI) equation refit??without adjustment for race. BUN/Creatinine Ratio 22.5 LAB CHEMISTRY METHOD 12/04/2024 12:54 AM [facility] Calcium 8.6 8.5 - 10.5 mg/dL LAB CHEMISTRY METHOD 12/04/2024 12:54 AM [facility] AST (SGOT) 82(H) 10 - 42 unit/L LAB CHEMISTRY METHOD 12/04/2024 12:54 AM [facility] ALT (SGPT) 90(H) 10 - 60 unit/L LAB CHEMISTRY METHOD 12/04/2024 12:54 AM [facility] Alkaline Phosphatase 75 42 - 121 unit/L LAB CHEMISTRY METHOD 12/04/2024 12:54 AM [facility] Total Protein 6.2 6.0 - 8.0 g/dL LAB CHEMISTRY METHOD 12/04/2024 12:54 AM [facility] Albumin 3.3 3.2 - 5.0 g/dL LAB CHEMISTRY METHOD 12/04/2024 12:54 AM [facility] Total Bilirubin 0.5 0.0 - 1.4 mg/dL LAB CHEMISTRY METHOD 12/04/2024 12:54 AM EDT [facility] Blood Venous blood specimen / Unknown Venipuncture / Unknown 12/04/2024 12:16 AM EDT 12/04/2024 12:22 AM EDT us Amaury Gallagher MD LAB BLOOD ORDERABLES Final Resu lt [facility] [address] [place] [address], * (ABNORMAL) Complete blood count (12/01/2024 5:36 AM EDT) WBC 6.3 4.8 - 10.8 K/mcL LAB HEMETOLOGY METHOD 12/01/2024 6:49 AM [facility] RBC 4.60 4.50 - 5.50 M/mcL LAB HEMETOLOGY METHOD 12/01/2024 6:49 AM EDT [facility] Hemoglobin 12.9(L) 13.5 - 17.5 g/dL LAB HEMETOLOGY METHOD 12/01/2024 6:49 AM [facility] Hematocrit 39.6(L) 42.0 - 54.0 % LAB HEMETOLOGY METHOD 12/01/2024 6:49 AM [facility] MCV 86.1 79.0 - 98.0 FL LAB HEMETOLOGY METHOD 12/01/2024 6:49 AM EDT [facility] MCH 28.0 27.0 - 32.0 pcg LAB HEMETOLOGY METHOD 12/01/2024 6:49 AM T [facility] MCHC 32.6 32.0 - 37.0 g/dL LAB HEMETOLOGY METHOD 12/01/2024 6:49 AM [facility] RDW 15.3(H) 11.0 - 15.0 % LAB HEMETOLOGY METHOD 12/01/2024 6:49 AM EDT [facility] Platelets 234 130 - 400 K/mcL LAB HEMETOLOGY METHOD 12/01/2024 6:49 AM EDT [facility] MPV 10.9 7.0 - 11.0 FL LAB HEMETOLOGY METHOD 12/01/2024 6:49 AM EDT [facility] NRBC 0.0 <1.0 % LAB HEMETOLOGY METHOD 12/01/2024 6:49 AM EDT [facility] NRBC Absolute 0.00 <0.10 K/mcL LAB HEMETOLOGY METHOD 12/01/2024 6:49 AM EDT [facility] Blood Venous blood specimen / Unknown Venipuncture / Unknown 12/01/2024 5:36 AM EDT 12/01/2024 6:13 AM EDT us Sam Bone MD LAB BLOOD ORDERABLE S Final Result Performing Organization Address City/[facility]/ZIP Co de Phone Number [facility] [address] [place] [address], [place] [phone] * Phosphorus (12/01/2024 5:35 AM EDT) [facility] Signature Phosphorus 3.5 2.5 - 4.5 mg/dL LAB CHEMISTRY METHOD 12/01/2024 6:49 AM EDT [facility] Blood Venous blood specimen / Unknown Venipuncture / Unknown 12/01/2024 5:35 AM EDT 12/01/2024 6:12 AM EDT us Sam Bone MD LAB BLOOD ORDERABLE S Final Result Performing Organization Address City/[facility]/ZIP Co de Phone Number [facility] [address] [place] [address], [place] [phone] * ECG 12 lead (11/30/2024 11:00 AM EDT) Only the most recent of2 resultswithin the time period is included. Ventricular Rate ECG 76 BPM GEMUSE Atrial Rate 76 BPM GEMUSE P-R Interval 232 ms GEMUSE QRS Duration 102 ms GEMUSE Q-T Interval 400 ms GEMUSE QTc 450 ms GEMUSE P Wave [place] -9 degrees GEMUSE R [place] -26 degrees GEMUSE T [place] 3 degrees GEMUSE ECG Interpretation Sinus rhythm with 1st degree A-V block with Premature atrial complexes Otherwise normal ECG When compared with ECG of 29-NOV-2024 10:49, Premature atrial complexes are now Present Confirmed by VIVIAN DAUGHERTY ([id number]) on 12/01/2024 4:33:25 PM GEMUSE 11/30/2024 11:0 0 AM EDT 12/01/2024 4:33 PM EDT Sam Bone MD ECG ORDERABLES Fin al Result GEMUSE * Vascular US duplex lower extremity venous bilateral (11/29/2024 7:17 PM EDT) Anatomical Region Laterality Modality Vascular, Abdomen Ultrasound 11/30/2024 10:3 2 AM EDT Impressions 11/30/2024 10:33 AM EDT Impression: 1. No evidence of deep vein thrombosis in the femoral-popliteal venous segments of both lower extremities. 2. Left popliteal cyst. Telerad HOMAR ([id number]) -------- FINAL REPORT -------- Dictated By: Lovely Henderson Dictated Date: 11/30/2024 10:32 ET Assigned Physician: Lovely Henderson Reviewed and Electronically Signed By: Lovely Henderson Signed Date: 11/30/2024 10:33 ET Workstation ID: [id number] Transcribed By: Self Edit Transcribed Date: 11/30/2024 10:32 ET Narrative 11/30/2024 10:33 AM EDT History: Bilateral lower extremity swelling. Fever. Findings: Duplex and color Doppler imaging of the deep venous system of both lower extremities was performed from the inguinal ligaments to the popliteal fossa. The common femoral, femoral and popliteal veins are patent and compress completely. Normal spontaneous and phasic venous flow is demonstrated with Doppler. There is normal flow augmentation with calf compression bilaterally. The deep calf veins are poorly seen due to patient body habitus. A popliteal cyst is noted on the left, measuring 5.5 cm in length by 1.1 cm in depth by 3.6 cm in width. Procedure Note Lovely Henderson MD - 11/30/2024 History: Bilateral lower extremity swelling. Fever. Findings: Duplex and color Doppler imaging of the deep venous system of both lowerextremities was performed from the inguinal ligaments to the poplitealfossa. The common femoral, femoral and popliteal veins are patent andcompress completely. Normal spontaneous and phasic venous flow isdemonstrated with Doppler. There is normal flow augmentation with calfcompression bilaterally. The deep calf veins are poorly seen due to patient body habitus. A popliteal cyst is noted on the left, measuring 5.5 cm in length by 1.1cm in depth by 3.6 cm in width. IMPRESSION: Impression: 1. No evidence of deep vein thrombosis in the femoral-popliteal venoussegments of both lower extremities. 2. Left popliteal cyst. Telerad [place] ([id number]) -------- FINAL REPORT -------- Dictated By: Lovely Henderson Dictated Date: 11/30/2024 10:32 ET Assigned Physician: Lovely Hednerson Reviewed and Electronically Signed By: Lovely Henderson Signed Date: 11/30/2024 10:33 ET Workstation ID: [id number] Transcribed By: Self Edit Transcribed Date: 11/30/2024 10:32 ET us Kenia Mcgowan NP CV VASCULAR PROCEDURES Final Re sult * XR Chest 1 View (11/29/2024 12:35 PM EDT) Anatomical Region Laterality Modality Body Radiographic Brynn ging 11/29/2024 1:17 PM EDT Impressions 11/29/2024 1:17 PM EDT FINDINGS/IMPRESSION: Hypoventilatory examination. ??No consolidation or effusion. ??Possible hiatal hernia. -------- FINAL REPORT -------- Dictated By: Boyd Simmons Dictated Date: 11/29/2024 13:17 ET Assigned Physician: Boyd Simmons Reviewed and Electronically Signed By: Boyd Simmons Signed Date: 11/29/2024 13:17 ET Workstation ID: [id number] Transcribed By: Self Edit Transcribed Date: 11/29/2024 13:17 ET Narrative 11/29/2024 1:17 PM EDT XR CHEST 1 VIEW INDICATION: cough TECHNIQUE: XR CHEST 1 VIEW COMPARISON: No priors available. Procedure Note Boyd Simmons MD - 11/29/2024 XR CHEST 1 VIEW INDICATION: cough TECHNIQUE: XR CHEST 1 VIEW COMPARISON: No priors available. IMPRESSION: FINDINGS/IMPRESSION: Hypoventilatory examination. No consolidation oreffusion. Possible hiatal hernia. -------- FINAL REPORT -------- Dictated By: Boyd Simmons Dictated Date: 11/29/2024 13:17 ET Assigned Physician: Boyd Simmons Reviewed and Electronically Signed By: Boyd Simmons Signed Date: 11/29/2024 13:17 ET Workstation ID: [id number] Transcribed By: Self Edit Transcribed Date: 11/29/2024 13:17 ET us Clifford GRAF IMG XR PROCEDURES Final R esult * Ethanol (11/29/2024 11:34 AM EDT) Ethanol Level <3 0 - 10 mg/dL LAB CHEMISTRY METHOD 11/29/2024 6:24 PM EDT [facility] Blood Venous blood specimen / Unknown Venipuncture / Unknown 11/29/2024 11:34 AM EDT 11/29/2024 12:17 PM EDT us Kenia Mcgowan NP LAB BLOOD ORDERABLES Final Resu lt [facility] [address] [place] [address], [place] [phone] * Anatomic pathology outside consult (10/09/2024 12:00 AM EST) Final Diagnosis A. 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 Note: Abnormal results are considered suspicious for urothelial carcinoma. 10/24/2024 3:37 PM EST [facility] Clinical Information Malignant neoplasm of overlapping sites of bladder C67.8 Urine Cytology/FISH (now) 10/24/2024 3:37 PM EST [facility] Gross Description A. Urine, Voided, ([id number]): Received one ThinPrep slide for cytology and one ThinPrep slide for UroVysion FISH 10/24/2024 3:37 PM EST [facility] Disclaimer Unless otherwise specified, all tissue is 10% NB formalin fixed and paraffin embedded. Technical pathology services provided by [facility] at [id number], [place] [address] (CLIA #[id number]/Carolina Au MD, Frame And Scrap Crusher) 10/24/2024 3:37 PM EST [facility] Tissue Urine specimen from urethra / Unknown 10/09/2024 10/16/2024 11:07 AM EST us Doc GRAF LAB PATHOLOGY ORDERAB LES Final Result [facility] [address] [place] [address], from Last 3 Months Insurance MEDICARE [facility] Advance Directives Documents on File Type Date Recorded Patient Mill Helper Expl anation Advance Directives and Livin g Will 12/09/2024 9:25 AM PROXY * Full Code - Default (Latest Code Status on File) Date Activated Date Inactivated Comments 12/04/2024 4:17 AM 12/05/2024 7:28 PM This is orde r is used when code status has not been discussed with the patient, or code status is otherwise unknown/unconfirmed To update the patient's code status, place a code status order. Do not modify or discontinue any currently active code status orders. * Full Code - Default Date Activated Date Inactivated Comments 11/29/2024 3:56 PM 12/01/2024 3:19 PM This is orde r is used when code status has not been discussed with the patient, or code status is otherwise unknown/unconfirmed To update the patient's code status, place a code status order. Do not modify or discontinue any currently active code status orders. Healthcare Agents on File Name Relationship Healthcare Agent Thangnh p Communication Lucita Cross Daughter Health Care Agent Care Teams Estimator Printing Relationship Specialty Start Date End Date Sarah Ponce NP [address] [facility] [address] [place], [place] PCP - General Nurse Practitioner 11/29/24
--- OUTSIDE RECORDS SUMMARY | 2024-12-10 15:25 | XMS_ITS | Encounter Summary ---
Author Organization [facility] Address [address] [place] [address] Care Team Providers Care Respooler Name Role Phone Ponce, Sarah LOPEZ Primary Care Provider [phone] Encounter Details Date Type Department Care Team (Late st Contact Info) Description 10/16/2024 Lab Requisition [facility] - Main Lab [address] [facility] [place] [address] Doc Moore PA [address] [place] [address] Malignant neoplasm of overlapping sites of bladder (CMS/HCC) Social History Tobacco Use Types Packs/Day Years Used Date Smoking Tobacco: Never Assessed Sex and Gender Information Value Date Recorded Sex Assigned at Male 11/29/2024 12:33 PM EDT Legal Sex Male 2:43 PM EST Gender Identity Male 11/29/2024 12:33 PM EDT Sexual Orientation Straight 11/29/2024 12 :33 PM EDT documented as of this encounter Plan of Treatment Not on file documented as of this encounter Procedures Procedure Name Priority Date/Time Associated Diagnosis Comments AP OUTSIDE CONSULT Routine 10/09/2024 12 :00 AM EST Malignant neoplasm of overlapping sites of bladder (CMS/HCC) documented in this encounter Results * Anatomic pathology outside consult (10/09/2024 12:00 AM EST) Final Diagnosis A. Urine, Voided, ([id number]): HIGH GRADE UROTHELIAL CARCINOMA Results of UroVysion fluorescence in situ hybridization (FISH) testing: CEP3: Abnormal CEP7: Abnormal CEP17: Abnormal LSI 9p21: Normal Interpretation: Abnormal profile Controls stained appropriately. Note: Abnormal results are considered suspicious for urothelial carcinoma. 10/24/2024 3:37 PM EST [facility] Clinical Information Malignant neoplasm of overlapping sites of bladder C67.8 Urine Cytology/FISH (now) 10/24/2024 3:37 PM EST [facility] Gross Description A. Urine, Voided, ([id number]): Received one ThinPrep slide for cytology and one ThinPrep slide for UroVysion FISH 10/24/2024 3:37 PM EST [facility] Disclaimer Unless otherwise specified, all tissue is 10% NB formalin fixed and paraffin embedded. Technical pathology services provided by [facility] at [address], [place] [address] (CLIA #[id number]/Carolina Au MD, Paper Cleaner) 10/24/2024 3:37 PM EST [facility] Tissue Urine specimen from urethra / Unknown 10/09/2024 10/16/2024 11:07 AM EST Doc GRAF LAB PATHOLOGY ORDERAB LES Final Result [facility] [address] [place] [address], documented in this encounter Visit Diagnoses Diagnosis Malignant neoplasm of overlapping sites of bladder (CMS/HCC) documented in this encounter Additional Health Concerns Infection Onset Date Last Indicated Resolved Time Respiratory Rule-Out 12/04/2024 12/04/2024 025 2:56 AM EDT COVID-19 Rule-Out 12/04/2024 12/04/2024 12/04/2024 2:56 AM EDT documented as of this encounter Care Teams Respooler Relationship Specialty Start Date End Date Sarah Ponce NP [address] [facility] [address] [place], [place] PCP - General Nurse Practitioner 11/29/24 documented as of this encounter
== END 2024-12-10 13:31 | disposition home or self-care (01) ==
PROVIDERS: PCP Internal Medicine; Visit Provider Orthopaedic Surgery
DX: M25.811 Other specified joint disorders, right shoulder (principal); M25.511 Pain in right shoulder
CPT/HCPCS: 20610; 99213

== ENCOUNTER → 2024-12-10 13:08 | Outpatient (BNVA) | payer MEDICARE, SELFPAY | PROVIDERS: PCP Internal Medicine; Visit Provider Orthopaedic Surgery | DX: M25.811 Other specified joint disorders, right shoulder (principal); M25.511 Pain in right shoulder | CPT/HCPCS: 20610; 99212; J1010; J2003 ==

== ENCOUNTER 2025-03-26 13:18 | Outpatient (AMB) | payer MEDICARE, SELFPAY ==
--- NOTE | 2025-03-26 13:35 | A.OFFVIS_ITS ---
Vital Signs 03/26/25 13:36 Height 5 ft 7 in Weight 230 lb BMI 36.0 Intake Visit Reasons: OV- Right shoulder pain, last inj 12/10/24 Intake Note: Juan is an 89 year old male who presents with complaints of right shoulder pain. He describes his pain as sharp in nature. He denies any weakness. He has tried Tylenol and anti-inflammatory medicines which gave him minimal relief. He has also done physical therapy exercises which aggravated his pain. He has had cortisone injections in the past which gave him fairly good relief. He wishes to hold off on surgery if at all possible. Allergies No Known Allergies Allergy (Verified 03/26/25 13:47) Medication List - Last Reconciled 03/27/25 by Cedric Graves MD amlodipine 5 mg PO DAILY aspirin (Adult Low Dose Aspirin) 81 mg PO DAILY Held on 07/11/24. Instructions: Resume on 07/18/24. You may resume 1 week after surgery atorvastatin 40 mg PO DAILY cholecalciferol (vitamin D3) (Vitamin D3) 25 mcg PO DAILY clopidogrel 75 mg PO DAILY Held on 07/11/24. Instructions: Resume on 07/18/24. you may resume plavix one week after surgery docusate sodium (Colace) 100 mg PO BID hydrochlorothiazide 25 mg PO DAILY multivitamin 1 tab PO DAILY omeprazole 20 mg PO DAILY oxybutynin chloride ER 10 mg PO DAILY tamsulosin 0.4 mg PO DAILY PFSH Medical History (Updated 12/10/24 @ 14:00 by Cedric Graves MD) Diverticulosis BPH (benign prostatic hyperplasia) [place] (hard of hearing) Snores OAB (overactive bladder) Hx of bladder cancer (~2018) Arthritis Back pain GERD (gastroesophageal reflux disease) Hx-TIA (transient ischemic attack) (~2016) HLD (hyperlipidemia) HTN (hypertension) Surgical History (Updated 06/27/24 @ 09:31 by Soha Ch RN) Hx of arthroscopic knee surgery Hx of bilateral cataract extraction Hx laparoscopic cholecystectomy (~2013) Hx of cystoscopy (~2019) Hx of colonoscopy Social History Household Members: Spouse Housing: House Are you a primary hemodialysis patient care specialist to a significant other at home: No Do you presently have visiting nurse or other home services: No Alcohol intake: current Alcohol intake frequency: holidays/special occasions only Patient Tobacco Use Status: Never used Tobacco Physical Exam Vital Signs: BMI result Body Mass Index 36.0 Const Other: Well-nourished well-developed very friendly male awake alert and oriented x3 in no acute distress Extrem Other: Right shoulder examination shows full range of motion when compared to his left shoulder, 4+ out of 5 strength with supraspinatus testing, positive impingement signs, no instability Office Procedures AMB Joint Injection/Aspiration Joint Injection/Aspiration Primary Site: right shoulder Prep: site was prepped using aseptic technique Injected: 40 mg of, DepoMedrol and 1% plain lidocaine Procedure: The patient tolerated the procedure well Coding - Large joint Procedure code (CPT) selection complete Assessment & Plan Assessment & Plan (1) Impingement of right shoulder: Code(s): M25.811 - Other specified joint disorders, right shoulder Category: Medical Plan Mr. Cross presents with right shoulder pain due to impingement syndrome. The risks and benefits of a right shoulder cortisone injection were discussed at length with the patient. The patient wished to proceed. He tolerated the i njection well. He will continue with his home stretching program. He will contact me prior to his follow-up appointment in 3 months should any questions or concerns arise. Feel free to call me at any time should questions regarding his orthopedic management arise. I spent 22 minutes in reviewing the patient's records and imaging studies, seeing the patient and documenting in the medical record. Orders: Orders AMB Joint Injection/Aspiration 03/26/25 M25.811 - Other specified joint di sorders, right shoulder Coding Level of Care Code Est Pt Level 3 (69277) Complex EM visit Add On G2211 Diagnoses Impingement of right shoulder M25.811 CPT Codes Coding - 37258 Large joint: 92658 - Large joint ([id number])
[2025-03-26 13:36] VITALS: BMI 36.0
--- OUTSIDE RECORDS SUMMARY | 2025-03-26 14:07 | XMS_ITS | Encounter Summary ---
Author Organization [facility] Address [address] [place] [address] Care Team Providers Care Cleaner And Preparer Name Role Phone Malgorzata Camargo Primary Care Provider Encounter Details Date Type Department Care Team (Late st Contact Info) Description 10/16/2024 Lab Requisition [facility] - Main Lab [address] [facility] [place] [address] Doc Moore PA [address] [place] [address] Malignant neoplasm of overlapping sites of bladder (CMS/HCC V24, CMS/HCC V28) Social History Tobacco Use Types Packs/Day Years Used Date Smoking Tobacco: Never Assessed Sex and Gender Information Value Date Recorded Sex Assigned at Male 11/29/2024 12:33 PM EDT Legal Sex Male 2:43 PM EST Gender Identity Male 11/29/2024 12:33 PM EDT Sexual Orientation Straight 11/29/2024 12 :33 PM EDT documented as of this encounter Plan of Treatment Upcoming Encounters Date Type Department Care Team (Late st Contact Info) Description 05/27/2025 10:20 AM EDT Office Visit [facility] [address] [place] [address] Huber Ward MD [address] [place] [address] [address]IVE [address] [place] [address] documented as of this encounter Procedures Procedure Name Priority Date/Time Associated Diagnosis Comments AP OUTSIDE CONSULT Routine 10/09/2024 12 :00 AM EST Malignant neoplasm of overlapping sites of bladder (CMS/HCC) documented in this encounter Results * Anatomic pathology outside consult (10/09/2024 12:00 AM EST) Final Diagnosis A. Urine, Voided, ([id number]): HIGH GRADE UROTHELIAL CARCINOMA Results of UroVysion fluorescence in situ hybridization (FISH) testing: CEP3: Abnormal CEP7: Abnormal CEP17: Abnormal LSI 9p21: Normal Interpretation: Abnormal profile Controls stained appropriately. Note: Abnormal results are considered suspicious for urothelial carcinoma. 10/24/2024 3:37 PM EST [facility] Clinical Information Malignant neoplasm of overlapping sites of bladder C67.8 Urine Cytology/FISH (now) 10/24/2024 3:37 PM EST [facility] Gross Description A. Urine, Voided, ([id number]): Received one ThinPrep slide for cytology and one ThinPrep slide for UroVysion FISH 10/24/2024 3:37 PM EST [facility] Disclaimer Unless otherwise specified, all tissue is 10% NB formalin fixed and paraffin embedded. Technical pathology services provided by [facility] at [address], [place] [address] (CLIA #[id number]/Carolina Au MD, Supervisor Fertilizer Processing) 10/24/2024 3:37 PM EST [facility] Tissue Urine specimen from urethra / Unknown 10/09/2024 10/16/2024 11:07 AM EST us Doc GRAF LAB PATHOLOGY ORDERAB LES Final Result [facility] [address] [place] [address], documented in this encounter Visit Diagnoses Diagnosis Malignant neoplasm of overlapping sites of bladder (CMS/HCC V24, CMS/HCC V28) documented in this encounter Additional Health Concerns Infection Onset Date Last Indicated Resolved Time Respiratory Rule-Out 12/04/2024 12/04/2024 025 2:56 AM EDT COVID-19 Rule-Out 12/04/2024 12/04/2024 12/04/2024 2:56 AM EDT documented as of this encounter Care Teams Cleaner And Preparer Relationship Specialty Start Date End Date Malgorzata Camargo PA [facility] [address] [place] [address] PCP - General Physician Storage Specialist 12/12/24 documented as of this encounter
== END 2025-03-26 14:02 | disposition home or self-care (01) ==
PROVIDERS: PCP Internal Medicine; Visit Provider Orthopaedic Surgery
DX: M25.811 Other specified joint disorders, right shoulder (principal)
CPT/HCPCS: 20610; 99213

== ENCOUNTER → 2025-03-26 13:18 | Outpatient (BNVA) | payer MEDICARE, SELFPAY | PROVIDERS: PCP Internal Medicine; Visit Provider Orthopaedic Surgery | DX: M25.811 Other specified joint disorders, right shoulder (principal); Z79.52 Long term (current) use of systemic steroids | CPT/HCPCS: 20610; 99212; J1010; J2003 ==

== ENCOUNTER 2025-06-26 13:19 | Outpatient (AMB) | payer MEDICARE, SELFPAY ==
--- NOTE | 2025-06-26 13:40 | A.OFFVIS_ITS ---
Intake Visit Reasons: Inj- Right shoulder pain, last inj 03/26/25 Intake Note: Juan is a 89 year old man who presents with complaints of right shoulder pain. He describes his pain as sharp in nature. He has had cortisone injections in the past which gave him fairly good relief. He wishes to hold off on surgery if at all possible. Allergies No Known Allergies Allergy (Verified 06/26/25 13:41) Medication List - Last Reconciled 06/26/25 by Cedric Graves MD amlodipine 5 mg PO DAILY aspirin (Adult Low Dose Aspirin) 81 mg PO DAILY Held on 07/11/24. Instructions: Resume on 07/18/24. You may resume 1 week after surgery atorvastatin 40 mg PO DAILY cholecalciferol (vitamin D3) (Vitamin D3) 25 mcg PO DAILY clopidogrel 75 mg PO DAILY Held on 07/11/24. Instructions: Resume on 07/18/24. you may resume plavix one week after surgery docusate sodium (Colace) 100 mg PO BID hydrochlorothiazide 25 mg PO DAILY multivitamin 1 tab PO DAILY omeprazole 20 mg PO DAILY oxybutynin chloride ER 10 mg PO DAILY tamsulosin 0.4 mg PO DAILY PFSH Medical History (Updated 12/10/24 @ 14:00 by Cedric Graves MD) Diverticulosis BPH (benign prostatic hyperplasia) APACHE (hard of hearing) Snores OAB (overactive bladder) Hx of bladder cancer (~2018) Arthritis Back pain GERD (gastroesophageal reflux disease) Hx-TIA (transient ischemic attack) (~2016) HLD (hyperlipidemia) HTN (hypertension) Surgical History (Updated 06/27/24 @ 09:31 by Soha Ch RN) Hx of arthroscopic knee surgery Hx of bilateral cataract extraction Hx laparoscopic cholecystectomy (~2013) Hx of cystoscopy (~2019) Hx of colonoscopy Social History Household Members: Spouse Housing: House Are you a primary patient care technician to a significant other at home: No Do you presently have visiting nurse or other home services: No Alcohol intake: current Alcohol intake frequency: holidays/special occasions only Patient Tobacco Use Status: Never used Tobacco Physical Exam Extrem Other: Right shoulder examination shows slightly decreased range of motion when compared to his left shoulder, 4/5 strength with supraspinatus testing, positive impingement signs, no instability Office Procedures AMB Joint Injection/Aspiration Joint Injection/Aspiration Primary Site: right shoulder Prep: site was prepped using aseptic technique Injected: 40 mg of, DepoMedrol and 1% plain lidocaine Procedure: The patient tolerated the procedure well Coding - Large joint Procedure code (CPT) selection complete Results Reviewed Results Reviewed: X-rays of the patient's right shoulder taken today show moderate to severe acromioclavicular joint narrowing, a type 2 acromion Assessment & Plan Assessment & Plan (1) Impingement of right shoulder: Code(s): M25.811 - Other specified joint disorders, right shoulder Category: Medical Plan Juan presents with right shoulder pain due to impingement syndrome. The risks and benefits of a right shoulder cortisone injection were discussed at length with the patient. The patient wished to proceed. Tolerated the injection well. He will continue with his activity modifications. He will contact me prior to his follow-up appointment in 3 months should any questions or concerns arise. Feel free to call me at any time should questions regarding his orthopedic management arise. I spent 22 minutes in reviewing the patient's records and imaging studies, seeing the patient and documenting in the medical record. Orders: Orders XR shoulder RT min 2V Today M25.811 - Other specified joint disorders, right shoulder AMB Joint Injection/Aspiration Today M25.811 - Other specified joint disorders, right shoulder Coding Level of Care Code Est Pt Level 3 (92572) Complex EM visit Add On G2211 Diagnoses Impingement of right shoulder M25.811 CPT Codes Coding - 54018 Large joint: 44740 - Large joint ([id number])
--- OUTSIDE RECORDS SUMMARY | 2025-06-26 16:43 | XMS_ITS | Encounter Summary ---
Author Organization [facility] Address [address] [place] [address] Care Team Providers Care Courtesy Booth Cashier Name Role Phone Malgorzata Camargo Primary Care Provider [phone]- [phone] Encounter Details Date Type Department Care Team (Late Contact Info) Description 04/02/2025 Lab Requisition [facility] - Main Lab [address] [facility] [place] [address] Bassem Sapp PA [address] [place] [address] Urinary tract infection, site not specified Social History Tobacco Use Types Packs/Day Years [...] care for your loved ones. For example, child development director or elderly care for an older adult? [...] Date Recorded What is your living situation? 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 EXTENDED SPECTRUM BETA-LACTAMASE PRODUCING ORGANISMS DEMONSTRATE DECREASED ACTIVITY WITH PENICILLINS, CEPHALOSPORINS AND AZTREONAM. Edited result: Previously reported as Escherichia coli on 04/04/2025 at 0959 EDT. Urine Urine specimen obtained by clean catch procedure / Unknown Non-blood Collection / Unknown 04/02/2025 3:15 PM EDT 04/02/2025 5:51 PM EDT Narrative Organism Antibiotic Method Susceptibility Escherichia coli ESBL Amoxicillin/Clavulanate CARLOS >=32 ug/ml: Resistant Escherichia coli ESBL Ampicillin/Sulbactam CARLOS >=32 ug/ml: Resistant Escherichia coli ESBL Piperacillin/Tazobactam CARLOS 16 ug/ml: Intermediate Escherichia coli ESBL Cefazolin (Urine) CARLOS >=32 ug/ml: Resistant Escherichia coli ESBL Cefoxitin CARLOS >=64 ug/ml: Resistant Escherichia coli ESBL Ceftazidime CARLOS >=32 ug/ml: Resistant Escherichia coli ESBL Ceftriaxone CARLOS 32 ug/ml: Resistant Escherichia coli ESBL Cefepime CRALOS 0.25 ug/ml: Susceptible Escherichia coli ESBL Meropenem CARLOS <=0.25 ug/ml: Susceptible Escherichia coli ESBL Amikacin CARLOS 2 ug/ml: Susceptible Escherichia coli ESBL Gentamicin CARLOS <=1 ug/ml: Susceptible Escherichia coli ESBL Ciprofloxacin CARLOS 0.25 ug/ml: Susceptible Escherichia coli ESBL Levofloxacin CARLOS 0.5 ug/ml: Susceptible Escherichia coli ESBL Nitrofurantoin CARLOS <=16 ug/ml: Susceptible Escherichia coli ESBL Trimethoprim/Sulfa methoxazol e CARLOS <=20 ug/ml: Susceptible us Bassem [facility] LAB MICROBIOLOGY - GENERAL ORD ERABLES Final Result [facility] LAB [address] [place] [address], documented in this encounter Visit Diagnoses Diagnosis Urinary tract infection, site not specified documented in this encounter Additional Health Concerns Infection Onset Date Last Indicated Resolved Time ESBL 04/02/2025 04/02/2025 documented as of this encounter Care Teams Courtesy Booth Cashier Relationship Specialty Start Date End Date [facility]zata Camargo [facility] [address] [place] [address] PCP - General Physician Revenue Stamp Clerk 12/12/24 documented as of this encounter
--- OUTSIDE RECORDS SUMMARY | 2025-06-26 16:43 | XMS_ITS | Encounter Summary ---
Author Organization [facility] Address [address] [place] [address] Care Team Providers Care Automobile Sales Consultant Name Role Phone Malgorzata Camargo Primary Care Provider [phone]- [phone] Encounter Details Date Type Department Care Team (Late Contact Info) Description 12/11/2024 Lab Requisition [facility] - Main Lab [address] [facility] [place] [address] Doc Hopkins MD [address] [place] [address] Personal history of malignant neoplasm of bladder Social History Tobacco Use Types Packs/Day Years [...] your loved ones. For example, early childhood associate teacher or elderly care for an older [...] Associated Diagnosis Comments AP OUTSIDE CONSULT Routine 12/06/2024 12 :00 AM EDT Personal history of malignant neoplasm of bladder documented in this encounter Results * Anatomic pathology outside consult (12/06/2024 12:00 AM EDT) Final Diagnosis A. Urine, Voided, ([id number]): Negative for high grade urothelial carcinoma. Scant urothelial cellularity present. Results of UroVysion fluorescence in situ hybridization (FISH) testing: Although FISH was performed, insufficient cells are present for evaluation and interpretation. 12/13/2024 5:31 PM EDT [facility] Clinical Information History of bladder neoplasm (malignant) Z85.51 Urine Cytology/FISH (now) 12/13/2024 5:31 PM EDT [facility] Gross Description A. Urine, Voided, ([id number]): Received one ThinPrep slide for cytology and one ThinPrep slide for UroVysion FISH 12/13/2024 5:31 PM EDT [facility] Disclaimer Unless otherwise specified, all tissue is 10% NB formalin fixed and paraffin embedded. Technical pathology services provided by [facility] at [address] [place] [address] [address], [place] [address] (CLIA #[id number]/Carolina Au MD, Irrigation System Installer) 12/13/2024 5:31 PM EDT [facility] Tissue Urine specimen from urethra / Unknown 12/06/2024 12/11/2024 10:30 AM EDT us Doc Hopkins MD LAB PATHOLOGY ORDERABLES Final Result [facility] [address] [place] [address], documented in this encounter Visit Diagnoses Diagnosis Personal history of malignant neoplasm of bladder documented in this encounter Additional Health Concerns Infection Onset Date Last Indicated Resolved Time ESBL 04/02/2025 04/02/2025 documented as of this encounter Care Teams Automobile Sales Consultant Relationship Specialty Start Date End Date [facility] Camargo [facility] [address] [place] [address] PCP - General Physician Shuttle Driver 12/12/24 documented as of this encounter
--- OUTSIDE RECORDS SUMMARY | 2025-06-26 16:43 | XMS_ITS | Encounter Summary ---
Author Organization [facility] Address [address] [place] [address] Care Team Providers Care Retail Salesperson Name Role Phone Malgorzata Camargo Primary Care Provider [phone]- [phone] Encounter Details Date Type Department Care Team (Late Contact Info) Description 04/01/2025 Lab Requisition [facility] - Main Lab [address] [facility] [place] [address] Doc Hopkins MD [address] [place] [address] Personal history of malignant neoplasm [...] for your loved ones. For example, child caregiver private home or elderly care for an older adult? [...] Procedure Name Priority Date/Time Associated Diagnosis Comments NON-GYNECOLOGIC CYTOLOGY Routine 03/28/2025 12:00 AM EDT Personal history of malignant neoplasm of bladder documented in this encounter Results * Non-gynecologic cytology (03/28/2025 12:00 AM EDT) Addendum Results of UroVysion fluorescence in situ hybridization (FISH) testing: CEP3: Abnormal CEP7: Abnormal CEP17: Abnormal LSI 9p21: Normal Interpretation: Abnormal profile Controls stained appropriately. Note: Abnormal results are considered suspicious for urothelial carcinoma. 04/15/2025 1:32 PM EDT [facility] Addendum electronically signed by Robert Gomez MD on 04/15/2025 at 1:32 PM Final Diagnosis A. Urine, Voided, ([id number]): Suspicious for high grade urothelial carcinoma. Note: Based upon the cytologic findings, UroVysion testing will be performed, the result to follow in an addendum. 04/15/2025 1:32 PM EDT [facility] Specimen A Adequacy Satisfactory for evaluation 04/15/2025 1:32 PM EDT [facility] Gross Description A. Urine, Voided, ([id number]): Received is one ThinPrep slide for cytology. Urine cytology with reflex UroVysion ([facility]) 04/15/2025 1:32 PM EDT [facility] Disclaimer Technical pathology services provided by [facility] at [address], [place] [address] (CLIA #[id number]/Carolina Au MD, Sandblaster Stone) Unless otherwise specified, all tissue is 10% NB formalin fixed and paraffin embedded. 04/15/2025 1:32 PM EDT [facility] Urine Urine specimen from urethra / Unknown 03/28/2025 04/01/2025 2:13 PM EDT us Doc Hopkins MD LAB CYTOLOGY ORDERABLES Edited Result - Final [facility] [address] [place] [address], documented in this encounter Visit Diagnoses Diagnosis Personal history of malignant neoplasm of bladder documented in this encounter Additional Health Concerns Infection Onset Date Last Indicated Resolved Time ESBL 04/02/2025 04/02/2025 documented as of this encounter Care Teams Retail Salesperson Relationship Specialty Start Date End Date Malgorzata Camargo PA [facility] [address] [place] [address] PCP - General Physician Tin Container Straightener 12/12/24 documented as of this encounter
--- OUTSIDE RECORDS SUMMARY | 2025-06-26 16:43 | XMS_ITS | Encounter Summary ---
Author Organization [facility] Address [address] [place] [address] Care Team Providers Care Laundry Washer Name Role Phone Malgorzata Camargo Primary Care Provider Encounter Details Date Type Department Care Team (Late st Contact Info) Description 10/16/2024 Lab Requisition [facility] - Main Lab [address] [facility] [place] [address] Doc Moore PA [address] [place] [address] Malignant neoplasm of overlapping sites [...] AM EST) Final Diagnosis A. Urine, Voided, ([id number]): HIGH GRADE UROTHELIAL CARCINOMA Results of UroVysion [...] HOSPITAL LAB Gross Description A. Urine, Voided, ([id number]): Received one ThinPrep slide for cytology and one ThinPrep slide for UroVysion FISH 10/24/2024 3:37 PM EST [facility] Disclaimer Unless otherwise specified, all tissue is 10% NB formalin fixed and paraffin embedded. Technical pathology services provided by [facility] at [address] [facility] [address], [place] [address] (CLIA #[id number]/Carolina Au MD, Hat Copyist) 10/24/2024 3:37 PM [facility] Tissue Urine specimen from urethra / Unknown 10/09/2024 10/16/2024 11:07 AM EST us Doc GRAF LAB PATHOLOGY ORDERAB LES Final Result [facility] [address] [place] [address], documented in this encounter Visit Diagnoses Diagnosis Malignant neoplasm of overlapping sites of bladder (CMS/HCC V24, CMS/HCC V28) documented in this encounter Additional Health Concerns Infection Onset Date Last Indicated Resolved Time Respiratory Rule-Out 12/04/2024 12/04/2024 025 2:56 AM EDT COVID-19 Rule-Out 12/04/2024 12/04/2024 12/04/2024 2:56 AM EDT ESBL 04/02/2025 04/02/2025 documented as of this encounter Care Teams Laundry Washer Relationship Specialty Start Date End Date Malgorzata Camargo PA [facility] [address] [place] [address] PCP - General Physician Plate Maker 12/12/24 documented as of this encounter
--- OUTSIDE RECORDS SUMMARY | 2025-06-26 16:43 | XMS_ITS | Encounter Summary ---
Author Organization [facility] Address [address] [place] [address] Care Team Providers Care Wool Shearing Supervisor Name Role Phone Malgorzata Camargo Primary Care Provider [phone]- [phone] Encounter Details Date Type Department Care Team (Late Contact Info) Description 04/14/2025 Lab Requisition [facility] - Main Lab [address] [facility] [place] [address] Doc Hopkins MD [address] [place] [address] Urinary tract infection, site not [...] for your loved ones. For example, child welfare director or elderly care for an older [...] Date/Time Associated Diagnosis Comments CULTURE URINE Routine 04/14/2025 3:11 PM EDT Urinary tract infection, site not specified documented in this encounter Results * Culture urine (04/14/2025 3:11 PM EDT) Culture, Urine No growth 04/15/2025 2:08 PM EDT [facility] Urine Urine specimen obtained by clean catch procedure / Unknown 04/14/2025 3:11 PM EDT 04/14/2025 5:42 PM EDT us Doc Hopkins MD LAB MICROBIOLOGY - GENERAL SHANI DUDLEY Final Result [facility] [address] [place] [address], [place] [phone] documented in this encounter Visit Diagnoses Diagnosis Urinary tract infection, site not specified documented in this encounter Additional Health Concerns Infection Onset Date Last Indicated Resolved Time ESBL 04/02/2025 04/02/2025 documented as of this encounter Care Teams Wool Shearing Supervisor Relationship Specialty Start Date End Date Malgorzata Camargo PA [facility] [address] [place] [address] PCP - General Physician Performance Improvement Coordinator 12/12/24 documented as of this encounter
--- OUTSIDE RECORDS SUMMARY | 2025-06-26 16:44 | XMS_ITS | Clinical Summary ---
Author Organization LL [address] [place] [address] [place] [phone] Phone Care Team Providers Care Belt Lacer Name Role Phone Malgorzata Camargo Primary Care Provider [phone] Allergies No known active allergies Medications atorvastatin (LIPITOR) 40 mg tablet Take 1 tablet (40 mg total) by mouth 1 (one) time each day. 5 Active clopidogreL (PLAVIX) 75 mg tablet Take 1 tablet (75 mg total) by mouth 1 (one) time each day. 5 Active finasteride (PROSCAR) 5 mg tablet Take 1 tablet (5 mg total) by mouth 1 (one) time each day. 5 Active omeprazole (PriLOSEC) [address] capsule Take 1 capsule (20 mg total) by mouth 1 (one) time each day. 5 Active oxyBUTYnin XL (DITROPAN-XL) 10 mg 24 hr tablet Take 1 tablet (10 mg total) by mouth 1 (one) time each day. 5 Active tamsulosin (FLOMAX) 0.4 mg 24 hr capsule Take 1 capsule (0.4 mg total) by mouth at bedtime. 5 Active aspirin 81 mg EC tablet Take 1 tablet (81 mg total) by mouth 1 (one) time each day. Active spironolactone (ALDACTONE) 25 mg tablet Take 1 tablet (25 mg total) by mouth 1 (one) time each day. 30 each 5 Active metoprolol tartrate (LOPRESSOR) 25 mg tablet Take 1 tablet (25 mg total) by mouth 2 (two) times a day. 60 each 5 Active furosemide (LASIX) 20 mg tablet Take 60mg daily in am and 40mg in evening 90 each 5 Active multivit-min/foli c acid/lutein (CENTRUM SILVER ORAL) Take 1 tablet by mouth 1 (one) time each day. Active cholecalciferol (VITAMIN D-3) 25 mcg (1,000 unit) tablet Take 1 tablet (1,000 Units total) by mouth 1 (one) time each day. Active docusate sodium (Colace) 100 mg capsule Take 1 capsule (100 mg total) by mouth if needed for constipation. Active betamethasone dipropionate (DIPROSONE) 0.05 % cream Apply topically if needed. Active Active Problems Problem Noted Date Diagnosed Date CHF (congestive heart failure) ([facility] V24, [facility] /[facility] V28) 12/05/2024 Assessment & Plan (05/27/2025 3:49 PM EDT): Recent admission for what appears to been some diastolic dysfunction. Treated with IV Lasix. Patient is presently well-managed medically and well diuresed at this time. Last echocardiogram shows a relatively preserved EF of 55 to 60%. I considered the introduction of slightly more afterload reduction in this patient but decided to hold off on that right now. He has some mild residual ischemia. I discussed with him and his the need to contact us if he develops 2 to 3 pounds of weight gain does not caloric weight gain in a 24-hour period so that we can adjust his medical management and diurese and prevent him from going to the hospital for IV diuresis. They state they understood the need and he does have a scale and weighs himself at home. Otherwise no other changes to medical management at this time. Could consider adding Entresto in the future but his EF is so close to normal right now I do not want to do anything that can jeopardize his other medical issues. He may need additional changes to medical therapy in the future Orders: Ambulatory referral to Cardiology ECG 12 lead Shortness of breath 12/04/2024 Acute congestive heart failu re, unspecified heart failure type ([facility] V24, [facility] V28) 11/30/2024 Bilateral leg edema 11/29/2024 Primary hypertension 11/29/2024 Pure hypercholesterolemia 11/29/2024 CVA (cerebral vascular accident) ([facility] V24, [facility] V28) 11/29/2024 GERD (gastroesophageal reflux disease) BPH (benign prostatic hyperplasia) 11/29/2024 Bladder cancer ([facility] V24, [facility] V28) 2024 Assessment & Plan (11/29/2024 5:23 PM EDT): Treated by Dr Sandeep GONZALEZ (hyperlipidemia) Resolved Problems Problem Noted Date Diagnosed Date Resolved Date HLD (hyperlipidemia) 025 Encounters Date Type Department Care Team Description 05/27/2025 10:20 AM EDT Office Visit [facility] [address] [place] [address] Ayleen Ward MD Congestive heart failure, unspecified HF chronicity, unspecified heart failure type ([facility] V24, [facility] V28) 04/14/2025 Lab Requisition [facility] Lab [address] [place] [address] Doc Hopkins MD Urinary tract infection, site not specified 04/02/[address] [facility] [address] [place] [address] Bassem Sapp PA Urinary tract infection, site not specified 04/01/[address] [facility] [address] [place] [address] Doc Hopkins MD Personal history of malignant neoplasm of bladder from Last 3 Months Surgical History Surgery Date Site/Laterality Comments CHOLECYSTECTOMY SPINE SURGERY Medical History Medical History Date Comments Hypertension HLD (hyperlipidemia) History of cholecystectomy H/O arthroscopy of knee HLD (hyperlipidemia) CVA (cerebral vascular accident) ([facility] V24, [facility] V28) BPH (benign prostatic hyperplasia) BPH (benign prostatic hyperplasia) CHF (congestive heart failure) ([facility] V24, [facility] V28) Family History Medical History Relation Name Comments [...] your loved ones. For example, early childhood lead teacher or elderly care for an older [...] Sign Reading Time Taken Comments Blood Pressure 124/70 05/27/2025 10:35 AM EDT Pulse 65 05/27/2025 10:35 AM EDT Temperature 36.6 C (97.8 F) 12/05/2024 2:15 PM EDT Respiratory Rate 18 12/05/2024 2:15 PM EDT Oxygen Saturation 95% 05/27/2025 10:35 AM EDT Inhaled Oxygen Concentration - - Weight 104 kg (229 lb 6.4 oz) 05/27/2025 10:35 A M EDT Height 163.8 cm (5' 4.5 ) 05/27/2025 10:35 AM ED T Body Mass Index 38.77 05/27/2025 10:35 AM EDT Plan of Treatment Health Maintenance Due Date Last Done Comments Zoster Vaccines (1 of 2) 1985 RSV Immunization Adult Patients (1 - 1-dose 75+ series) 2010 Pneumococcal Vaccine: 50+ Years (2 of 2 - PCV) 03/07/2016 03/07/2015 Cholesterol Screening (Lipid Panel) 08/10/2022 Medicare Annual Wellness Visit 08/10/2022 Depression Screening 09/11/2024 COVID-19 Vaccine ( season) 2025 08/16/2021, 11/09/2020, 10/19/2020 Influenza Vaccine (#1) 2025 Social Influencers of Health Screening 12/04/2025 [...] age to complete this topic Meningococcal B Vaccine Aged Out No l onger eligible based on patient's age to complete this topic RSV Immunization Patients Under 20 months Aged Out No longer eligible based on patient's age to complete this topic Varicella Vaccines Aged Out No longer eligible based on patient's age to complete this topic Procedures Procedure Name Priority Date/Time Associated Diagnosis Comments ECG 12-LEAD Routine 05/27/2025 10:47 AM EDT Congestive heart failure, unspecified HF chronicity, unspecified heart failure type ([facility]/HCC V24, [facility] V28) CULTURE URINE Routine 04/14/2025 3:11 PM EDT Urinary tract infection, site not specified CULTURE URINE Routine 04/02/2025 3:15 PM EDT Urinary tract infection, site not specified NON-GYNECOLOGIC CYTOLOGY Routine 03/28/2025 12:00 AM EDT Personal history of malignant neoplasm of bladder BASIC METABOLIC PANEL Routine 12/05/2024 5:40 AM EDT from Last 3 Months or Most Recently Relevant to Health Maintenance Results * ECG 12 lead (05/27/2025 10:47 AM EDT) Pathologist [facility] Ventricular Rate ECG 53 BPM GEMUSE Atrial Rate 53 BPM GEMUSE P-R Interval 226 ms GEMUSE QRS Duration 100 ms GEMUSE Q-T Interval 460 ms GEMUSE QTc 431 ms GEMUSE P Wave [place] 2 degrees GEMUSE R [place] -14 degrees GEMUSE T [place] 4 degrees GEMUSE ECG Interpretation Sinus bradycardia with 1st degree A-V block Otherwise normal ECG When compared with ECG of 30-NOV-2024 11:00, Premature atrial complexes are no longer Present Confirmed by Ezio WARD, AYLEEN ([id number]) on 05/27/2025 12:51:50 PM GEMUSE 05/27/2025 10:4 7 AM EDT 05/27/2025 12:51 PM EDT Ayleen Ward MD ECG ORDERABLES Final Result GEMUSE * Culture urine (04/14/2025 3:11 PM EDT) Only the most recent of2 resultswithin the time period is included. [facility] Culture, Urine No growth 04/15/2025 2:08 PM EDT [facility] Urine Urine specimen obtained by clean catch procedure / Unknown 04/14/2025 3:11 PM EDT 04/14/2025 5:42 PM EDT Doc Hopkins MD LAB MICROBIOLOGY - GENERAL ORDVee DUDLEY Final Result [facility] [address] [place] [address], [place] [phone] * Non-gynecologic cytology (03/28/2025 12:00 AM EDT) Pathologist [facility] Addendum Results of UroVysion fluorescence in situ hybridization (FISH) testing: CEP3: Abnormal CEP7: Abnormal CEP17: Abnormal LSI 9p21: Normal Interpretation: Abnormal profile Controls stained appropriately. Note: Abnormal results are considered suspicious for urothelial carcinoma. 04/15/2025 1:32 PM EDT [facility] Addendum electronically signed by Robert Gomez MD on 04/15/2025 at 1:32 PM Final Diagnosis A. Urine, Voided, ([id number]): Suspicious for high grade urothelial carcinoma. Note: Based upon the cytologic findings, UroVysion testing will be performed, the result to follow in an addendum. 04/15/2025 1:32 PM EDT [facility] Specimen A Adequacy Satisfactory for evaluation 04/15/2025 1:32 PM EDT [facility] Gross Description A. Urine, Voided, ([id number]): Received is one ThinPrep slide for cytology. Urine cytology with reflex UroVysion (AUC/GUC) 04/15/2025 1:32 PM EDT [facility] Disclaimer Technical pathology services provided by [facility] at [address] [address] (CLIA #[id number]/Carolina Au MD, Oral And Maxillofacial Surgeon) Unless otherwise specified, all tissue is 10% NB formalin fixed and paraffin embedded. 04/15/2025 1:32 PM EDT [facility] Urine Urine specimen from urethra / Unknown 03/28/2025 04/01/2025 2:13 PM EDT us Doc Hopkins MD LAB CYTOLOGY ORDERABLES Edited Result - Final [facility] [address] [place] [address], [place] [phone] * (ABNORMAL) Basic metabolic panel (12/05/2024 5:40 AM EDT) Sodium 138 133 - 145 mmol/L LAB CHEMISTRY METHOD 12/05/2024 6:58 AM [facility] Potassium 3.9 3.5 - 5.5 mmol/L LAB CHEMISTRY METHOD 12/05/2024 6:58 AM [facility] Chloride 102 96 - 110 mmol/L LAB CHEMISTRY METHOD 12/05/2024 6:58 AM [facility] CO2 31 21 - 32 mmol/L LAB CHEMISTRY METHOD 12/05/2024 6:58 AM [facility] Anion Gap 5 3 - 11 LAB CHEMISTRY METHOD 12/05/2024 6:58 AM [facility] Glucose 109(H) 70 - 100 mg/dL LAB CHEMISTRY METHOD 12/05/2024 6:58 AM [facility] BUN 13 5 - 25 mg/dL LAB CHEMISTRY METHOD 12/05/2024 6:58 AM [facility] Creatinine 0.89 0.70 - 1.30 mg/dL LAB CHEMISTRY METHOD 12/05/2024 6:58 AM [facility] eGFR 82 >=60 mL/min/1. 73m2 LAB CHEMISTRY METHOD 12/05/2024 6:58 AM [facility] Comment:Calculation based on the Chronic Kidney Disease Epidemiology Collaboration (CKD-EPI) equation refit without adjustment for race. 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 [address] [place] [address] PCP - General Physician Software Deployment Engineer 12/12/24
== END 2025-06-26 14:03 | disposition home or self-care (01) ==
LOC: HO.HOS 13:20
PROVIDERS: PCP Internal Medicine; Visit Provider Orthopaedic Surgery
DX: M25.811 Other specified joint disorders, right shoulder (principal)
CPT/HCPCS: 20610

== ENCOUNTER 2025-06-26 13:19 | Outpatient (REF) | payer MEDICARE, SELFPAY ==
--- NOTE | ~2025-06-26 | XR_ITS ---
CLINICAL HISTORY: M25.811 - Other specified joint disorders, right shoulder 2 view right shoulder Comparison: None provided Findings: No fractures or dislocations. No significant arthritic change. No erosions. No radiopaque foreign body. IMPRESSION: 1. No acute findings This document has been electronically signed by: Peter Emerson MD on 06/27/2025 10:45:38
== END 2025-06-26 13:20 | disposition home or self-care (01) ==
LOC: HO.HOSX 13:19
PROVIDERS: PCP Internal Medicine; Visit Provider Orthopaedic Surgery
DX: M25.811 Other specified joint disorders, right shoulder (principal)
CPT/HCPCS: 20610; 73030; J1010; J2003

== ENCOUNTER → 2025-06-26 13:22 | Outpatient (BNV) | payer MEDICARE, SELFPAY | PROVIDERS: PCP Internal Medicine; Visit Provider Specialist | DX: M25.811 Other specified joint disorders, right shoulder (principal) | CPT/HCPCS: 73030 ==